=== PATIENT | male | born 1970 | race Caucasian/White ===

== ENCOUNTER 2018-04-02 10:12 | Emergency (ER) | payer OTHER, SELFPAY ==
[2018-04-02 10:17] VITALS: BP 161/96; PULSE 76; RESP 18; TEMP 36.3; O2SAT 97
[2018-04-02 11:42] VITALS: BP 149/96; PULSE 64; RESP 17; O2SAT 96
--- NOTE | 2018-04-02 12:23 | PC.NURSE ---
C/O left kidney pain starting yesterday, Calf pain since Friday, and headaches and fatigue for 3 weeks. HX of diabetes and HTN. Denies urinary symptoms. States calf pain affects his walking at times but thinks it is nerve pain.
[2018-04-02 12:24] LABS: Add Manual Diff / Slide Review NO; Basophils Percent Auto 0.4 % (0-2); Eosinophils Percent Auto 1.5 % (2-4); Hematocrit 45.2 % (41-53); Hemoglobin 15.7 g/dL (13.5-17.5); Lymphocytes Percent Auto 25.3 % (25-40); Mean Corpuscular HGB Conc 34.7 % (30-36); Mean Corpuscular Hemoglobin 30.4 PG (26-34); Mean Corpuscular Volume 87.8 fL (80-100); Monocytes Percent Auto 9.1 % (3-14); Neutrophils Absolute Auto 3900 /uL (3000-5900); Neutrophils Percent Auto 63.7 % (50-75); Platelet Count 186 X10^3/uL (150-400); Red Blood Cell Count 5.15 X10^6/uL (4.5-5.9); Red Cell Distribution Width 13.3 % (11.6-14.8); White Blood Cell Count 6.1 X10^3/uL (4.5-11.0)
[2018-04-02 12:38] LABS: Alanine Aminotransferase 48 IU/L (21-72); Albumin 4.5 g/dL (3.5-5.0); Albumin Globulin Ratio 1.6 (1.0-2.8); Alkaline Phosphatase 39 U/L (38-126); Aspartate Aminotransferase 38 IU/L (17-59); BUN Creatinine Ratio 21.4 (6-22); Bilirubin Total 0.5 mg/dL (0.2-1.3); Blood Urea Nitrogen 15 mg/dL (9-20); Calcium 9.5 mg/dL (8.4-10.2); Carbon Dioxide 23 mmol/L (22-32); Chloride 104 mmol/L (98-107); Estimated Glomerular Filt Rate > 60.0 mL/min (>60); Globulin 2.8 g/dL (1.7-4.1); Glucose 121 mg/dL (70-100); HEMOLYSIS 35 (0-50); Magnesium 2.1 mg/dL (1.6-2.3); Potassium 4.4 mmol/L (3.4-5.1); Sodium 141 mmol/L (137-145); Total Protein 7.3 g/dL (6.3-8.2)
--- NOTE | 2018-04-02 12:41 | ED.MALEGU ---
HPI - Male Genitourinary <AISSATOU Devi - Last Filed: 04/02/18 21:37> General Chief complaint: Back Pain/Injury Stated complaint: ACUTE KIDNEY PAIN, CALF PAIN, DIABETIC Time Seen by Provider: 04/02/18 11:51 Source: patient Mode of arrival: ambulatory Limitations: no limitations History of Present Illness HPI Narrative: 47-year-old male with history of type 2 diabetes is a nonsmoker here for complaint of having pain into his left flank area that started yesterday. He reports he woke up today with pain that was worse and sharp in nature he states. He denies any hematuria. Denies any crease urinary frequency or dysuria. No fever no chills. He denies any abdominal pain. Last bowel movement was earlier today and was unremarkable. No nausea or vomiting. Positive p.o. intake. He also states that he has had pain into his left calf area over the past couple of weeks. He denies any trauma to the calf area. He denies any swelling. Or erythema. He denies any stressors or relievers of his pain. Related Data Home Medications Medication Instructions Recorded Confirmed [Marijuana] #0 03/20/17 02/09/18 coenzyme Q10 [Co Q-10] 100 mg PO HS #0 06/03/17 02/09/18 lansoprazole 15 mg capsule,delayed 15 mg PO DAILY PRN 11/21/17 02/09/18 release Previous Rx's Medication Instructions Recorded simvastatin 20 mg PO HS #90 tab 06/13/17 lisinopril 20 mg tablet 20 mg PO BID #180 tab 10/24/17 metformin 1,000 mg tablet 1,000 mg PO BIDCC #180 tab 12/09/17 Allergies Allergy/AdvReac Type Severity Reaction Status Date / Time Penicillins [PENICILLINS] Allergy Intermediate CHILDHOOD Unverified 02/09/18 08:55 Review of Systems <AISSATOU Devi - Last Filed: 04/02/18 21:37> Constitutional Denies chills, Denies fever(s), Denies lethargy and Denies weakness Eyes Denies change in vision, Denies eye discharge, Denies irritation and Denies loss of vision ENT Ears, Nose, Mouth, and Throat: Denies change in voice, Denies neck pain and Denies sore throat Cardiovascular Denies chest pain, Denies irregular heart rhythm, Denies lightheadedness, Denies palpitations, Denies dyspnea, Denies dyspnea on exertion and Denies orthopnea Respiratory Denies cough, Denies dyspnea, Denies dyspnea on exertion and Denies wheezing Gastrointestinal Gastrointestinal: Denies abdominal pain, Denies change in bowel habits, Denies diarrhea, Denies nausea and Denies vomiting Genitourinary Comments: Left flank pain Musculoskeletal Denies neck pain Comments: Right calf pain Integumentary/Breasts Denies pruritus, Denies erythema, Denies rash and Denies wounds Neurologic Denies confusion, Denies loss of vision and Denies weakness Psychiatric Denies anxiety, Denies confusion, Denies depression, Denies homicidal ideation and Denies suicidal ideation Endocrine Denies palpitations Hematologic/Lymphatic Denies easy bruising Allergic/Immunologic Denies wheezing Exam <AISSATOU Devi - Last Filed: 04/02/18 21:37> Initial Vital Signs Initial Vital Signs: Vital Signs Temperature 97.4 F L 04/02/18 10:17 Pulse Rate 76 04/02/18 10:17 Respiratory Rate 18 04/02/18 10:17 Blood Pressure 161/96 H 04/02/18 10:17 Pulse Oximetry 97 04/02/18 10:17 Const General: cooperative and well developed Nutritional Appearance: well nourished Orientation: alert, awake, oriented x3 and not confused HENMT Mouth: oral mucosae normal and moist mucous membranes Eyes Conjunctivae: conjunctivae normal Sclera: sclerae normal Pupils: PERRL EOM: EOM intact bilaterally Resp Effort & Inspection: normal respiratory effort, able to speak in complete sentences, no respiratory distress and no use of accessory muscles Auscultation: clear to auscultation bilaterally, no rales, no rhonchi and no wheezes Cardio Rate: regular rate Rhythm: regular rhythm Heart Sounds: no click, no gallops, no murmurs and no rubs Pulses: normal peripheral pulses GI Inspection: non-distended Palpation: soft, no hepatosplenomegaly, No guarding, No pulsatile mass and No tender Auscultation: normal bowel sounds General: No CVA tenderness Skin General: no rashes or lesions noted, No jaundice and No petechiae Neuro General: alert, oriented x3, gait normal and no focal motor deficits Speech: speech normal <Esperanza Houser DO - Last Filed: 04/03/18 09:06> Initial Vital Signs Initial Vital Signs: Vital Signs Temperature 97.4 F L 04/02/18 10:17 Pulse Rate 76 04/02/18 10:17 Respiratory Rate 18 04/02/18 10:17 Blood Pressure 161/96 H 04/02/18 10:17 Pulse Oximetry 97 04/02/18 10:17 Course <AISSATOU Devi - Last Filed: 04/02/18 21:37> Orders Ordered: Discontinued Medications Sodium Chloride (Normal Saline 0.9%) 1,000 mls @ 1,000 mls/hr IV BOLUS ONE Stop: 04/02/18 14:00 Last Infusion: 04/02/18 14:44 Dose: 0 mls/hr Admin: 04/02/18 13:07 Dose: 1,000 mls/hr Ketorolac Tromethamine (Toradol) 30 mg IV NOW ONE Stop: 04/02/18 13:02 Last Admin: 04/02/18 13:07 Dose: 30 mg Vital Signs - 8 hr 04/02/18 17:01 Pulse Rate 63 Respiratory Rate 20 Blood Pressure 144/100 H Pulse Oximetry 96 <Esperanza Houser DO - Last Filed: 04/03/18 09:06> Orders Ordered: Discontinued Medications Sodium Chloride (Normal Saline 0.9%) 1,000 mls @ 1,000 mls/hr IV BOLUS ONE Stop: 04/02/18 14:00 Last Infusion: 04/02/18 14:44 Dose: 0 mls/hr Admin: 04/02/18 13:07 Dose: 1,000 mls/hr Ketorolac Tromethamine (Toradol) 30 mg IV NOW ONE Stop: 04/02/18 13:02 Last Admin: 04/02/18 13:07 Dose: 30 mg Vital Signs - 8 hr 04/02/18 17:01 Pulse Rate 63 Respiratory Rate 20 Blood Pressure 144/100 H Pulse Oximetry 96 MDM - Male Genitourinary <AISSATOU Devi - Last Filed: 04/02/18 21:37> Lab Data Result diagrams: 04/02/18 12:16 04/02/18 12:16 Lab Results 04/02/18 04/02/18 Range/Units 12:16 12:16 WBC 6.1 (4.5-11.0) X10^3/uL RBC 5.15 (4.5-5.9) X10^6/uL Hgb 15.7 (13.5-17.5) g/dL Hct 45.2 (41-53) % MCV 87.8 (80-100) fL MCH 30.4 (26-34) PG MCHC 34.7 (30-36) % RDW 13.3 (11.6-14.8) % Plt Count 186 (150-400) X10^3/uL Neut % (Auto) 63.7 (50-75) % Lymph % (Auto) 25.3 (25-40) % [place] % (Auto) 9.1 (3-14) % Eos % (Auto) 1.5 L (2-4) % Baso % (Auto) 0.4 (0-2) % Neut # (Auto) 3900 (7100-7532) /uL Sodium 141 (137-145) mmol/L Potassium 4.4 (3.4-5.1) mmol/L Chloride 104 (98-107) mmol/L Carbon Dioxide 23 (22-32) mmol/L BUN 15 (9-20) mg/dL Creatinine 0.70 (0.66-1.25) mg/dL Estimated GFR > 60.0 (>60) mL/min BUN/Creatinine Ratio 21.4 (6-22) Glucose 121 H (70-100) mg/dL Calcium 9.5 (8.4-10.2) mg/dL Magnesium 2.1 (1.6-2.3) mg/dL Total Bilirubin 0.5 (0.2-1.3) mg/dL AST 38 (17-59) IU/L ALT 48 (21-72) IU/L Alkaline Phosphatase 39 (38-126) U/L Total Protein 7.3 (6.3-8.2) g/dL Albumin 4.5 (3.5-5.0) g/dL Globulin 2.8 (1.7-4.1) g/dL Albumin/Globulin Ratio 1.6 (1.0-2.8) Urine Dip Bedside Urine Glucose Negative Bedside Urine Bilirubin - Negative Bedside Urine Ketone - Negative Urine Specific Acra 1.030 Bedside Urine Occult Blood - Negative Bedside Urine pH 6.0 Bedside Urine Protein - Negative Bedside Urine Urobilinogen - Negative Bedside Urine Nitrite - Negative Bedside Urine Leukocytes - Negative Esterase Imaging Data CT scan - abdomen: Radiologist's impression: [address] [place] [id number] Scan Report Signed Patient: Sav Rush LMR#: [id number] : 1970Acct:[id number] Age/Sex: 47 / MDate of Service: 04/02/18 Loc: ED Accession Number: [id number] Procedure: CT kidney ureter bladder (KUB) Ordering Provider: Nestor Hartman PROCEDURE: CT KIDNEY URETER BLADDER (KUB) INDICATIONS: Left flank pain TECHNIQUE: Noncontrast 5 mm thick sections acquired from the diaphragms to the symphysis. 5 mm thick coronal and sagittal reformats were then performed. For radiation dose reduction, the following was used: automated exposure control, adjustment of mA and/or kV according to patient size. COMPARISON: None. FINDINGS: Image quality: Excellent. Lung bases: Lung bases are clear. Heart size is normal. Urinary system: Both kidneys are normal in size. No kidney stones on the left but there is a 1-2 mm superior nonobstructive right renal collecting system calculus. No hydronephrosis or perinephric fat stranding. Both ureters appear non-dilated throughout their expected courses. Bladder wall thickness is normal; no calcified bladder stones. Other solid organs: Liver is normal in size. Gallbladder appears previously resected. Pancreas is normal in contours. Spleen is normal in size. No adrenal nodules. Peritoneum and bowel: Unenhanced bowel loops demonstrate normal wall thickness and caliber. No free fluid or air. Nodes and vessels: No retroperitoneal or mesenteric adenopathy by size criteria. Aorta and inferior vena cava are normal in caliber. Abdominal wall: No ventral hernias. Pelvis: No free pelvic fluid. No inguinal hernias or adenopathy. Bones: No suspicious bony lesions. No vertebral body compression fractures. IMPRESSION: Nonobstructive 1-2 mm calculus at the superior third collecting system of the right kidney. Prior cholecystectomy. No source of reported left-sided flank pain is found. Dictated by: Luciano Arriola M.D. on 04/02/2018 at 14:12 Approved by: Luciano Arriola M.D. on 04/02/2018 at 14:14 Venous US: Radiologist's impression: [address] [id number] Ultrasound Report Signed Patient: Sav Rush LMR#: [id number] : 1970Acct:[id number] Age/Sex: 47 / MDate of Service: 04/02/18 Loc: ED Accession Number: [id number] Procedure: US periph venous low extrem rt Ordering Provider: Nestor Hartman PROCEDURE: US PERIPH VENOUS LOW EXTREM RT INDICATIONS: Pain to right calf TECHNIQUE: Real-time imaging, as well as color and pulse Doppler interrogation, were performed of the lower extremity deep veins from the inguinal ligament to the popliteal fossa. COMPARISON: None. FINDINGS: The deep veins are normally compressible, and free of intraluminal thrombus. Color and pulse Doppler demonstrate normal phasic intraluminal flow. There is normal augmentation response to distal compression maneuver. IMPRESSION: No DVT found. Dictated by: Luciano rAriola M.D. on 04/02/2018 at 16:32 Approved by: Luciano Arriola M.D. on 04/02/2018 at 16:33 [facility] Narrative Medical decision making narrative: CT of the abdomen was obtained was negative for any acute findings. Ultrasound of the right lower extremity was obtained was negative for any blood clots. Laboratory results were unremarkable. Signs and symptoms presents as a muscle pain into the right lower extremity and also to the lumbar spine. [id number] Tylenol as needed for any discomfort. Patient accidentally had ultrasound gel get to his right eye on exam did not see any redness or complications to the right eye. Right eye was irrigated with normal saline. Gentle [id number] stretching painful areas. Follow up with primary care provider next week. For any worsening symptoms return emergency room. <Esperanza Houser, - Last Filed: 04/03/18 09:06> Lab Data Lab Results 04/02/18 04/02/18 Range/Units 12:16 12:16 WBC 6.1 (4.5-11.0) X10^3/uL RBC 5.15 (4.5-5.9) X10^6/uL Hgb 15.7 (13.5-17.5) g/dL Hct 45.2 (41-53) % MCV 87.8 (80-100) fL MCH 30.4 (26-34) PG MCHC 34.7 (30-36) % RDW 13.3 (11.6-14.8) % Plt Count 186 (150-400) X10^3/uL Neut % (Auto) 63.7 (50-75) % Lymph % (Auto) 25.3 (25-40) % [place] % (Auto) 9.1 (3-14) % Eos % (Auto) 1.5 L (2-4) % Baso % (Auto) 0.4 (0-2) % Neut # (Auto) 3900 (1688-9161) /uL Sodium 141 (137-145) mmol/L Potassium 4.4 (3.4-5.1) mmol/L Chloride 104 (98-107) mmol/L Carbon Dioxide 23 (22-32) mmol/L BUN 15 (9-20) mg/dL Creatinine 0.70 (0.66-1.25) mg/dL Estimated GFR > 60.0 (>60) mL/min BUN/Creatinine Ratio 21.4 (6-22) Glucose 121 H (70-100) mg/dL Calcium 9.5 (8.4-10.2) mg/dL Magnesium 2.1 (1.6-2.3) mg/dL Total Bilirubin 0.5 (0.2-1.3) mg/dL AST 38 (17-59) IU/L ALT 48 (21-72) IU/L Alkaline Phosphatase 39 (38-126) U/L Total Protein 7.3 (6.3-8.2) g/dL Albumin 4.5 (3.5-5.0) g/dL Globulin 2.8 (1.7-4.1) g/dL Albumin/Globulin Ratio 1.6 (1.0-2.8) Urine Dip Bedside Urine Glucose Negative Bedside Urine Bilirubin - Negative Bedside Urine Ketone - Negative Urine Specific Acra 1.030 Bedside Urine Occult Blood - Negative Bedside Urine pH 6.0 Bedside Urine Protein - Negative Bedside Urine Urobilinogen - Negative Bedside Urine Nitrite - Negative Bedside Urine Leukocytes - Negative Esterase Discharge Plan Departure Patient Disposition: Home Clinical Impression: Back pain Discharge Date/Time: 04/02/18 17:04 Interventions: ED Discharge Assessment Last Done: 04/02/18 17:01 Instructions: DI for Low Back Pain Activity Restrictions/Additional Instructions: CT of the abdomen was obtained was negative for any acute findings. Ultrasound of the right lower extremity was negative for any blood clots. Laboratory results today were unremarkable. Signs and symptoms presents as muscle skeletal pain to both the lower extremity and also her lower back. Use [id number] Tylenol as needed for any discomfort. Gentle range of motion and stretching into the right lower extremity and the lower back. Follow up with her primary care provider next week for re-evaluation. For any worsening symptoms return to the emergency room. Prescriptions: No Action lansoprazole [Prevacid] 15 mg capsule,delayed release(DR/EC) 15 mg PO DAILY PRNRF: 0 [Marijuana] Qty: 0 RF: 0 coenzyme Q10 [Co Q-10] 100 MG capsule 100 mg PO HS Qty: 0 RF: 0 simvastatin 20 MG tablet 20 mg PO HS Qty: 90 RF: 3 lisinopril [Prinivil] 20 mg tablet 20 mg PO BID Qty: 180 RF: 1 metformin 1,000 mg tablet 1,000 mg PO BIDCC Qty: 180 RF: 1 Referrals: [facility] [Provider Group] <Esperanza Houser DO - Last Filed: 04/03/18 09:06> Cosign ED Attending Cosangelikaature Attestation: I was immediately available in the department for consultation. Documentation has been reviewed. I agree with assessment and plan.
--- NOTE | 2018-04-02 13:01 | DI.CT.S_ITS ---
PROCEDURE: CT KIDNEY URETER BLADDER (KUB) INDICATIONS: Left flank pain TECHNIQUE: Noncontrast 5 mm thick sections acquired from the diaphragms to the symphysis. 5 mm thick coronal and sagittal reformats were then performed. For radiation dose reduction, the following was used: automated exposure control, adjustment of mA and/or kV according to patient size. COMPARISON: None. FINDINGS: Image quality: Excellent. Lung bases: Lung bases are clear. Heart size is normal. Urinary system: Both kidneys are normal in size. No kidney stones on the left but there is a 1-2 mm superior nonobstructive right renal collecting system calculus. No hydronephrosis or perinephric fat stranding. Both ureters appear non-dilated throughout their expected courses. Bladder wall thickness is normal; no calcified bladder stones. Other solid organs: Liver is normal in size. Gallbladder appears previously resected. Pancreas is normal in contours. Spleen is normal in size. No adrenal nodules. Peritoneum and bowel: Unenhanced bowel loops demonstrate normal wall thickness and caliber. No free fluid or air. Nodes and vessels: No retroperitoneal or mesenteric adenopathy by size criteria. Aorta and inferior vena cava are normal in caliber. Abdominal wall: No ventral hernias. Pelvis: No free pelvic fluid. No inguinal hernias or adenopathy. Bones: No suspicious bony lesions. No vertebral body compression fractures. IMPRESSION: Nonobstructive 1-2 mm calculus at the superior third collecting system of the right kidney. Prior cholecystectomy. No source of reported left-sided flank pain is found. Dictated by: Luciano Arriola M.D. on 04/02/2018 at 14:12 Approved by: Luciano Arriola M.D. on 04/02/2018 at 14:14
[2018-04-02] MEDS: KETOROLAC 60 MG/2 ML VIAL 30 MG IV (13:07)
[2018-04-02] MEDS: SODIUM CHLORIDE 0.9% 1,000 ML 1000 ML IV (13:07)
--- NOTE | 2018-04-02 15:23 | DI.US.S_ITS ---
PROCEDURE: US PERIPH VENOUS LOW EXTREM RT INDICATIONS: Pain to right calf TECHNIQUE: Real-time imaging, as well as color and pulse Doppler interrogation, were performed of the lower extremity deep veins from the inguinal ligament to the popliteal fossa. COMPARISON: None. FINDINGS: The deep veins are normally compressible, and free of intraluminal thrombus. Color and pulse Doppler demonstrate normal phasic intraluminal flow. There is normal augmentation response to distal compression maneuver. IMPRESSION: No DVT found. Dictated by: Luciano Arriola M.D. on 04/02/2018 at 16:32 Approved by: Luciano Arriola M.D. on 04/02/2018 at 16:33
[2018-04-02 17:01] VITALS: BP 144/100; PULSE 63; RESP 20; O2SAT 96
--- NOTE | 2018-04-04 15:31 | PC.NURSE ---
pt stated he is feeling better and the visit was fine.
== END 2018-04-02 17:04 | disposition home or self-care (01) ==
PROVIDERS: Emergency Medicine; Emergency Provider Nurse Practitioner Family
DX: M54.9 Dorsalgia, unspecified (principal)
CPT/HCPCS: 36591; 74176; 80053; 81003; 83735; 85025; 93971; 96361; 96374; 99283; 99285; J1885

== ENCOUNTER 2018-04-13 07:41 | Emergency (ER) | payer OTHER, SELFPAY ==
[2018-04-13 07:56] VITALS: BP 165/100; PULSE 72; RESP 16; TEMP 36.4; O2SAT 95; BMI 32.5
--- NOTE | 2018-04-13 08:05 | DI.RAD.S_ITS ---
PROCEDURE: XR KUB INDICATIONS: pain, history of stones. TECHNIQUE: One view of the abdomen acquired. COMPARISON: None. FINDINGS: Surgical changes and devices: None. Bowel: Bowel gas pattern is normal except for moderate colonic obstipation. Soft tissues: No suspicious abdominal calcifications. Visualized solid organ contours appear normal in size. Bones: No suspicious bony lesions. IMPRESSION: Moderate colonic obstipation, no acute disease. Dictated by: Luciano Arriola M.D. on 04/13/2018 at 8:31 Approved by: Luciano Arriola M.D. on 04/13/2018 at 8:33
[2018-04-13 08:21] LABS: Add Manual Diff / Slide Review NO; Basophils Percent Auto 0.4 % (0-2); Eosinophils Percent Auto 2.5 % (2-4); Hematocrit 44.9 % (41-53); Hemoglobin 15.7 g/dL (13.5-17.5); Lymphocytes Percent Auto 31.8 % (25-40); Mean Corpuscular HGB Conc 34.9 % (30-36); Mean Corpuscular Hemoglobin 30.7 PG (26-34); Mean Corpuscular Volume 87.9 fL (80-100); Monocytes Percent Auto 8.5 % (3-14); Neutrophils Absolute Auto 3000 /uL (3000-5900); Neutrophils Percent Auto 56.8 % (50-75); Platelet Count 177 X10^3/uL (150-400); Red Blood Cell Count 5.11 X10^6/uL (4.5-5.9); Red Cell Distribution Width 13.3 % (11.6-14.8); White Blood Cell Count 5.3 X10^3/uL (4.5-11.0)
[2018-04-13 08:27] LABS: BUN Creatinine Ratio 16.3 (6-22); Blood Urea Nitrogen 13 mg/dL (9-20); Calcium 9.6 mg/dL (8.4-10.2); Carbon Dioxide 26 mmol/L (22-32); Chloride 103 mmol/L (98-107); Estimated Glomerular Filt Rate > 60.0 mL/min (>60); Glucose 133 mg/dL (70-100); HEMOLYSIS < 15 (0-50); Potassium 4.4 mmol/L (3.4-5.1); Sodium 141 mmol/L (137-145)
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
[2018-04-13] MEDS: HYDROMORPHONE 2 MG INJ 1 MG IV (08:50)
--- NOTE | 2018-04-13 09:09 | DI.CT.S_ITS ---
PROCEDURE: CT LUMBAR SPINE WO CON INDICATIONS: left sided pain and radiculopathy TECHNIQUE: Noncontrast 3 mm thick sections acquired from the T12 level to the sacrum. Sagittal and coronal reformats were constructed. For radiation dose reduction, the following was used: automated exposure control. COMPARISON: [facility], CT, CT KIDNEY URETER BLADDER (KUB), 04/02/2018, 13:35. [facility], CR, XR KUB, 04/13/2018, 8:16. FINDINGS: Image quality: Excellent. Bones: There is normal bony alignment. No acute vertebral body compression fractures. No suspicious lytic or blastic bony lesions. Central spinal caliber is of normal overall caliber. No pars defects. T12-L1: Normal. L1-L2: Normal. L2-L3: Normal. L3-L4: The disc height is well-preserved. Mild generalized disc bulge is seen. No significant neural foraminal or central canal narrowing can be seen. L4-L5: The disc height is well-preserved. Moderate disc bulge is seen. Mild bilateral neural foraminal narrowing is seen. Minimal central canal narrowing is seen. L5-S1: The disc height is well-preserved. Mild generalized disc bulge is seen. Mild to moderate facet hypertrophy is seen. No significant neural foraminal or central canal narrowing can be seen. Soft tissues: No retroperitoneal masses or hematomas. Within the superior right kidney, there is a nonobstructing 1-2 mm stone seen. No left-sided stones are seen. No hydronephrosis. Visualized aorta is normal in caliber. Cholecystectomy clips are seen on the forest nursery supervisor image. IMPRESSION: Mild lower lumbar spine degenerative changes are seen, without an acute abnormality seen. Incidental note is made of: 1-2 mm nonobstructing right-sided kidney stone Cholecystectomy Dictated by: Humberto Umaña M.D. on 04/13/2018 at 8:25 Approved by: Humberto Umaña M.D. on 04/13/2018 at 8:29
[2018-04-13 09:42] VITALS: BP 147/98; PULSE 62; RESP 14; O2SAT 96
== END 2018-04-13 10:21 | disposition home or self-care (01) ==
PROVIDERS: Emergency Provider Emergency Medicine; PCP Student in an Organized Health Care Education/Training Program
DX: M54.10 Radiculopathy, site unspecified (principal)
CPT/HCPCS: 36591; 72131; 74018; 80048; 81003; 85025; 96374; 99283; 99284; J1170

== ENCOUNTER 2018-04-20 12:13 | Emergency (ER) | payer OTHER, SELFPAY ==
[2018-04-20 12:25] VITALS: BP 164/119; PULSE 92; RESP 20; TEMP 36.6; O2SAT 97; BMI 38.7
--- NOTE | 2018-04-20 12:42 | ED.MALEGU ---
HPI - Male Genitourinary <AISSATOU Devi - Last Filed: 04/20/18 22:10> General Chief complaint: Urogenital-Male Stated complaint: sent by doctor for testicular Torsion Time Seen by Provider: 04/20/18 12:44 Source: patient Mode of arrival: ambulatory Limitations: no limitations History of Present Illness HPI Narrative: 47-year-old male with history of hypertension as a nonsmoker here for complaint of having pain into his left flank area and also into his left testicle for the last 2 weeks. He was sent here by his primary care provider who saw him today to rule out torsion to his left testicle. He had a CT of his lower back completed last week that does show some degenerative changes however no other findings were seen. He is currently treated for his pain with gabapentin and [place]. He denies any trauma to the area. He denies any urine changes. He does state he has a history of kidney stones. He denies any fevers or chills. Related Data Home Medications Medication Instructions Recorded Confirmed coenzyme Q10 [Co Q-10] 100 mg PO BEDTIME #0 06/03/17 04/20/18 hydrocodone-acetaminophen 1 tab PO Q6H PRN 04/20/18 04/20/18 simvastatin 20 mg PO BEDTIME 04/20/18 04/20/18 Previous Rx's Medication Instructions Recorded lisinopril 20 mg tablet 20 mg PO BID #180 tab 10/24/17 metformin 1,000 mg tablet 1,000 mg PO BIDCC #180 tab 12/09/17 meloxicam [Mobic] 7.5 mg PO DAILY PRN #20 tab 04/13/18 gabapentin 300 mg capsule 300 mg PO TID #30 cap 04/17/18 diazepam 5 mg tablet 5 mg PO BID #45 tab 04/20/18 levofloxacin [Levaquin] 500 mg PO DAILY 10 Days #10 tab 04/20/18 Allergies Allergy/AdvReac Type Severity Reaction Status Date / Time Penicillins [PENICILLINS] Allergy Intermediate CHILDHOOD Verified 04/20/18 11:27 gabapentin AdvReac Intermediate diplopia Verified 04/20/18 11:27 Review of Systems <AISSATOU Devi - Last Filed: 04/20/18 22:10> Constitutional Denies chills, Denies fever(s), Denies lethargy and Denies weakness Eyes Denies change in vision, Denies eye discharge, Denies irritation and Denies loss of vision Cardiovascular Denies chest pain, Denies irregular heart rhythm, Denies lightheadedness, Denies palpitations, Denies dyspnea, Denies dyspnea on exertion and Denies orthopnea Respiratory Denies cough, Denies dyspnea, Denies dyspnea on exertion and Denies wheezing Gastrointestinal Gastrointestinal: Denies abdominal pain, Denies change in bowel habits, Denies diarrhea, Denies nausea and Denies vomiting Genitourinary Comments: Left flank pain and left testicular pain Musculoskeletal Denies back pain, Denies muscle weakness, Denies numbness and Denies tingling Integumentary/Breasts Denies pruritus, Denies erythema, Denies rash and Denies wounds Neurologic Denies confusion, Denies loss of vision, Denies numbness, Denies tingling and Denies weakness Psychiatric Denies anxiety, Denies confusion, Denies depression, Denies homicidal ideation and Denies suicidal ideation Endocrine Denies palpitations Hematologic/Lymphatic Denies easy bruising Allergic/Immunologic Denies wheezing Exam <AISSATOU Devi - Last Filed: 04/20/18 22:10> Initial Vital Signs Initial Vital Signs: Vital Signs Temperature 98 F 04/20/18 12:25 Pulse Rate 92 H 04/20/18 12:25 Respiratory Rate 20 04/20/18 12:25 Blood Pressure 164/119 H 04/20/18 12:25 Pulse Oximetry 97 04/20/18 12:25 Const General: cooperative and well developed Nutritional Appearance: well nourished Orientation: alert, awake, oriented x3 and not confused [facility] Mouth: oral mucosae normal and moist mucous membranes Eyes General: appearance normal, both eyes and all related structures Eyelids: eyelids normal Conjunctivae: conjunctivae normal Sclera: sclerae normal Pupils: PERRL EOM: EOM intact bilaterally Resp Effort & Inspection: normal respiratory effort, able to speak in complete sentences, no respiratory distress and no use of accessory muscles Auscultation: clear to auscultation bilaterally, no rales, no rhonchi and no wheezes Cardio Rate: regular rate Rhythm: regular rhythm Heart Sounds: no click, no gallops, no murmurs and no rubs Pulses: normal peripheral pulses GI Inspection: non-distended Palpation: soft, no hepatosplenomegaly, No guarding, No pulsatile mass and No tender Auscultation: normal bowel sounds General: No CVA tenderness Back/Spine/Pelvis Other: Tenderness to the paraspinals of the lumbar spine. Skin General: no rashes or lesions noted, No jaundice and No petechiae Neuro General: alert, oriented x3, gait normal and no focal motor deficits Speech: speech normal <Rosaura Victor DO - Last Filed: 04/21/18 08:11> Initial Vital Signs Initial Vital Signs: Vital Signs Temperature 98 F 04/20/18 12:25 Pulse Rate 92 H 04/20/18 12:25 Respiratory Rate 20 04/20/18 12:25 Blood Pressure 164/119 H 04/20/18 12:25 Pulse Oximetry 97 04/20/18 12:25 Course <AISSATOU Devi - Last Filed: 04/20/18 22:10> Orders Ordered: Discontinued Medications Hydrocodone Bitart/Acetaminophen ([place] 5/325) 1 tab PO NOW ONE Stop: 04/20/18 17:00 Last Admin: 04/20/18 17:05 Dose: 1 tab Hydromorphone HCl (Dilaudid) 0.5 mg IV NOW ONE Stop: 04/20/18 13:16 Last Admin: 04/20/18 13:31 Dose: 0.5 mg Hydromorphone HCl (Dilaudid) 0.5 mg IV NOW ONE Stop: 04/20/18 14:12 Last Admin: 04/20/18 14:20 Dose: 0.5 mg Sodium Chloride (Normal Saline 0.9%) 1,000 mls @ 1,000 mls/hr IV BOLUS ONE Stop: 04/20/18 14:14 Last Infusion: 04/20/18 14:26 Dose: 0 mls/hr Admin: 04/20/18 13:32 Dose: 1,000 mls/hr Ketorolac Tromethamine (Toradol) 30 mg IV NOW ONE Stop: 04/20/18 13:16 Last Admin: 04/20/18 13:32 Dose: 30 mg Vital Signs - 8 hr 04/20/18 16:15 04/20/18 18:12 Pulse Rate 66 65 Respiratory Rate 19 18 Blood Pressure [Right Arm] 154/111 H 142/94 H Pulse Oximetry 95 96 <Rosaura Victor DO - Last Filed: 04/21/18 08:11> Orders Ordered: Discontinued Medications Hydrocodone Bitart/Acetaminophen ([place] 5/325) 1 tab PO NOW ONE Stop: 04/20/18 17:00 Last Admin: 04/20/18 17:05 Dose: 1 tab Hydromorphone HCl (Dilaudid) 0.5 mg IV NOW ONE Stop: 04/20/18 13:16 Last Admin: 04/20/18 13:31 Dose: 0.5 mg Hydromorphone HCl (Dilaudid) 0.5 mg IV NOW ONE Stop: 04/20/18 14:12 Last Admin: 04/20/18 14:20 Dose: 0.5 mg Sodium Chloride (Normal Saline 0.9%) 1,000 mls @ 1,000 mls/hr IV BOLUS ONE Stop: 04/20/18 14:14 Last Infusion: 04/20/18 14:26 Dose: 0 mls/hr Admin: 04/20/18 13:32 Dose: 1,000 mls/hr Ketorolac Tromethamine (Toradol) 30 mg IV NOW ONE Stop: 04/20/18 13:16 Last Admin: 04/20/18 13:32 Dose: 30 mg Vital Signs - 8 hr 04/20/18 16:15 04/20/18 18:12 Pulse Rate 66 65 Respiratory Rate 19 18 Blood Pressure [Right Arm] 154/111 H 142/94 H Pulse Oximetry 95 96 MDM - Male Genitourinary <AISSATOU Devi - Last Filed: 04/20/18 22:10> Lab Data Result diagrams: 04/20/18 13:35 04/20/18 13:35 Lab Results 04/20/18 04/20/18 04/20/18 Range/Units 13:35 13:35 14:17 WBC 6.1 (4.5-11.0) X10^3/uL RBC 5.15 (4.5-5.9) X10^6/uL Hgb 15.8 (13.5-17.5) g/dL Hct 45.2 (41-53) % MCV 87.9 (80-100) fL MCH 30.8 (26-34) PG MCHC 35.0 (30-36) % RDW 13.1 (11.6-14.8) % Plt Count 213 (150-400) X10^3/uL Neut % (Auto) 68.9 (50-75) % Lymph % (Auto) 21.2 L (25-40) % [place] % (Auto) 7.6 (3-14) % Eos % (Auto) 1.9 L (2-4) % Baso % (Auto) 0.4 (0-2) % Neut # (Auto) 4200 (8900-5760) /uL Sodium 141 (137-145) mmol/L Potassium 4.7 (3.4-5.1) mmol/L Chloride 104 (98-107) mmol/L Carbon Dioxide 23 (22-32) mmol/L BUN 19 (9-20) mg/dL Creatinine 0.70 (0.66-1.25) mg/dL Estimated GFR > 60.0 (>60) mL/min BUN/Creatinine Ratio 27.1 H (6-22) Glucose 120 H (70-100) mg/dL Calcium 9.6 (8.4-10.2) mg/dL Total Bilirubin 0.4 (0.2-1.3) mg/dL AST 40 (17-59) IU/L ALT 40 (21-72) IU/L Alkaline Phosphatase 46 (38-126) U/L Total Protein 7.5 (6.3-8.2) g/dL Albumin 4.5 (3.5-5.0) g/dL Globulin 3.0 (1.7-4.1) g/dL Albumin/Globulin Ratio 1.5 (1.0-2.8) Ur Chlamydia DNA (PCR) Not detected N gonorrhoeae DNA (PCR) Not detected Urine Dip Bedside Urine Glucose Negative Bedside Urine Bilirubin - Negative Bedside Urine Ketone - Negative Urine Specific [place] 1.030 Bedside Urine Occult Blood - Negative Bedside Urine pH 6.0 Bedside Urine Protein - Negative Bedside Urine Urobilinogen - Negative Bedside Urine Nitrite - Negative Bedside Urine Leukocytes - Negative Esterase Imaging Data Scrotal ultrasound : Radiologist's impression: [address] [address] Ultrasound Report Signed Patient: Sav Rush LMR#: [id number] : 1970Acct:[id number] Age/Sex: 47 / MDate of Service: 04/20/18 Loc: ED Accession Number: [id number] Procedure: US scrotum Ordering Provider: Nestor Hartman PROCEDURE: US SCROTUM INDICATIONS: Pain to the left testicle area TECHNIQUE: Real-time scanning was performed of the scrotum and testicles, with image documentation. Color and pulse Doppler interrogation was performed of both testicles. COMPARISON: None. FINDINGS: Right: Testicle is normal in size at 5.1 x 2.9 x 3.3 cm, and homogenous in echotexture. Epididymis is normal in overall size and morphology. No hydrocele or varicoceles. Overlying scrotal skin is normal in thickness. Left: Testicle is normal in size at 4.0 x 2.6 x 3.6 cm, and homogeneous in echotexture. Epididymis is normal in overall size and morphology. No hydrocele or varicoceles. Overlying scrotal skin is normal in thickness. Doppler: Color and pulse Doppler demonstrate normal and symmetric arterial flow in both testicles. IMPRESSION: 1. No acute abnormality. Intermittent torsion cannot be excluded. Dictated by: Eva Carr M.D. on 04/20/2018 at 14:28 Approved by: Eva Carr M.D. on 04/20/2018 at 15:06 Renal ultrasound : Radiologist's impression: Ultrasound Report Signed Patient: Sav Rush LMR#: [id number] : 1970Acct:[id number] Age/Sex: 47 / MDate of Service: 04/20/18 Loc: ED Accession Number: [id number] Procedure: US renal complete Ordering Provider: Nestor Hartman PROCEDURE: US RENAL COMPLETE INDICATIONS: Pain to the left flank area and left testicular area history TECHNIQUE: Real-time scanning was performed of the kidneys and bladder, with image documentation. COMPARISON: [facility], CT, CT KIDNEY URETER BLADDER (KUB), 04/02/2018, 13:35. [facility], CT, CT LUMBAR SPINE WO CON, 04/13/2018, 8:48. FINDINGS: Kidneys: Kidneys are normal in size. Right kidney measures 12.9 cm long; left kidney measures 13.0 cm long. Right renal cortical thickness is 2.2 cm; left renal cortical thickness is 1.9 cm. Renal cortical echotexture is normal. No hydronephrosis. Within the right kidney, there are 8 and 4 mm foci of increased echogenicity within the lower pole. A 5 mm focus is noted in the upper pole. 5 mm focus is noted in the lower pole of the left kidney. Right upper pole calcification was present on 04/02/18. No suspicious solid mass lesions. Bladder: Pre-void bladder volume is zero mL. Miscellaneous: No free pelvic fluid. IMPRESSION: 1. Nonobstructing sub-centimeter bilateral renal calculi. Dictated by: Eva Carr M.D. on 04/20/2018 at 15:06 Approved by: Eva Carr M.D. on 04/20/2018 at 15:08 MDM Narrative Medical decision making narrative: CBC and Chem panel were obtained were unremarkable. Urinalysis was negative. Ultrasound of the renal area and also the scrotal area was negative for any acute findings. Will have patient continue taking currently prescribed pain management regimen as directed. GC chlamydia was obtained was negative. Will empirically treat for epididymitis with Levaquin. Discussed case with Dr. Marquez will follow up with patient later this week with consideration for MRI for further workup for his back pain. For any worsening symptoms return to the emergency room. <Rosaura Victor, DO - Last Filed: 04/21/18 08:11> Lab Data Lab Results 04/20/18 04/20/18 04/20/18 Range/Units 13:35 13:35 14:17 WBC 6.1 (4.5-11.0) X10^3/uL RBC 5.15 (4.5-5.9) X10^6/uL Hgb 15.8 (13.5-17.5) g/dL Hct 45.2 (41-53) % MCV 87.9 (80-100) fL MCH 30.8 (26-34) PG MCHC 35.0 (30-36) % RDW 13.1 (11.6-14.8) % Plt Count 213 (150-400) X10^3/uL Neut % (Auto) 68.9 (50-75) % Lymph % (Auto) 21.2 L (25-40) % [place] % (Auto) 7.6 (3-14) % Eos % (Auto) 1.9 L (2-4) % Baso % (Auto) 0.4 (0-2) % Neut # (Auto) 4200 (7785-7294) /uL Sodium 141 (137-145) mmol/L Potassium 4.7 (3.4-5.1) mmol/L Chloride 104 (98-107) mmol/L Carbon Dioxide 23 (22-32) mmol/L BUN 19 (9-20) mg/dL Creatinine 0.70 (0.66-1.25) mg/dL Estimated GFR > 60.0 (>60) mL/min BUN/Creatinine Ratio 27.1 H (6-22) Glucose 120 H (70-100) mg/dL Calcium 9.6 (8.4-10.2) mg/dL Total Bilirubin 0.4 (0.2-1.3) mg/dL AST 40 (17-59) IU/L ALT 40 (21-72) IU/L Alkaline Phosphatase 46 (38-126) U/L Total Protein 7.5 (6.3-8.2) g/dL Albumin 4.5 (3.5-5.0) g/dL Globulin 3.0 (1.7-4.1) g/dL Albumin/Globulin Ratio 1.5 (1.0-2.8) Ur Chlamydia DNA (PCR) Not detected N gonorrhoeae DNA (PCR) Not detected Urine Dip Bedside Urine Glucose Negative Bedside Urine Bilirubin - Negative Bedside Urine Ketone - Negative Urine Specific [place] 1.030 Bedside Urine Occult Blood - Negative Bedside Urine pH 6.0 Bedside Urine Protein - Negative Bedside Urine Urobilinogen - Negative Bedside Urine Nitrite - Negative Bedside Urine Leukocytes - Negative Esterase Discharge Plan Departure Patient Disposition: Home Clinical Impression: Low back pain Discharge Date/Time: 04/20/18 18:21 Interventions: ED Discharge Assessment Last Done: 04/20/18 18:20 Instructions: DI for Low Back Pain Activity Restrictions/Additional Instructions: Ultrasound of the renal area shows some stones in the kidneys that are not actually passing however no other acute findings. Ultrasound of the scrotal area was negative for any acute findings. Laboratory results today were unremarkable. Will empirically treat for epididymitis and infection of the epididymis with an antibiotic use as directed. Use currently prescribed pain management regimen as directed by your primary care provider. Follow up with her primary care provider in the next few days for re-evaluation. For any worsening symptoms return to the emergency room. Prescriptions: New levofloxacin [Levaquin] 500 mg tablet 500 mg PO DAILY 10 Days Qty: 10 RF: 0 No Action coenzyme Q10 [Co Q-10] 100 MG capsule 100 mg PO BEDTIME Qty: 0 RF: 0 lisinopril [Prinivil] 20 mg tablet 20 mg PO BID Qty: 180 RF: 1 metformin 1,000 mg tablet 1,000 mg PO BIDCC Qty: 180 RF: 1 gabapentin 300 mg capsule 300 mg PO TID Qty: 30 RF: 2 diazepam 5 mg tablet 5 mg PO BID Qty: 45 RF: 0 hydrocodone-acetaminophen 7.5-325 mg Tablet 1 tab PO Q6H PRN (Reason: pain) RF: 0 simvastatin 20 MG tablet 20 mg PO BEDTIME RF: 0 meloxicam [Mobic] 7.5 mg tablet 7.5 mg PO DAILY PRN (Reason: pain) Qty: 20 RF: 0 Referrals: Ramy Marquez MD [Primary Care Provider] - <Rosaura Victor DO - Last Filed: 04/21/18 08:11> Cosign ED Attending Cosignature Attestation: I was immediately available in the department for consultation, case was discussed. This documentation has been reviewed and I agree with assessment and plan. Supervised by Rosaura Victor DO
--- NOTE | 2018-04-20 13:15 | DI.US.S_ITS ---
PROCEDURE: US RENAL COMPLETE INDICATIONS: Pain to the left flank area and left testicular area history TECHNIQUE: Real-time scanning was performed of the kidneys and bladder, with image documentation. COMPARISON: [facility], CT, CT KIDNEY URETER BLADDER (KUB), 04/02/2018, 13:35. [facility], CT, CT LUMBAR SPINE WO CON, 04/13/2018, 8:48. FINDINGS: Kidneys: Kidneys are normal in size. Right kidney measures 12.9 cm long; left kidney measures 13.0 cm long. Right renal cortical thickness is 2.2 cm; left renal cortical thickness is 1.9 cm. Renal cortical echotexture is normal. No hydronephrosis. Within the right kidney, there are 8 and 4 mm foci of increased echogenicity within the lower pole. A 5 mm focus is noted in the upper pole. 5 mm focus is noted in the lower pole of the left kidney. Right upper pole calcification was present on 04/02/18. No suspicious solid mass lesions. Bladder: Pre-void bladder volume is zero mL. Miscellaneous: No free pelvic fluid. IMPRESSION: 1. Nonobstructing sub-centimeter bilateral renal calculi. Dictated by: Eva Carr M.D. on 04/20/2018 at 15:06 Approved by: Eva Carr M.D. on 04/20/2018 at 15:08
[2018-04-20] MEDS: HYDROMORPHONE 1 MG INJ 0.5 MG IV ×2 (13:31→14:20)
[2018-04-20] MEDS: SODIUM CHLORIDE 0.9% 1,000 ML 1000 ML IV (13:32)
[2018-04-20] MEDS: KETOROLAC 60 MG/2 ML VIAL 30 MG IV (13:32)
[2018-04-20 13:43] LABS: Add Manual Diff / Slide Review NO; Basophils Percent Auto 0.4 % (0-2); Eosinophils Percent Auto 1.9 % (2-4); Hematocrit 45.2 % (41-53); Hemoglobin 15.8 g/dL (13.5-17.5); Lymphocytes Percent Auto 21.2 % (25-40); Mean Corpuscular Hemoglobin 30.8 PG (26-34); Mean Corpuscular Volume 87.9 fL (80-100); Monocytes Percent Auto 7.6 % (3-14); Neutrophils Absolute Auto 4200 /uL (3000-5900); Neutrophils Percent Auto 68.9 % (50-75); Platelet Count 213 X10^3/uL (150-400); Red Blood Cell Count 5.15 X10^6/uL (4.5-5.9); Red Cell Distribution Width 13.1 % (11.6-14.8); White Blood Cell Count 6.1 X10^3/uL (4.5-11.0)
[2018-04-20 14:00] LABS: Alanine Aminotransferase 40 IU/L (21-72); Albumin 4.5 g/dL (3.5-5.0); Albumin Globulin Ratio 1.5 (1.0-2.8); Alkaline Phosphatase 46 U/L (38-126); Aspartate Aminotransferase 40 IU/L (17-59); BUN Creatinine Ratio 27.1 (6-22); Bilirubin Total 0.4 mg/dL (0.2-1.3); Blood Urea Nitrogen 19 mg/dL (9-20); Calcium 9.6 mg/dL (8.4-10.2); Carbon Dioxide 23 mmol/L (22-32); Chloride 104 mmol/L (98-107); Estimated Glomerular Filt Rate > 60.0 mL/min (>60); Glucose 120 mg/dL (70-100); HEMOLYSIS 23 (0-50); Potassium 4.7 mmol/L (3.4-5.1); Sodium 141 mmol/L (137-145); Total Protein 7.5 g/dL (6.3-8.2)
[2018-04-20 16:15] VITALS: BP 154/111; PULSE 66; RESP 19; O2SAT 95
[2018-04-20] MEDS: HYDROCODONE/ACET 5/325 TABLET 1 TAB PO (17:05)
--- NOTE | 2018-04-20 17:19 | ED_ITS ---
HPI - Male Genitourinary <AISSATOU Devi - Last Filed: 04/20/18 22:10> General Chief complaint: Urogenital-Male Stated complaint: sent by doctor for testicular Torsion Time Seen by Provider: 04/20/18 12:44 Source: patient Mode of arrival: ambulatory Limitations: no limitations History of Present Illness HPI Narrative: 47-year-old male with history of hypertension as a nonsmoker here for complaint of having pain into his left flank area and also into his left testicle for the last 2 weeks. He was sent here by his primary care provider who saw him today to rule out torsion to his left testicle. He had a CT of his lower back completed last week that does show some degenerative changes however no other findings were seen. He is currently treated for his pain with gabapentin and [place]. He denies any trauma to the area. He denies any urine changes. He does state he has a history of kidney stones. He denies any fevers or chills. Related Data Home Medications Medication Instructions Recorded Confirmed coenzyme Q10 [Co Q-10] 100 mg PO BEDTIME #0 06/03/17 04/20/18 hydrocodone-acetaminophen 1 tab PO Q6H PRN 04/20/18 04/20/18 simvastatin 20 mg PO BEDTIME 04/20/18 04/20/18 Previous Rx's Medication Instructions Recorded lisinopril 20 mg tablet 20 mg PO BID #180 tab 10/24/17 metformin 1,000 mg tablet 1,000 mg PO BIDCC #180 tab 12/09/17 meloxicam [Mobic] 7.5 mg PO DAILY PRN #20 tab 04/13/18 gabapentin 300 mg capsule 300 mg PO TID #30 cap 04/17/18 diazepam 5 mg tablet 5 mg PO BID #45 tab 04/20/18 levofloxacin [Levaquin] 500 mg PO DAILY 10 Days #10 tab 04/20/18 Allergies Allergy/AdvReac Type Severity Reaction Status Date / Time Penicillins [PENICILLINS] Allergy Intermediate CHILDHOOD Verified 04/20/18 11:27 gabapentin AdvReac Intermediate diplopia Verified 04/20/18 11:27 Review of Systems <AISSATOU Devi - Last Filed: 04/20/18 22:10> Constitutional Denies chills, Denies fever(s), Denies lethargy and Denies weakness Eyes Denies change in vision, Denies eye discharge, Denies irritation and Denies loss of vision Cardiovascular Denies chest pain, Denies irregular heart rhythm, Denies lightheadedness, Denies palpitations, Denies dyspnea, Denies dyspnea on exertion and Denies orthopnea Respiratory Denies cough, Denies dyspnea, Denies dyspnea on exertion and Denies wheezing Gastrointestinal Gastrointestinal: Denies abdominal pain, Denies change in bowel habits, Denies diarrhea, Denies nausea and Denies vomiting Genitourinary Comments: Left flank pain and left testicular pain Musculoskeletal Denies back pain, Denies muscle weakness, Denies numbness and Denies tingling Integumentary/Breasts Denies pruritus, Denies erythema, Denies rash and Denies wounds Neurologic Denies confusion, Denies loss of vision, Denies numbness, Denies tingling and Denies weakness Psychiatric Denies anxiety, Denies confusion, Denies depression, Denies homicidal ideation and Denies suicidal ideation Endocrine Denies palpitations Hematologic/Lymphatic Denies easy bruising Allergic/Immunologic Denies wheezing Exam <AISSATOU Devi - Last Filed: 04/20/18 22:10> Initial Vital Signs Initial Vital Signs: Vital Signs Temperature 98 F 04/20/18 12:25 Pulse Rate 92 H 04/20/18 12:25 Respiratory Rate 20 04/20/18 12:25 Blood Pressure 164/119 H 04/20/18 12:25 Pulse Oximetry 97 04/20/18 12:25 Const General: cooperative and well developed Nutritional Appearance: well nourished Orientation: alert, awake, oriented x3 and not confused [facility] Mouth: oral mucosae normal and moist mucous membranes Eyes General: appearance normal, both eyes and all related structures Eyelids: eyelids normal Conjunctivae: conjunctivae normal Sclera: sclerae normal Pupils: PERRL EOM: EOM intact bilaterally Resp Effort & Inspection: normal respiratory effort, able to speak in complete sentences, no respiratory distress and no use of accessory muscles Auscultation: clear to auscultation bilaterally, no rales, no rhonchi and no wheezes Cardio Rate: regular rate Rhythm: regular rhythm Heart Sounds: no click, no gallops, no murmurs and no rubs Pulses: normal peripheral pulses GI Inspection: non-distended Palpation: soft, no hepatosplenomegaly, No guarding, No pulsatile mass and No tender Auscultation: normal bowel sounds General: No CVA tenderness Back/Spine/Pelvis Other: Tenderness to the paraspinals of the lumbar spine. Skin General: no rashes or lesions noted, No jaundice and No petechiae Neuro General: alert, oriented x3, gait normal and no focal motor deficits Speech: speech normal <Rosaura Victor DO - Last Filed: 04/21/18 08:11> Initial Vital Signs Initial Vital Signs: Vital Signs Temperature 98 F 04/20/18 12:25 Pulse Rate 92 H 04/20/18 12:25 Respiratory Rate 20 04/20/18 12:25 Blood Pressure 164/119 H 04/20/18 12:25 Pulse Oximetry 97 04/20/18 12:25 Course <AISSATOU Devi - Last Filed: 04/20/18 22:10> Orders Ordered: Discontinued Medications Hydrocodone Bitart/Acetaminophen ([place] 5/325) 1 tab PO NOW ONE Stop: 04/20/18 17:00 Last Admin: 04/20/18 17:05 Dose: 1 tab Hydromorphone HCl (Dilaudid) 0.5 mg IV NOW ONE Stop: 04/20/18 13:16 Last Admin: 04/20/18 13:31 Dose: 0.5 mg Hydromorphone HCl (Dilaudid) 0.5 mg IV NOW ONE Stop: 04/20/18 14:12 Last Admin: 04/20/18 14:20 Dose: 0.5 mg Sodium Chloride (Normal Saline 0.9%) 1,000 mls @ 1,000 mls/hr IV BOLUS ONE Stop: 04/20/18 14:14 Last Infusion: 04/20/18 14:26 Dose: 0 mls/hr Admin: 04/20/18 13:32 Dose: 1,000 mls/hr Ketorolac Tromethamine (Toradol) 30 mg IV NOW ONE Stop: 04/20/18 13:16 Last Admin: 04/20/18 13:32 Dose: 30 mg Vital Signs - 8 hr 04/20/18 16:15 04/20/18 18:12 Pulse Rate 66 65 Respiratory Rate 19 18 Blood Pressure [Right Arm] 154/111 H 142/94 H Pulse Oximetry 95 96 <Rosaura Victor DO - Last Filed: 04/21/18 08:11> Orders Ordered: Discontinued Medications Hydrocodone Bitart/Acetaminophen ([place] 5/325) 1 tab PO NOW ONE Stop: 04/20/18 17:00 Last Admin: 04/20/18 17:05 Dose: 1 tab Hydromorphone HCl (Dilaudid) 0.5 mg IV NOW ONE Stop: 04/20/18 13:16 Last Admin: 04/20/18 13:31 Dose: 0.5 mg Hydromorphone HCl (Dilaudid) 0.5 mg IV NOW ONE Stop: 04/20/18 14:12 Last Admin: 04/20/18 14:20 Dose: 0.5 mg Sodium Chloride (Normal Saline 0.9%) 1,000 mls @ 1,000 mls/hr IV BOLUS ONE Stop: 04/20/18 14:14 Last Infusion: 04/20/18 14:26 Dose: 0 mls/hr Admin: 04/20/18 13:32 Dose: 1,000 mls/hr Ketorolac Tromethamine (Toradol) 30 mg IV NOW ONE Stop: 04/20/18 13:16 Last Admin: 04/20/18 13:32 Dose: 30 mg Vital Signs - 8 hr 04/20/18 16:15 04/20/18 18:12 Pulse Rate 66 65 Respiratory Rate 19 18 Blood Pressure [Right Arm] 154/111 H 142/94 H Pulse Oximetry 95 96 MDM - Male Genitourinary <AISSATOU Devi - Last Filed: 04/20/18 22:10> Lab Data Result diagrams: 04/20/18 13:35 04/20/18 13:35 Lab Results 04/20/18 04/20/18 04/20/18 Range/Units 13:35 13:35 14:17 WBC 6.1 (4.5-11.0) X10^3/uL RBC 5.15 (4.5-5.9) X10^6/uL Hgb 15.8 (13.5-17.5) g/dL Hct 45.2 (41-53) % MCV 87.9 (80-100) fL MCH 30.8 (26-34) PG MCHC 35.0 (30-36) % RDW 13.1 (11.6-14.8) % Plt Count 213 (150-400) X10^3/uL Neut % (Auto) 68.9 (50-75) % Lymph % (Auto) 21.2 L (25-40) % Howard % (Auto) 7.6 (3-14) % Eos % (Auto) 1.9 L (2-4) % Baso % (Auto) 0.4 (0-2) % Neut # (Auto) 4200 (4203-1301) /uL Sodium 141 (137-145) mmol/L Potassium 4.7 (3.4-5.1) mmol/L Chloride 104 (98-107) mmol/L Carbon Dioxide 23 (22-32) mmol/L BUN 19 (9-20) mg/dL Creatinine 0.70 (0.66-1.25) mg/dL Estimated GFR > 60.0 (>60) mL/min BUN/Creatinine Ratio 27.1 H (6-22) Glucose 120 H (70-100) mg/dL Calcium 9.6 (8.4-10.2) mg/dL Total Bilirubin 0.4 (0.2-1.3) mg/dL AST 40 (17-59) IU/L ALT 40 (21-72) IU/L Alkaline Phosphatase 46 (38-126) U/L Total Protein 7.5 (6.3-8.2) g/dL Albumin 4.5 (3.5-5.0) g/dL Globulin 3.0 (1.7-4.1) g/dL Albumin/Globulin Ratio 1.5 (1.0-2.8) Ur Chlamydia DNA (PCR) Not detected N gonorrhoeae DNA (PCR) Not detected Urine Dip Bedside Urine Glucose Negative Bedside Urine Bilirubin - Negative Bedside Urine Ketone - Negative Urine Specific [place] 1.030 Bedside Urine Occult Blood - Negative Bedside Urine pH 6.0 Bedside Urine Protein - Negative Bedside Urine Urobilinogen - Negative Bedside Urine Nitrite - Negative Bedside Urine Leukocytes - Negative Esterase Imaging Data Scrotal ultrasound : Radiologist's impression: [address] [address] Ultrasound Report Signed Patient: Sav Rush LMR#: [id number] : 1970Acct:[id number] Age/Sex: 47 / MDate of Service: 04/20/18 Loc: ED Accession Number: [id number] Procedure: US scrotum Ordering Provider: Nestor Hartman PROCEDURE: US SCROTUM INDICATIONS: Pain to the left testicle area TECHNIQUE: Real-time scanning was performed of the scrotum and testicles, with image documentation. Color and pulse Doppler interrogation was performed of both testicles. COMPARISON: None. FINDINGS: Right: Testicle is normal in size at 5.1 x 2.9 x 3.3 cm, and homogenous in echotexture. Epididymis is normal in overall size and morphology. No hydrocele or varicoceles. Overlying scrotal skin is normal in thickness. Left: Testicle is normal in size at 4.0 x 2.6 x 3.6 cm, and homogeneous in echotexture. Epididymis is normal in overall size and morphology. No hydrocele or varicoceles. Overlying scrotal skin is normal in thickness. Doppler: Color and pulse Doppler demonstrate normal and symmetric arterial flow in both testicles. IMPRESSION: 1. No acute abnormality. Intermittent torsion cannot be excluded. Dictated by: Eva Carr M.D. on 04/20/2018 at 14:28 Approved by: Eva Carr M.D. on 04/20/2018 at 15:06 Renal ultrasound : Radiologist's impression: Ultrasound Report Signed Patient: Sav Rush LMR#: [id number] : 1970Acct:[id number] Age/Sex: 47 / MDate of Service: 04/20/18 Loc: ED Accession Number: [id number] Procedure: US renal complete Ordering Provider: Nestor Hartman PROCEDURE: US RENAL COMPLETE INDICATIONS: Pain to the left flank area and left testicular area history TECHNIQUE: Real-time scanning was performed of the kidneys and bladder, with image documentation. COMPARISON: [facility], CT, CT KIDNEY URETER BLADDER (KUB), 04/02/2018, 13 :35. [facility], CT, CT LUMBAR SPINE WO CON, 04/13/2018, 8:48. FINDINGS: Kidneys: Kidneys are normal in size. Right kidney measures 12.9 cm long; left kidney measures 13.0 cm long. Right renal cortical thickness is 2.2 cm; left renal cortical thickness is 1.9 cm. Renal cortical echotexture is normal. No hydronephrosis. Within the right kidney, there are 8 and 4 mm foci of increased echogenicity within the lower pole. A 5 mm focus is noted in the upper pole. 5 mm focus is noted in the lower pole of the left kidney. Right upper pole calcification was present on 04/02/18. No suspicious solid mass lesions. Bladder: Pre-void bladder volume is zero mL. Miscellaneous: No free pelvic fluid. IMPRESSION: 1. Nonobstructing sub-centimeter bilateral renal calculi. Dictated by: Eva Carr M.D. on 04/20/2018 at 15:06 Approved by: Eva Carr M.D. on 04/20/2018 at 15:08 MDM Narrative Medical decision making narrative: CBC and Chem panel were obtained were unremarkable. Urinalysis was negative. Ultrasound of the renal area and also the scrotal area was negative for any acute findings. Will have patient continue taking currently prescribed pain management regimen as directed. GC chlamydia was obtained was negative. Will empirically treat for epididymitis with Levaquin. Discussed case with Dr. Marquez will follow up with patient later this week with consideration for MRI for further workup for his back pain. For any worsening symptoms return to the emergency room. <Rosaura Victor, DO - Last Filed: 04/21/18 08:11> Lab Data Lab Results 04/20/18 04/20/18 04/20/18 Range/Units 13:35 13:35 14:17 WBC 6.1 (4.5-11.0) X10^3/uL RBC 5.15 (4.5-5.9) X10^6/uL Hgb 15.8 (13.5-17.5) g/dL Hct 45.2 (41-53) % MCV 87.9 (80-100) fL MCH 30.8 (26-34) PG MCHC 35.0 (30-36) % RDW 13.1 (11.6-14.8) % Plt Count 213 (150-400) X10^3/uL Neut % (Auto) 68.9 (50-75) % Lymph % (Auto) 21.2 L (25-40) % Howard % (Auto) 7.6 (3-14) % Eos % (Auto) 1.9 L (2-4) % Baso % (Auto) 0.4 (0-2) % Neut # (Auto) 4200 (1505-0463) /uL Sodium 141 (137-145) mmol/L Potassium 4.7 (3.4-5.1) mmol/L Chloride 104 (98-107) mmol/L Carbon Dioxide 23 (22-32) mmol/L BUN 19 (9-20) mg/dL Creatinine 0.70 (0.66-1.25) mg/dL Estimated GFR > 60.0 (>60) mL/min BUN/Creatinine Ratio 27.1 H (6-22) Glucose 120 H (70-100) mg/dL Calcium 9.6 (8.4-10.2) mg/dL Total Bilirubin 0.4 (0.2-1.3) mg/dL AST 40 (17-59) IU/L ALT 40 (21-72) IU/L Alkaline Phosphatase 46 (38-126) U/L Total Protein 7.5 (6.3-8.2) g/dL Albumin 4.5 (3.5-5.0) g/dL Globulin 3.0 (1.7-4.1) g/dL Albumin/Globulin Ratio 1.5 (1.0-2.8) Ur Chlamydia DNA (PCR) Not detected N gonorrhoeae DNA (PCR) Not detected Urine Dip Bedside Urine Glucose Negative Bedside Urine Bilirubin - Negative Bedside Urine Ketone - Negative Urine Specific [place] 1.030 Bedside Urine Occult Blood - Negative Bedside Urine pH 6.0 Bedside Urine Protein - Negative Bedside Urine Urobilinogen - Negative Bedside Urine Nitrite - Negative Bedside Urine Leukocytes - Negative Esterase Discharge Plan Departure Patient Disposition: Home Clinical Impression: Low back pain Discharge Date/Time: 04/20/18 18:21 Interventions: ED Discharge Assessment Last Done: 04/20/18 18:20 Instructions: DI for Low Back Pain Activity Restrictions/Additional Instructions: Ultrasound of the renal area shows some stones in the kidneys that are not actually passing however no other acute findings. Ultrasound of the scrotal area was negative for any acute findings. Laboratory results today were unremarkable. Will empirically treat for epididymitis and infection of the epididymis with an antibiotic use as directed. Use currently prescribed pain management regimen as directed by your primary care provider. Follow up with her primary care provider in the next few days for re-evaluation. For any worsening symptoms return to the emergency room. Prescriptions: New levofloxacin [Levaquin] 500 mg tablet 500 mg PO DAILY 10 Days Qty: 10 RF: 0 No Action coenzyme Q10 [Co Q-10] 100 MG capsule 100 mg PO BEDTIME Qty: 0 RF: 0 lisinopril [Prinivil] 20 mg tablet 20 mg PO BID Qty: 180 RF: 1 metformin 1,000 mg tablet 1,000 mg PO BIDCC Qty: 180 RF: 1 gabapentin 300 mg capsule 300 mg PO TID Qty: 30 RF: 2 diazepam 5 mg tablet 5 mg PO BID Qty: 45 RF: 0 hydrocodone-acetaminophen 7.5-325 mg Tablet 1 tab PO Q6H PRN (Reason: pain) RF: 0 simvastatin 20 MG tablet 20 mg PO BEDTIME RF: 0 meloxicam [Mobic] 7.5 mg tablet 7.5 mg PO DAILY PRN (Reason: pain) Qty: 20 RF: 0 Referrals: Ramy Marquez MD [Primary Care Provider] - <Rosaura Victor DO - Last Filed: 04/21/18 08:11> Cosign ED Attending Cosignature Attestation: I was immediately available in the department for consultation, case was discussed. This documentation has been reviewed and I agree with assessment and plan. Supervised by Rosaura Victor DO
[2018-04-20 17:33] LABS: Urine N gonorrhoeae NOT DETECTED
[2018-04-20 17:54] LABS: Urine Chlamydia NOT DETECTED
[2018-04-20 18:12] VITALS: BP 142/94; PULSE 65; RESP 18; O2SAT 96
== END 2018-04-20 18:21 | disposition home or self-care (01) ==
PROVIDERS: Emergency Provider Nurse Practitioner Family; PCP Student in an Organized Health Care Education/Training Program
DX: M54.5 Low back pain (principal)
CPT/HCPCS: 36591; 76770; 76870; 80053; 81003; 85025; 87491; 87591; 96361; 96374; 96375; 96376; 99283; 99284; J1170; J1885

== ENCOUNTER → 2018-04-23 16:46 | Outpatient (CLI) | payer OTHER, SELFPAY ==
[2018-04-23 17:35] LABS: Add Manual Diff / Slide Review NO; Basophils Percent Auto 0.5 % (0-2); Eosinophils Percent Auto 1.8 % (2-4); Hematocrit 51.1 % (41-53); Hemoglobin 17.4 g/dL (13.5-17.5); Lymphocytes Percent Auto 29.8 % (25-40); Mean Corpuscular HGB Conc 34.1 % (30-36); Mean Corpuscular Hemoglobin 30.1 PG (26-34); Mean Corpuscular Volume 88.3 fL (80-100); Monocytes Percent Auto 9.1 % (3-14); Neutrophils Absolute Auto 4400 /uL (3000-5900); Neutrophils Percent Auto 58.8 % (50-75); Platelet Count 283 X10^3/uL (150-400); Red Blood Cell Count 5.79 X10^6/uL (4.5-5.9); Red Cell Distribution Width 13.2 % (11.6-14.8); White Blood Cell Count 7.5 X10^3/uL (4.5-11.0)
[2018-04-23 17:43] LABS: Hemoglobin A1C% w Est Avg Glu 6.5 % (4.0-6.0)
[2018-04-23 17:51] LABS: Cholesterol 196 mg/dL (140-199); HDL Cholesterol 45 mg/dL (40-60); Triglycerides 497 mg/dL (35-150)
[2018-04-23 18:09] LABS: Vitamin D 25 Hydroxy (D3) 22.8 ng/mL (30.0-100.0)
== END ==
PROVIDERS: PCP Student in an Organized Health Care Education/Training Program; Visit Provider Student in an Organized Health Care Education/Training Program
DX: E11.9 Type 2 diabetes mellitus without complications (principal); E78.00 Pure hypercholesterolemia, unspecified; N45.1 Epididymitis; E55.9 Vitamin D deficiency, unspecified
CPT/HCPCS: 36415; 80061; 82306; 83036; 85025

== ENCOUNTER → 2018-04-28 17:00 | Outpatient (CLI) | payer OTHER, SELFPAY ==
--- NOTE | 2018-04-28 17:06 | DI.MRI.S_ITS ---
PROCEDURE: MR LUMBAR SPINE WO CON INDICATIONS: Low back pain TECHNIQUE: Noncontrast sagittal T1 spin echo and T2 fast echo, sagittal STIR, axial T1 and T2 fast spin echo through the lumbar spine. In cases with scoliosis, additional coronal T2 fast spin echo may be performed. COMPARISON: None. FINDINGS: Image quality: Excellent. Alignment and Curvature: There is normal bony alignment. Bone Marrow: Marrow is of normal overall signal. No acute vertebral body compression fractures. Spinal Cord: Conus medullaris terminates at the T12 level. Visualized cord demonstrates normal signal and size. Paraspinous Soft Tissues: No paravertebral masses. L1-L2: Normal appearance. L2-L3: Left paracentral disc bulge is seen, no significant canal stenosis or neuroforamina narrowing. L3-L4: Normal appearance. L4-L5: There is broad-based disc bulge and bilateral facet arthrosis with mild central canal stenosis and mild to moderate bilateral neuroforamina narrowing. Bulging disc is seen contacting exiting left L4 nerve root. L5-S1: There is mild diffuse disc bulge and bilateral facet arthrosis with no significant canal stenosis or neuroforamina narrowing. IMPRESSION: 1. Broad-based disc bulge and bilateral facet arthrosis at L4-5 level causing mild central canal stenosis and mild to moderate bilateral neuroforamina narrowing with bulging disc contacting the exiting left L4 nerve root at this level. 2. Left paracentral disc bulge at L2-3 level and milder diffuse disc bulge and bilateral facet arthrosis at L5-S1 level with no significant canal stenosis or neuroforamina narrowing. Dictated by: Manny Gaspar M.D. on 04/29/2018 at 10:41 Approved by: Manny Gaspar M.D. on 04/29/2018 at 11:14
== END ==
PROVIDERS: PCP Student in an Organized Health Care Education/Training Program; Visit Provider Student in an Organized Health Care Education/Training Program
DX: M51.26 Other intervertebral disc displacement, lumbar region (principal); M51.27 Other intervertebral disc displacement, lumbosacral region; M47.816 Spondylosis without myelopathy or radiculopathy, lumbar region; M47.817 Spondylosis without myelopathy or radiculopathy, lumbosacral region; M48.061 Spinal stenosis, lumbar region without neurogenic claudication
CPT/HCPCS: 72148

== ENCOUNTER → 2018-05-16 12:47 | Outpatient (CLI) | payer OTHER, SELFPAY ==
[2018-05-16 13:03] LABS: Bacteria Urine None Seen; RBC Urine None Seen (0-5/HPF)
[2018-05-16 13:24] LABS: Appearance Urine UA CLEAR; Bilirubin Urine UA NEGATIVE (NEGATIVE); Color Urine UA YELLOW; Glucose Urine UA NEGATIVE (Negative); Ketones Urine UA TRACE (NEGATIVE); Leukocyte Esterase Urine UA NEGATIVE (NEGATIVE); Nitrite Urine UA NEGATIVE (Negative); Occult Blood Urine UA NEGATIVE (Negative); Protein Urine UA NEGATIVE (Negative); Specific Gravity Urine UA >=1.030 (1.000-1.035); Urobilinogen Urine UA 0.2 E.U./dL (0.2)
[2018-05-16 13:37] LABS: Hematocrit 44.8 % (41-53); Hemoglobin 15.5 g/dL (13.5-17.5); Mean Corpuscular HGB Conc 34.6 % (30-36); Mean Corpuscular Hemoglobin 30.3 PG (26-34); Mean Corpuscular Volume 87.6 fL (80-100); Platelet Count 162 X10^3/uL (150-400); Red Blood Cell Count 5.12 X10^6/uL (4.5-5.9); Red Cell Distribution Width 13.3 % (11.6-14.8); White Blood Cell Count 4.9 X10^3/uL (4.5-11.0)
[2018-05-16 13:47] LABS: BUN Creatinine Ratio 17.5 (6-22); Blood Urea Nitrogen 14 mg/dL (9-20); Calcium 9.6 mg/dL (8.4-10.2); Carbon Dioxide 24 mmol/L (22-32); Chloride 106 mmol/L (98-107); Estimated Glomerular Filt Rate > 60.0 mL/min (>60); Glucose 129 mg/dL (70-100); HEMOLYSIS < 15 (0-50); Mucus Urine 2+ (Negative); Potassium 4.4 mmol/L (3.4-5.1); Sodium 141 mmol/L (137-145); WBC Urine 5-10/HPF (0-5/HPF)
== END ==
PROVIDERS: PCP Student in an Organized Health Care Education/Training Program; Visit Provider Orthopaedic Surgery Orthopaedic Surgery of the Spine
DX: N39.0 Urinary tract infection, site not specified (principal); Z01.818 Encounter for other preprocedural examination
CPT/HCPCS: 36415; 80048; 81001; 85027; 87086

== ENCOUNTER → 2018-05-21 11:02 | Outpatient (CLI) | payer OTHER, SELFPAY ==
--- NOTE | 2018-05-21 11:06 | DI.RAD.S_ITS ---
PROCEDURE: XR CHEST 2V INDICATIONS: Sternal bone pain TECHNIQUE: 2 views of the chest were acquired. COMPARISON: [facility], , CHEST 2 VIEW, 07/26/2010, 19:00. FINDINGS: Surgical changes and devices: None. Lungs and pleura: No pleural effusions or pneumothorax. . Low lung volumes. No acute consolidation. Scattered subsegmental atelectasis and/or scarring Mediastinum: Mediastinal contours are normal. Heart size is normal. Bones and chest wall: No suspicious bony abnormalities. Soft tissues appear unremarkable. IMPRESSION: No acute consolidation. Scattered subsegmental atelectasis and/or scarring Dictated by: Raúl Santos M.D. on 05/21/2018 at 15:06 Approved by: Raúl Santos M.D. on 05/21/2018 at 15:08
== END ==
PROVIDERS: PCP Student in an Organized Health Care Education/Training Program; Visit Provider Student in an Organized Health Care Education/Training Program
DX: R07.89 Other chest pain (principal)
CPT/HCPCS: 71046

== ENCOUNTER 2018-05-25 06:14 | Inpatient (IN) | payer OTHER, SELFPAY ==
[2018-05-22 09:58] VITALS: BMI 28.5
[2018-05-25] VITALS (22 sets, daily range): BP systolic 99–150; BP diastolic 57–91; PULSE 68–90; RESP 12–28; TEMP 36.2–37.3; O2SAT 88–95; BMI 28.5
--- NOTE | 2018-05-25 | DI.RAD.S_ITS ---
PROCEDURE: XR LUMBAR SPINE 2-3V INDICATIONS: L2-3 TLIF TECHNIQUE: 2 intraoperative fluoroscopic views of the lumbar spine were acquired. COMPARISON: None. FINDINGS: Intraoperative fluoroscopic images of lumbar spine shows transpedicular fusion of 2 lumbar spine vertebral bodies with intervertebral spacer placement. Exact level cannot be definitively determined based on the images given. IMPRESSION: Pleural guidance was provided intraoperatively for fusion of 2 lumbar spine vertebral bodies. Dictated by: Manny Gaspar M.D. on 05/25/2018 at 11:38 Approved by: Manny Gaspar M.D. on 05/25/2018 at 11:45
[2018-05-25] MEDS: LACTATED RINGERS 1,000 ML 42 ML IV ×2 (07:10→09:54)
[2018-05-25] MEDS: CLINDAMYCIN 900 MG/50 ML PIGGYBACK 50 MG IV ×3 (08:06→23:41)
[2018-05-25] MEDS: fentaNYL 100 MCG/2 ML INJ 50 MCG IV (08:06)
--- NOTE | 2018-05-25 08:42 | SUR.OPER ---
Prone on spine table, head in foam head support, padded chest and pelvic supports, gel pad at knees, lower legs supported by pillows; nipples, genitalia and toes free of pressure, arms secured on foam padded arm boards at <90 degrees abduction. Tape over blanket at thigh secured to table.
[2018-05-25] MEDS: BUPIVACAINE 0.25% W/ EPI VIAL 30 ML INJ (08:49)
[2018-05-25] MEDS: BUPIVACAINE LIPOSOME 266 MG/20 ML VIAL INJ (08:51)
--- NOTE | 2018-05-25 10:39 | PM.PREOP ---
Pre-operative Note Interval Note History & Physical reviewed/Exam performed by Physician: Yes Changes to H&P: No
--- NOTE | 2018-05-25 10:41 | P.OP_ITS ---
Operative Date/Time/Diagnoses Date of procedure: 05/25/18 Time of procedure: 08:12 Pre-op diagnosis: 1. L2-3 far lateral disc herniation 2. Lumbar spinal stenosis Post-op diagnosis: same Procedure & Clinicians Procedure: 1. L2-3 Postero-lateral and posterior interbody fusion 2. L2-3 interbody cage placement. 3. L2-3 decompressive laminectomy with bilateral facetecomies 4. L2-3 Posterior non-segmental instrumentation 5. [place] of bone marrow from iliac crest 6. Utilization of microsurgical technique and operating microscope Same procedure as scheduled: Yes Indications: Patient has been having chronic back pain and worsening lumbar radiculopathy. Patient failed multiple conservative management with worsening pain weakness and numbness in her lower extremity. Patient has been having difficulty performing activity of daily living. After discussing risks benefits of treatment options, patient elected proceed with surgery. Surgeon: Abiola Patel Ordained Minister: Germaine Almeida Click Yes if Unassisted: No Anesthesia Type: General Operative Notes Closure Type: primary Specimen(s): none sent Implants & Drains: Globus revolve screws, Rise cage Estimated Blood Loss (mL): 50 Blood products transfused: none Procedure in detail: Patient was seen in the preoperative area. Risks and benefits of the surgery was discussed with the patient. Informed consent was obtained from the patient and placed in the chart. Surgical site was marked. Patient was taken to the operative room. General anesthesia was administered. Prophylactic antibiotic was given to the patient less than 30 min before the incision was made. Patient was placed into a prone position on the [place] table. Patient's back was then prepped and draped in the sterile fashion. Time- out was performed at this time. Using AP and lateral C-arm imaging the interval between L2-3 was identified and marked on patient's back. A 2 inch incision 2 in from midline was made on the left side first. The fascia was incised in line with skin incision. Globus MARS retractors was placed inside the incision and docked onto the L2 lamina. Using microsurgical technique and operating microscope, a L2 laminectomy and L2- 3 facetectomy was performed using a Kerrison rongeur. The disc space at L2-3 was identified. And a total diskectomy was performed at L2-3 level. There was a large piece of extruded disc in the L2-3 neural foramen on the left side, which was entirely removed during the process of diskectomy. The endplates were decorticated using a rasp and shaver. The total diskectomy and decortication was performed at L2-3 level in order to to accomplish a L2-3 fusion. The local bone from the laminectomy and facetectomy was saved for local bone grafting. After the total diskectomy and decortication was completed , Globus viacell bone graft material was combined with local bone that was harvested earlier. At this time, a separate skin is incision was made over the iliac crest. A Jamshidi needle was inserted into the iliac crest through a separate skin incision. 5 cc of bone marrow aspiration was obtained through the separate skin incision using a Jamshidi needle from the iliac crest. The bone marrow aspiration was combined with local bone and the via cell bone grafting material. The bone grafting material was placed into the L4-5 interbody space along with a expandable cage. The cage was expanded to its maximum height using the torque limiting screwdriver. At this time a mirror image incision was made on the right side. The fascia was incised in line with the skin incision. Globus MARS retractor was inserted and docked onto the L2-3 posterolateral gutter. Using the power drill, posterior- lateral decortication was performed at L2-3 level until bleeding cortical bone was identified. The remaining bone grafting material was placed into the L2-3 posterior lateral gutter he order to accomplish posterolateral fusion at the L2- 3 level. Using the double C-arm technique, pedicle screws were placed into the L2-3 pedicles bilaterally. This was done by placing the Jamshidi needle into the pedicles, then placing the guidewires over the Jamshidi needle, and finally placing the cannulated screws over the guidewires bilaterally. After the pedicle screws were placed, 2 titanium rods was locked into the heads of the pedicle screws using locking caps and torque limiting screwdriver. After all the hardware was placed, and confirmed with AP and lateral C-arm imaging, the wound was then irrigated with sterile normal saline and packed with Ray-Cindy gauze for 3 min to accomplish hemostasis. After the gauze was removed the deep fascia was closed with #1 Vicryl suture. The subcutaneous layer was closed with 2-0 Vicryl. The skin was closed with skin joel. Patient tolerated the procedure well. There were no complications. Complications: none Condition: stable Disposition: PACU Plan for aftercare: Admit to inpatient hospital
--- NOTE | 2018-05-25 11:02 | SUR.PHASEI ---
Dilaudud 0.5mg IVP given by DR. Pam fontana.
[2018-05-25] MEDS: HYDROMORPHONE 2 MG INJ 0.5 MG IV ×2 (11:06→11:12)
[2018-05-25] MEDS: LORazepam 2 MG/ML SYRINGE 1 MG IV (11:16)
--- NOTE | 2018-05-25 11:20 | SUR.PHASEI ---
Becoming more somnolent now after three doses of Dilaudid and one of Lorazepam. Despite somnolent state with slurred speech, pain is still 10/10. FLacc scale as this is written is zero. Have weaned O2 to nasal cannula with adequate sats.
--- NOTE | 2018-05-25 11:47 | SUR.PHASEI ---
Due to concerns of sufficient oxygenation, especially in the light of analgesics rec'd in PACU, length of stay in PACU a bit longer despite stable VS. Has been calmer since reci'ng meds after initially being more restless verbally and physically.
[2018-05-25] MEDS: SODIUM CHLORIDE 0.9% 1,000 ML 100 ML IV ×2 (12:32→23:40)
[2018-05-25] MEDS: HYDROMORPHONE 1 MG INJ 0.5 MG IV (12:39)
[2018-05-25] MEDS: hydrOXYzine pamoate 25 MG CAPSULE PO (14:42)
[2018-05-25] MEDS: GABAPENTIN 600 MG TABLET PO ×2 (14:42→20:58)
[2018-05-25] MEDS: HYDROMORPHONE 0.5 MG INJ IV (14:48)
--- NOTE | 2018-05-25 16:14 | PC.NURSE ---
day shift summary : patient was received from PACU to 220. VSS, on oxygen upon arrival but weaned to room air with spo2 93-95%. Dressing to back CDI. Patient reports pain to back with spasms with only minor relief after pain medication (see MAR). Patient was attempting to urinate with urinal multiple times, then complained of increased discomfort to kidneys and bladder with strong urge to pee but unable to. Bladder scan showed greater than 600. Order obtained from Dr. Patel for straight cath x 1, with 1400 cc clear yellow urine drained. Patient reports feeling much better after that. Patient back in bed with call light within reach, evening shift to assume care and continue with plan of care.
[2018-05-25] MEDS: OXYCODONE IR 5 MG TABLET 10 MG PO ×3 (16:16→22:12)
[2018-05-25] MEDS: METFORMIN HCL 500 MG TABLET 1000 MG PO (17:54)
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
[2018-05-25] MEDS: SENNOSIDES 8.6 MG TABLET 17.2 MG PO (20:57)
[2018-05-25] MEDS: SIMVASTATIN 40 MG TABLET PO (20:58)
[2018-05-25] MEDS: LISINOPRIL 20 MG TABLET PO (20:58)
[2018-05-25] MEDS: DOCUSATE 100 MG CAPSULE PO (20:58)
[2018-05-25] MEDS: diazePAM 5 MG TABLET PO (20:59)
[2018-05-26] VITALS (7 sets, daily range): BP systolic 124–139; BP diastolic 68–88; PULSE 62–100; RESP 15–18; TEMP 36.5–36.8; O2SAT 93–96
--- NOTE | 2018-05-26 01:32 | PC.NURSE ---
Screwmaker Automatic Note: 0010: Awakened gently by touching feet and calling his name. Pt oriented X3. Vital signs stable. IV in place in rt forearm with NS infusing at 100cc/hr. Pt log-rolling well. Dressing to lower back is cdi.
[2018-05-26] MEDS: OXYCODONE IR 5 MG TABLET 10 MG PO (01:47)
[2018-05-26] MEDS: HYDROMORPHONE 0.5 MG INJ IV ×2 (04:53→11:25)
[2018-05-26 05:56] LABS: Hematocrit 40.4 % (41-53); Hemoglobin 13.8 g/dL (13.5-17.5)
--- NOTE | 2018-05-26 07:48 | PM.PNPO.1 ---
Subjective Date Patient Seen: 05/26/18 Time Patient Seen: 07:30 Interval history: Patient is seen bedside status post L2-[address] Patel postop day 1. Patient is doing well, he did have to be straight cathed overnight however appears to be urinating now. His pain is elevated and he is complaining of intractable hiccups. He is able to roll with assistance. Has not been up with physical therapy yet. Exam Vital Signs (past 8 hours): - 05/26/18 02:15 05/26/18 05:19 Temperature 98.2 F 98.0 F Pulse Rate 91 H 78 Respiratory Rate 15 16 Blood Pressure 125/77 131/80 Pulse Oximetry 95 96 Oxygen Delivery Method Nasal Cannula Oxygen Flow Rate 2 Narrative Exam Narrative: Well-developed well-nourished no acute distress. Alert and oriented x3. Lumbar spine dressing is clean dry and intact no focal deficits noted bilateral lower extremities. Calves are soft and compressible. Objective Labs Result Diagrams: 05/26/18 05:33 Labs: Laboratory Results - last 24 hr 05/26/18 05:33 Hgb 13.8 Hct 40.4 L Assessment & Plan Post-op Postoperative Procedures Operation Date: 05/25/18 07:45 Actual Procedures Side Surgeon p L2-3 TLIF Abiola Patel MD 1. Patient is postop day 1. Status post above procedure. Up with PT, increase oxycodone. Add Haldol as needed for hiccups. Probable discharge home tomorrow. Quality VTE Deep Vein Thrombosis/Pulmonary Embolism Present on Admission: No
[2018-05-26] MEDS: METFORMIN HCL 500 MG TABLET 1000 MG PO ×2 (08:40→17:03)
[2018-05-26] MEDS: OXYCODONE IR 5 MG TABLET 15 MG PO (08:40)
[2018-05-26] MEDS: GABAPENTIN 600 MG TABLET PO ×3 (08:40→21:41)
[2018-05-26] MEDS: diazePAM 5 MG TABLET PO ×2 (08:40→21:40)
[2018-05-26] MEDS: DOCUSATE 100 MG CAPSULE PO ×2 (08:41→21:41)
[2018-05-26] MEDS: LISINOPRIL 20 MG TABLET PO ×2 (08:41→21:41)
[2018-05-26] MEDS: HALOPERIDOL 1 MG TABLET 0.5 MG PO (08:41)
[2018-05-26] MEDS: hydrOXYzine pamoate 25 MG CAPSULE PO ×3 (09:44→23:54)
--- NOTE | 2018-05-26 11:30 | PT.IPTN ---
Current Diagnoses Spinal stenosis, lumbar region without neurogenic claudication (05/25/18) Intervertebral disc disorders with radiculopathy, lumbar region (05/25/18) Surgery Performed Operation Date: 05/25/18 07:45 Actual Procedures p L2-3 TLIF - Abiola Patel MD Physical Therapy Treatment Note M2 PT-IP Current Condition Start: 05/25/18 18:14 Freq: NEEDED Status: Active Protocol: Document 05/25/18 16:20 (Rec: 05/25/18 19:02 [email or web address]) Physical Therapy Current Condition Current Condition Evaluation Date 05/25/18 Treatment Diagnosis L2/L2 TLIF, difficulty in walking Onset Date 05/25/18 Precautions Lumbar Precautions Log Roll No Twisting Limit Bending Lifting Restriction of 10 lbs Gait Belt above Incisional Area Weight Bearing Status Weight Bearing Status Weight Bear as Tolerated M3 PT-IP Subjective Start: 05/25/18 18:14 Freq: NEEDED Status: Active Protocol: Document 05/26/18 11:30 AB (Rec: 05/26/18 12:42 AB [id number]) Subjective Physical Therapy Visit Type Type Treatment Note Visit Start Time 11:30 Visit Stop Time 12:14 Total Visit Minutes 44 Number of MARKETING CONTENT SPECIALIST Visits 0 Physical Therapy Visit Comments Patient Comments initially refusing due to pain but requested to use the toilet Therapy Pain Assessment Pain When Pain Assessed At Rest Pain Present Pain Present Pain Reported Location Lower Back Intensity 8 Scale Used Numeric (1 - 10) Description Tightness Pain Management Techniques Re-positioning Timing of Activity with Medications M4 PT-IP Mobility and Gait Start: 05/25/18 18:14 Freq: NEEDED Status: Active Protocol: Document 05/26/18 11:30 AB (Rec: 05/26/18 12:42 AB [id number]) PT-Bed Mobility Assessment Rolling Type of Rolling Log Rolling Level of Assist Minimal Assistance Supine to Sit Supine to Sit Maximum Assistance 1 Person Assistance Scooting Scooting to Edge of Bed Standby Assistance PT-Transfer Assessment Sit to and From Stand Sit to and from Stand Moderate Assistance Maximum Assistance 1 Person Assistance Use of Upper Extremities Equipment Transfer Assistive Device Gait Belt Front Wheeled Walker Orthotic/Prosthetic Devices or Brace: No Transfers Transfer Destination Toilet Transfer Technique pt ambulated to the toilet using FWW Transfer Ability Level of Assist Minimal Assistance 1 Person Assistance Use of Upper Extremities Comments Mobility Comments Pt completed sit to stand from EOB mod to max A and max cues and was able to ambulated to the toilet using FWW min A. presents with slow melissa and increase UE support on FWW for standing. Pt was able to maintain standing using FWW for support SBA while completing toileting. Gait Assessment Gait Gait Assistance Required: Minimum Assistance Distance (Feet) 100 Able to Maintain Weight Bearing Status Yes During Gait Assistive Devices Assistive Device Gait Belt Front Wheeled Walker Orthotic/Prosthetic Devices or Brace: No Gait Deviations General Gait Pattern Decreased Stride Length Decreased Feet Clearance Narrow Based Gait Factors Limiting Gait Function Factors Limiting Gait Function Decreased Activity Tolerance Decreased Strength Limited Range of Motion Pain Poor Balance Poor Safety Awareness Comments Gait Comments pt ambulated in hallway using FWW ~ 100 ft min A and cues. presents with slow melissa and increase use of UE on FWW for support. M5 PT-IP Objective Assessments Start: 05/25/18 18:14 Freq: NEEDED Status: Active Protocol: Document 05/25/18 16:20 (Rec: 05/25/18 19:02 [email or web address]) Orientation Orientation/Cognition Level of Alertness Alert Orientation Name Age Birthday Month Date Year Day of Week Place Situation Language Function Ability No Deficits Noted Safety Awareness Understands Safety Issues Memory Description No Deficits Noted Gross Range of Motion Upper Extremity ROM Assessment Within Functional Limits Lower Extremity ROM Assessment Within Functional Limits Strength Upper Extremity Strength Assessment Within Functional Limits Lower Extremity Strength Assessment Within Functional Limits Coordination Assessment Gross Coordination Gross Coordination WNL Sensation Assessment Sensation Gross Sensation WNL M6 PT-IP Treatment Start: 05/25/18 18:14 Freq: NEEDED Status: Active Protocol: Document 05/26/18 11:30 AB (Rec: 05/26/18 12:42 AB [id number]) Physical Therapy Treatment Education Education Provided Precautions Safety M7 PT-IP Assessment and Plan Start: 05/25/18 18:14 Freq: NEEDED Status: Active Protocol: Document 05/26/18 11:30 AB (Rec: 05/26/18 12:42 AB [id number]) PT Summary Assessment and Plan Potential Rehabilitation Potential Fair Summary Impairments Pain ROM Strength Balance Coordination Sensation Tone Cognition Bed Mobility Transfers Gait Activity Tolerance Progress Towards Goals Slow Progress due to Pain Slow Progress due to Activity Tolerance Assessment Summary pt requiring one person assist with mobility and plans to go home with family to assist him. d/c plan depending on progress and level of assistance upon d/c. caregiver training will be conducted when appropriate. will also need to complete stair climbing. pt has 2 steps to enter without rails but will stay on main level of the house. stated that family has placed a bed on main level of the house with bathroom and kitchen closeby. Goals Bed Mobility Goal Independent Transfer Goal Independent Gait Goal Independent Gait Distance 100 Other Goals 2 steps without rail CGA Days to Meet Goals 5 Frequency of Treatment Frequency Of Treatment Twice a Day Treatment Plan Other Recommendations and Next Treatment bed mobility, ambulation, Focus caregiver training Recommendations To Nursing Amount of Assist Needed 1 Person Assist Discharge Recommendations PT Discharge Recommendations Home with 24/7 Assist SNF Rehab Other Discharge Recommendations SNF vs home with 24/7 assist and possibly homehealth services Equipment Needed for Home Before FWW Discharge
--- NOTE | 2018-05-26 13:05 | PT.IPTN ---
Current Diagnoses Spinal stenosis, lumbar region without neurogenic claudication (05/25/18) Intervertebral disc disorders with radiculopathy, lumbar region (05/25/18) Surgery Performed Operation Date: 05/25/18 07:45 Actual Procedures p L2-3 TLIF - Abiola Patel MD Physical Therapy Treatment Note M2 PT-IP Current Condition Start: 05/25/18 18:14 Freq: NEEDED Status: Active Protocol: Document 05/25/18 16:20 (Rec: 05/25/18 19:02 [email or web address]) Physical Therapy Current Condition Current Condition Evaluation Date 05/25/18 Treatment Diagnosis L2/L2 TLIF, difficulty in walking Onset Date 05/25/18 Precautions Lumbar Precautions Log Roll No Twisting Limit Bending Lifting Restriction of 10 lbs Gait Belt above Incisional Area Weight Bearing Status Weight Bearing Status Weight Bear as Tolerated M3 PT-IP Subjective Start: 05/25/18 18:14 Freq: NEEDED Status: Active Protocol: Document 05/26/18 13:05 AB (Rec: 05/26/18 16:09 AB [id number]) Subjective Physical Therapy Visit Type Type Treatment Note Visit Start Time 13:05 Visit Stop Time 13:47 Total Visit Minutes 42 Number of BRUSH FABRICATION SUPERVISOR Visits 0 Physical Therapy Visit Comments Patient Comments pt agreeable to do PT Therapy Pain Assessment Pain When Pain Assessed At Rest Pain Present Pain Present Pain Reported Location Lower Back Intensity 7 Scale Used Numeric (1 - 10) Pain Behaviors Guarding Pain Management Techniques Re-positioning Timing of Activity with Medications M4 PT-IP Mobility and Gait Start: 05/25/18 18:14 Freq: NEEDED Status: Active Protocol: Document 05/26/18 13:05 AB (Rec: 05/26/18 16:09 AB [id number]) PT-Bed Mobility Assessment Rolling Type of Rolling Log Rolling Level of Assist Moderate Assistance 1 Person Assistance Sit to Supine Sit to Supine Moderate Assistance 1 Person Assistance PT-Transfer Assessment Sit to and From Stand Sit to and from Stand Moderate Assistance 1 Person Assistance Use of Upper Extremities Equipment Transfer Assistive Device Gait Belt Front Wheeled Walker Transfers Transfer Destination Toilet Transfer Technique pt ambulated to the toilet using FWW Transfer Ability Level of Assist Contact Guard Assistance Comments Mobility Comments pt requested to use the toilet after ambulation in hallway. pt ambulated to the toilet using FWW CGA. pt was able to maintain standing balance/rashad using FWW for support SBA while completing toileting. Gait Assessment Gait Gait Assistance Required: Contact Guard Assist Distance (Feet) 60 Able to Maintain Weight Bearing Status Yes During Gait Assistive Devices Assistive Device Gait Belt Front Wheeled Walker Orthotic/Prosthetic Devices or Brace: No Gait Deviations General Gait Pattern Decreased Stride Length Decreased Feet Clearance Factors Limiting Gait Function Factors Limiting Gait Function Decreased Activity Tolerance Decreased Strength Limited Range of Motion Pain Poor Balance Comments Gait Comments c/o nausea during standing but stated that it decreased during ambulation. M5 PT-IP Objective Assessments Start: 05/25/18 18:14 Freq: NEEDED Status: Active Protocol: Document 05/25/18 16:20 HH (Rec: 05/25/18 19:02 HH [email or web address]) Orientation Orientation/Cognition Level of Alertness Alert Orientation Name Age Birthday Month Date Year Day of Week Place Situation Language Function Ability No Deficits Noted Safety Awareness Understands Safety Issues Memory Description No Deficits Noted Gross Range of Motion Upper Extremity ROM Assessment Within Functional Limits Lower Extremity ROM Assessment Within Functional Limits Strength Upper Extremity Strength Assessment Within Functional Limits Lower Extremity Strength Assessment Within Functional Limits Coordination Assessment Gross Coordination Gross Coordination WNL Sensation Assessment Sensation Gross Sensation WNL M6 PT-IP Treatment Start: 05/25/18 18:14 Freq: NEEDED Status: Active Protocol: Document 05/26/18 13:05 AB (Rec: 05/26/18 16:09 AB [id number]) Physical Therapy Treatment Education Education Provided Precautions Safety M7 PT-IP Assessment and Plan Start: 05/25/18 18:14 Freq: NEEDED Status: Active Protocol: Document 05/26/18 13:05 AB (Rec: 05/26/18 16:09 AB [id number]) PT Summary Assessment and Plan Potential Rehabilitation Potential Fair Summary Impairments Pain ROM Strength Balance Coordination Sensation Bed Mobility Transfers Gait Activity Tolerance Progress Towards Goals Slow Progress due to Pain Slow Progress due to Activity Tolerance Assessment Summary pt requires one person assist with mobility. caregiver training set up for tomorrow ~ 10 am with pt's girlfriend. d/c plan depending on pt's progress and if family will be able to provide necessary assistance to pt. will continue to assess. Goals Bed Mobility Goal Independent Transfer Goal Independent Gait Goal Independent Front Wheel Walker Gait Distance 100 Other Goals 2 steps without rail CGA Days to Meet Goals 5 Frequency of Treatment Frequency Of Treatment Twice a Day Treatment Plan Physical Therapy Treatment Plan Bed Mobility Training Transfer Training Gait Training Therapeutic Exercise Balance Retraining Post Op Education Discharge Planning Neuromuscular Re-ed Other Recommendations and Next Treatment bed mobility, ambulation, Focus caregiver training Recommendations To Nursing Amount of Assist Needed 1 Person Assist Discharge Recommendations PT Discharge Recommendations Home with 24/7 Assist SNF Rehab Other Discharge Recommendations SNF vs home with 24/7 assist and possibly homehealth services Equipment Needed for Home Before FWW Discharge
[2018-05-26] MEDS: HYDROMORPHONE 2 MG TABLET 4 MG PO ×4 (13:17→23:54)
[2018-05-26] MEDS: ONDANSETRON 4 MG/2 ML INJ IV (13:19)
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
--- NOTE | 2018-05-26 17:18 | PC.NURSE ---
Addendum entered by Ashley Grove R.N. 05/26/18 23:21: Pt reports dizziness with transfer to bathroom; patient notes severe pain and possibly holding breath due to pain; aide assisted patient back to bed; vss; patient repositioned in bed with call light in reach Original Note: Pt reports severe, acute pain to back, c/m/s to blles positive, PO 4 mg dilaudid moderates pain; pt capable of log roll; drsg to back c/d/i; pt demonstrated IS with 3000 mL output, ls clear, O2 RA=99%; pt reports difficulty initiating urine due to positioning, voided 250 mL by 1700; call light within reach, bed in lowest position, and pt's significant other in room
[2018-05-26] MEDS: SIMVASTATIN 40 MG TABLET PO (21:41)
[2018-05-26] MEDS: SENNOSIDES 8.6 MG TABLET 17.2 MG PO (23:54)
[2018-05-27 00:49] VITALS: BP 141/96; PULSE 90; RESP 17; TEMP 37.1; O2SAT 94
[2018-05-27 04:05] VITALS: BP 138/89; PULSE 93; RESP 16; TEMP 37.2; O2SAT 92
[2018-05-27] MEDS: HALOPERIDOL 1 MG TABLET 0.5 MG PO (04:28)
[2018-05-27] MEDS: HYDROMORPHONE 2 MG TABLET 4 MG PO ×4 (04:29→21:21)
[2018-05-27 07:30] VITALS: BP 143/93; PULSE 89; RESP 22; TEMP 37; O2SAT 93
[2018-05-27] MEDS: GABAPENTIN 600 MG TABLET PO ×3 (08:29→20:17)
[2018-05-27] MEDS: LISINOPRIL 20 MG TABLET PO ×2 (08:29→20:17)
[2018-05-27] MEDS: METFORMIN HCL 500 MG TABLET 1000 MG PO ×2 (08:30→16:26)
[2018-05-27] MEDS: DOCUSATE 100 MG CAPSULE PO ×2 (08:31→20:17)
[2018-05-27] MEDS: diazePAM 5 MG TABLET PO ×2 (08:31→21:21)
--- NOTE | 2018-05-27 08:43 | P.PN_ITS ---
Subjective Date Patient Seen: 05/27/18 Time Patient Seen: 08:38 Interval history: POD #2 s/p L2-[address] Patel. He has had difficulty urinating following surgery with 2 straight catheterizations since surgery. He has no history of BPH or urinary issues. His pain has been significant in his back. He is slow to mobilize with PT. Exam Vital Signs (past 8 hours): - 05/27/18 00:49 05/27/18 04:05 Temperature 98.8 F 99.0 F Pulse Rate 90 93 H Respiratory Rate 17 16 Blood Pressure 141/96 H 138/89 Pulse Oximetry 94 92 Oxygen Delivery Method Room Air Oxygen Flow Rate 2 Narrative Exam Narrative: Patient lying in bed in nAD. He is alert and oriented X3. Calves are soft, compressible, and nontender bilaterally. He is able to actively dorsiflex and plantarflex. Objective Labs Result Diagrams: 05/26/18 05:33 Assessment & Plan Post-op (1) S/P lumbar fusion: Current Visit: Yes Status: Acute (2) Acute urinary retention: Current Visit: Yes Status: Acute Postoperative Procedures Operation Date: 05/25/18 07:45 Actual Procedures Side Surgeon p L2-3 TLIF Abiola Patel MD Patient will continue to mobilize with PT. No excessive bending, lifting, or twisting. Will start patient on flomax for urinary retention. If patient has another episode or retention he should have a willis placed for 24 hours. He was started on a 24 hour steroid burst with 10mg decadron now, and 4 mg every 6 hours. Patient will DC once pain is adequately controlled, urinating on his own , and mobilizing safely. Likely to DC in next 1-2 days. Quality VTE Deep Vein Thrombosis/Pulmonary Embolism Present on Admission: No
[2018-05-27] MEDS: DEXAMETHASONE 4 MG TABLET 10 MG PO (09:34)
[2018-05-27] MEDS: TAMSULOSIN 0.4 MG CAPSULE PO (09:34)
--- NOTE | 2018-05-27 11:28 | OT.IP.TRT ---
Current Diagnoses Spinal stenosis, lumbar region without neurogenic claudication (05/25/18) Intervertebral disc disorders with radiculopathy, lumbar region (05/25/18) Other retention of urine (05/25/18) Arthrodesis status (05/25/18) Surgery Performed Operation Date: 05/25/18 07:45 Actual Procedures p L2-3 TLIF - Abiola Patel MD Occupational Therapy Treatment Note M2 OT-IP Current Condition Start: 05/26/18 15:46 Freq: Status: Active Protocol: Document 05/26/18 15:48 PJM (Rec: 05/26/18 16:04 PJM [id number]) Occupational Therapy Current Condition Current Condition Evaluation Date 05/26/18 Treatment Diagnosis decreased self care, functional mobility due to L2- 3 TLIF Diagnosis Onset Date 05/26/18 Post Operative Precautions Lumbar Precautions Log Roll No Twisting Limit Bending Lifting Restriction of 10 lbs Gait Belt above Incisional Area M3 OT- IP Subjective and Pain Start: 05/26/18 15:46 Freq: Status: Active Protocol: Document 05/27/18 11:28 PJM (Rec: 05/27/18 15:57 PJM [id number]) OT- Subjective Occupational Therapy Visit Type Type Treatment Note Visit Start Time 11:05 Visit Stop Time 11:28 Total Visit Minutes 23 Notes Pt's S.O. Crystal here for education this session. Note pt had to have catheter replaced due to urinary retention this AM. Occupational Therapy Visit Comments Patient Comments I just need to sleep. Patient/Caregiver Goals to go home OT Pain Assessment Pain When Pain Assessed After Treatment Pain Present Pain Present Pain Reported Location Lower Back Intensity 5 Scale Used Numeric (1 - 10) Description Aching Acute M4 OT- IP ADL's Start: 05/26/18 15:46 Freq: Status: Active Protocol: Document 05/27/18 11:28 PJM (Rec: 05/27/18 15:57 PJM [id number]) OT ADL-Dressing Comments OT Dressing Comments Provided education to pt's S.O. re: use of bone drier, sock aid and long shoe horn for lower body dressing within lumbar spine precautions. She has used these tools herself so is familiar with them. She states she is unable to squat down to assist pt with lower body dressing, so educated her to assist pt with socks and shoes while he is in bed if needed. OT ADL-Toileting Comments OT Toileting Comments Provided S.O. with education re: toilet paper aids and resources. She states she can also assist pt PRN if needed. She has borrowed a BSC for pt. OT ADL-Bathing Comments OT Bathing Comments Provided education to pt's S.O. re: lumbar spine precautions during showering. Per S.O., pt does not have grab bar in shower as he previously stated. She plans to use bedside commode as shower seat. Long bath sponge provided. M6 OT- IP Functional Cognition Start: 05/26/18 15:46 Freq: Status: Active Protocol: Document 05/27/18 11:28 PJM (Rec: 05/27/18 15:57 [facility] [id number]) Cognitive Factors Limiting Selfcare Function Cognitive Ability Level of Alertness Drowsy Cognitive Comments Cognitive Assessment Comments Pt has received multiple pain and anti anxiety meds this AM and is very drowsy this session. M9 OT- IP Assessment and Plan Start: 05/26/18 15:46 Freq: Status: Active Protocol: Document 05/27/18 11:28 PJM (Rec: 05/27/18 15:57 [facility] [id number]) OT Summary Assessment and Plan Potential Rehabilitation Potential Good Summary Progress Towards Goals Slow Progress due to Medical Issues Slow Progress due to Activity Tolerance Assessment Summary Pt appears somewhat over sedated this session and too drowsy to participate much; however, was able to provide family training to pt's S.O. re: adapted ADLS within lumbar spine precautions and equipt options. Plan shower and dressing practice tomorrow if pt's medical status permits. Goals Days to Meet Goals 2 Frequency of Treatment Frequency Of Treatment Once a Day Treatment Plan OT Treatment Plan ADL Training Functional Mobility Patient/Family Education Discharge Planning Discharge Recommendations OT Discharge Recommendations Home with Assistance
--- NOTE | 2018-05-27 11:32 | PT.IPTN ---
Current Diagnoses Spinal stenosis, lumbar region without neurogenic claudication (05/25/18) Intervertebral disc disorders with radiculopathy, lumbar region (05/25/18) Other retention of urine (05/25/18) Arthrodesis status (05/25/18) Surgery Performed Operation Date: 05/25/18 07:45 Actual Procedures p L2-3 TLIF - Abiola Patel MD Physical Therapy Treatment Note M2 PT-IP Current Condition Start: 05/25/18 18:14 Freq: NEEDED Status: Active Protocol: Document 05/25/18 16:20 (Rec: 05/25/18 19:02 [id number]) Physical Therapy Current Condition Current Condition Evaluation Date 05/25/18 Treatment Diagnosis L2/L2 TLIF, difficulty in walking Onset Date 05/25/18 Precautions Lumbar Precautions Log Roll No Twisting Limit Bending Lifting Restriction of 10 lbs Gait Belt above Incisional Area Weight Bearing Status Weight Bearing Status Weight Bear as Tolerated M3 PT-IP Subjective Start: 05/25/18 18:14 Freq: NEEDED Status: Active Protocol: Document 05/27/18 11:13 SA (Rec: 05/27/18 11:32 SA [email or web address]) Subjective Physical Therapy Visit Type Type Treatment Note Visit Start Time 10:30 Visit Stop Time 11:02 Total Visit Minutes 32 Number of COPRA SAMPLER Visits 1 Physical Therapy Visit Comments Patient Comments Pt in bed, just had Lance placed and agreeable to PT. Girlfriend Crystal present for caregiver training. Therapy Pain Assessment Pain When Pain Assessed At Rest Pain Present Pain Present Pain Reported Location Lower Back Intensity 7 Scale Used Numeric (1 - 10) Pain Behaviors Guarding Pain Management Techniques Re-positioning Timing of Activity with Medications M4 PT-IP Mobility and Gait Start: 05/25/18 18:14 Freq: NEEDED Status: Active Protocol: Document 05/27/18 11:13 SA (Rec: 05/27/18 11:32 SA [email or web address]) PT-Bed Mobility Assessment Rolling Type of Rolling Log Rolling Roll to Left Level of Assist Moderate Assistance 1 Person Assistance Supine to Sit Supine to Sit Moderate Assistance 1 Person Assistance Scooting Scooting to Edge of Bed Minimal Assistance PT-Transfer Assessment Sit to and From Stand Sit to and from Stand Moderate Assistance 1 Person Assistance Use of Upper Extremities Equipment Transfer Assistive Device Gait Belt Front Wheeled Walker Transfers Transfer Destination Chair Transfer Technique Stand Step Pivot Transfer Ability Level of Assist Contact Guard Assistance Minimal Assistance Use of Upper Extremities Comments Mobility Comments Pt feeling very foggy and unsteady this AM, feels nervous about transfer but does well with clear instruction and explaining of steps. Marni able to help manage/stabalize FWW and receptive to caregiver transfer training. Marni has calming effect on patient as he is anxious with mobility and fearful of falling. Review /practice of log roll technique with patient and caregier. Gait Assessment Comments Gait Comments Unable this AM, plan to attempt this afternoon. M5 PT-IP Objective Assessments Start: 05/25/18 18:14 Freq: NEEDED Status: Active Protocol: Document 05/25/18 16:20 HH (Rec: 05/25/18 19:02 HH [id number]) Orientation Orientation/Cognition Level of Alertness Alert Orientation Name Age Birthday Month Date Year Day of Week Place Situation Language Function Ability No Deficits Noted Safety Awareness Understands Safety Issues Memory Description No Deficits Noted Gross Range of Motion Upper Extremity ROM Assessment Within Functional Limits Lower Extremity ROM Assessment Within Functional Limits Strength Upper Extremity Strength Assessment Within Functional Limits Lower Extremity Strength Assessment Within Functional Limits Coordination Assessment Gross Coordination Gross Coordination WNL Sensation Assessment Sensation Gross Sensation WNL M6 PT-IP Treatment Start: 05/25/18 18:14 Freq: NEEDED Status: Active Protocol: Document 05/27/18 11:13 SA (Rec: 05/27/18 11:32 SA [email or web address]) Physical Therapy Treatment Exercises Exercises Ankle Pumps Gluteal Sets Quad Sets Education Education Provided Precautions Safety M7 PT-IP Assessment and Plan Start: 05/25/18 18:14 Freq: NEEDED Status: Active Protocol: Document 05/27/18 11:13 SA (Rec: 05/27/18 11:32 SA [id number]) PT Summary Assessment and Plan Potential Rehabilitation Potential Fair Summary Progress Towards Goals Slow Progress due to Pain Slow Progress due to Activity Tolerance Assessment Summary Pt tends to focus on safety, pain and fear of falling. Needs reassurance and mobility steps explained clearly. Min A with transfers and Mod A with bed mobility with continued education/review of spinal precautions. Frequency of Treatment Frequency Of Treatment Twice a Day Treatment Plan Physical Therapy Treatment Plan Bed Mobility Training Transfer Training Gait Training Therapeutic Exercise Balance Retraining Post Op Education Discharge Planning Neuromuscular Re-ed Recommendations To Nursing Amount of Assist Needed 1 Person Assist Discharge Recommendations PT Discharge Recommendations Home with / Assist SNF Rehab Other Discharge Recommendations Continue to assess level of care Crystal can provide as she has medical issues as well and is unable to lift. Pt may need SNF prior to d/c home, pending progress here. Equipment Needed for Home Before Acquired FWW Discharge
[2018-05-27] MEDS: DEXAMETHASONE 4 MG TABLET PO ×2 (14:48→18:01)
[2018-05-27] MEDS: HYDROMORPHONE 2 MG TABLET PO (14:48)
--- NOTE | 2018-05-27 14:52 | PC.NURSE ---
1030 Placed an indwelling willis cath as Pt continues to have urinary retention, 800 ml out, Pt rashad well. 1300 Pt up to BRP x 1, passed gas. PO pain meds given with good relief. Needs mod assist of 1 to be up .
--- NOTE | 2018-05-27 15:03 | PT.IPTN ---
Current Diagnoses Spinal stenosis, lumbar region without neurogenic claudication (05/25/18) Intervertebral disc disorders with radiculopathy, lumbar region (05/25/18) Other retention of urine (05/25/18) Arthrodesis status (05/25/18) Surgery Performed Operation Date: 05/25/18 07:45 Actual Procedures p L2-3 TLIF - Abiola Patel MD Physical Therapy Treatment Note M2 PT-IP Current Condition Start: 05/25/18 18:14 Freq: NEEDED Status: Active Protocol: Document 05/25/18 16:20 HH (Rec: 05/25/18 19:02 [email or web address]) Physical Therapy Current Condition Current Condition Evaluation Date 05/25/18 Treatment Diagnosis L2/L2 TLIF, difficulty in walking Onset Date 05/25/18 Precautions Lumbar Precautions Log Roll No Twisting Limit Bending Lifting Restriction of 10 lbs Gait Belt above Incisional Area Weight Bearing Status Weight Bearing Status Weight Bear as Tolerated M3 PT-IP Subjective Start: 05/25/18 18:14 Freq: NEEDED Status: Active Protocol: Document 05/27/18 15:01 SA (Rec: 05/27/18 15:03 SA [email or web address]) Subjective Physical Therapy Visit Type Type Patient Refusal Notes Pt very tired this afternoon. Declines PT, stating he had a very busy morning dealing with catheter and was up in chair for a few hours and now is just too fatigued to do anything. M4 PT-IP Mobility and Gait Start: 05/25/18 18:14 Freq: NEEDED Status: Active Protocol: Document 05/27/18 11:13 SA (Rec: 05/27/18 11:32 SA [email or web address]) PT-Bed Mobility Assessment Rolling Type of Rolling Log Rolling Roll to Left Level of Assist Moderate Assistance 1 Person Assistance Supine to Sit Supine to Sit Moderate Assistance 1 Person Assistance Scooting Scooting to Edge of Bed Minimal Assistance PT-Transfer Assessment Sit to and From Stand Sit to and from Stand Moderate Assistance 1 Person Assistance Use of Upper Extremities Equipment Transfer Assistive Device Gait Belt Front Wheeled Walker Transfers Transfer Destination Chair Transfer Technique Stand Step Pivot Transfer Ability Level of Assist Contact Guard Assistance Minimal Assistance Use of Upper Extremities Comments Mobility Comments Pt feeling very foggy and unsteady this AM, feels nervous about transfer but does well with clear instruction and explaining of steps. Crystal able to help manage/stabalize FWW and receptive to caregiver transfer training. Marni has calming effect on patient as he is anxious with mobility and fearful of falling. Review /practice of log roll technique with patient and caregier. Gait Assessment Comments Gait Comments Unable this AM, plan to attempt this afternoon. M5 PT-IP Objective Assessments Start: 05/25/18 18:14 Freq: NEEDED Status: Active Protocol: Document 05/25/18 16:20 (Rec: 05/25/18 19:02 [email or web address]) Orientation Orientation/Cognition Level of Alertness Alert Orientation Name Age Birthday Month Date Year Day of Week Place Situation Language Function Ability No Deficits Noted Safety Awareness Understands Safety Issues Memory Description No Deficits Noted Gross Range of Motion Upper Extremity ROM Assessment Within Functional Limits Lower Extremity ROM Assessment Within Functional Limits Strength Upper Extremity Strength Assessment Within Functional Limits Lower Extremity Strength Assessment Within Functional Limits Coordination Assessment Gross Coordination Gross Coordination WNL Sensation Assessment Sensation Gross Sensation WNL M6 PT-IP Treatment Start: 05/25/18 18:14 Freq: NEEDED Status: Active Protocol: Document 05/27/18 11:13 SA (Rec: 05/27/18 11:32 SA [email or web address]) Physical Therapy Treatment Exercises Exercises Ankle Pumps Gluteal Sets Quad Sets Education Education Provided Precautions Safety M7 PT-IP Assessment and Plan Start: 05/25/18 18:14 Freq: NEEDED Status: Active Protocol: Document 05/27/18 11:13 SA (Rec: 05/27/18 11:32 SA [email or web address]) PT Summary Assessment and Plan Potential Rehabilitation Potential Fair Summary Progress Towards Goals Slow Progress due to Pain Slow Progress due to Activity Tolerance Assessment Summary Pt tends to focus on safety, pain and fear of falling. Needs reassurance and mobility steps explained clearly. Min A with transfers and Mod A with bed mobility with continued education/review of spinal precautions. Frequency of Treatment Frequency Of Treatment Twice a Day Treatment Plan Physical Therapy Treatment Plan Bed Mobility Training Transfer Training Gait Training Therapeutic Exercise Balance Retraining Post Op Education Discharge Planning Neuromuscular Re-ed Recommendations To Nursing Amount of Assist Needed 1 Person Assist Discharge Recommendations PT Discharge Recommendations Home with 24/7 Assist SNF Rehab Other Discharge Recommendations Continue to assess level of care Marni can provide as she has medical issues as well and is unable to lift. Pt may need SNF prior to d/c home, pending progress here. Equipment Needed for Home Before Aquired FWW Discharge
[2018-05-27 15:38] VITALS: BP 134/86; PULSE 77; RESP 18; TEMP 36.4; O2SAT 92
--- NOTE | 2018-05-27 18:52 | PC.NURSE ---
Elvia shift note: Patient awake, calm, and pleasant. Up out of bed and ambulated in hallway with FWW, steady gait noted. 1PA. No dizziness. Dressing changed to mid lower back, CDI. [place] barrier. Calls appropriately for staff assistance
[2018-05-27] MEDS: SENNOSIDES 8.6 MG TABLET 17.2 MG PO (20:17)
[2018-05-27] MEDS: SIMVASTATIN 40 MG TABLET PO (20:18)
[2018-05-27 20:40] VITALS: BP 143/88; PULSE 86; RESP 18; TEMP 36.3; O2SAT 97
[2018-05-27] MEDS: ACETAMINOPHEN 325 MG TABLET 650 MG PO (21:21)
[2018-05-28] MEDS: DEXAMETHASONE 4 MG TABLET PO ×2 (00:26→06:50)
[2018-05-28] MEDS: HYDROMORPHONE 2 MG TABLET PO ×3 (00:26→09:53)
[2018-05-28 00:35] VITALS: BP 125/79; PULSE 66; RESP 18; TEMP 36.2; O2SAT 95
--- NOTE | 2018-05-28 03:04 | PC.NURSE ---
County Manager Note: 0030: Awakened for medication. Pt having pain, medicated with Dilaudid 2mg po. Lance catheter patent, urine is clear kristin. IV in place in rt forearm. Dressing to back is cdi. Pt denies numbness or tingling to lower extremities. Visitor at bedside.
[2018-05-28] MEDS: HYDROMORPHONE 2 MG TABLET 4 MG PO (03:47)
[2018-05-28 04:01] VITALS: BP 145/85; PULSE 62; RESP 18; TEMP 36.3; O2SAT 93
[2018-05-28] MEDS: ACETAMINOPHEN 325 MG TABLET 650 MG PO ×2 (04:15→09:53)
[2018-05-28] MEDS: TAMSULOSIN 0.4 MG CAPSULE PO (07:42)
[2018-05-28] MEDS: METFORMIN HCL 500 MG TABLET 1000 MG PO (07:42)
[2018-05-28] MEDS: DOCUSATE 100 MG CAPSULE PO (07:42)
[2018-05-28] MEDS: LISINOPRIL 20 MG TABLET PO (07:42)
[2018-05-28] MEDS: GABAPENTIN 600 MG TABLET PO (07:42)
[2018-05-28] MEDS: hydrOXYzine pamoate 25 MG CAPSULE PO (07:46)
--- NOTE | 2018-05-28 07:49 | PM.DS.1 ---
History of Present Illness Date Patient Seen: 05/28/18 Chief complaint: [id number] L2-3 TLIF Narrative: Patient seen bedside status post L2-[address] Patel. Patient is postop day 3. He is doing well, he had continued urinary retention yesterday and had a willis placed. He was also placed on Flomax. His pain has improved with the steroid burst from yesterday. He would like to go home if he can urinate. Discharge Providers Date of admission: 05/25/18 06:14 Primary care physician: Ramy Marquez MD Consults: 05/25/18 12:07 Consult to Occupational Therapy Evaluate & Treat Comment: Physician Instructions: Evaluate and treat Consult to Physical Therapy Evaluate & Treat Comment: Physician Instructions: Evaluate and Treat Discharge provider: Kadi Clement PA-C Discharge Date: 05/28/18 Summary Discharge Diagnosis: 1. L2-3 far lateral disc herniation 2. Lumbar spinal stenosis 3. Urinary retention [id number] Hospital Course: Patient was admitted to the hospital status post L2-[address] Patel on 05/25/2018. Patient tolerated the procedure well with no major complications. Patient was transitioned to the acute care floor where he experienced urinary retention. He received a Willis catheter on the . He was given Flomax to assist his urination. Catheter was removed on 05/28/2018 and he was able to urinate. He was stable and ready for discharge on 05/28/2018. Status at Discharge Cognitive/behavioral status at discharge: Alert and oriented x3 Functional status at discharge: uses cane/walker Overall status at discharge: patient is progressing back to baseline Time Spent with Patient Less than 30 minutes Exam Vital Signs (past 8 hours): - 05/28/18 00:35 05/28/18 04:01 Temperature 97.2 F L 97.4 F L Pulse Rate 66 62 Respiratory Rate 18 18 Blood Pressure 125/79 145/85 H Pulse Oximetry 95 93 Oxygen Delivery Method Room Air Oxygen Flow Rate 0 Narrative Exam Narrative: Well-developed well-nourished no acute distress. Patient is oriented x3. Dressing is clean dry and intact and lumbar spine. Calves are soft and compressible with full range of motion bilateral lower extremities. No focal deficits noted. Objective Labs Result Diagrams: 05/26/18 05:33 Discharge Plan Discharge Plan Patient Disposition: Home Discharge comment: d/c once urinary retention clears Discharge Med Rec/Prescriptions Prescriptions: New acetaminophen 325 mg Tablet 650 mg PO Q6HR PRN (Reason: Pain, Mild (1-3)) Qty: 0 RF: 0 hydromorphone 2 mg Tablet 2 mg PO Q4H PRN (Reason: pain) Qty: 40 RF: 0 docusate sodium 100 mg Capsule 100 mg PO BID Qty: 0 RF: 0 tamsulosin [Flomax] 0.4 mg Capsule 0.4 mg PO DAILY 20 Days Qty: 20 RF: 0 hydroxyzine pamoate 25 mg Capsule 25 mg PO Q4HR PRN (Reason: Nausea And Vomiting) Qty: 40 RF: 0 Continue coenzyme Q10 [Co Q-10] 100 MG capsule 100 mg PO BEDTIME Qty: 0 RF: 0 metformin 1,000 mg tablet 1,000 mg PO BIDCC Qty: 180 RF: 1 simvastatin 40 mg tablet 40 mg PO BEDTIME Qty: 30 RF: 5 lisinopril [Prinivil] 20 mg tablet 20 mg PO BID Qty: 180 RF: 1 diazepam 5 mg tablet 5 mg PO BID Qty: 60 RF: 1 gabapentin 300 mg capsule 600 mg PO TID Qty: 180 RF: 2 trazodone 100 mg Tablet 100 mg PO BEDTIME PRN (Reason: Sleep) RF: 0 Discontinued meloxicam [Mobic] 7.5 mg tablet 7.5 mg PO DAILY PRN (Reason: pain) Qty: 30 RF: 2 hydrocodone-acetaminophen 7.5-325 mg Tablet 10 - 325 mg PO Q6H PRN (Reason: pain) RF: 0 Follow up/Referrals: Ramy Marquez MD [Primary Care Provider] - (follow up with your food service ambassador ) Abiola Patel MD [Physician] - (Follow up with office in 2 weeks at previously scheduled post-op appointment) Provider Discharge Instructions Diet: Diet as Tolerated Activity: Weightbearing as tolerated, no lifting greater than 5 lbs, no bending/twisting Cold/Heat Therapy: Apply ice 20 minutes at a time to surgical site at least hourly as needed for pain while wake Skin/Wound/Dressing Care Report to your healthcare provider any signs of infection, such as:: chills, fever, night sweats, increased pain, unusual drainage and unusual redness Dressing: Keep dressing clean, dry, and intact. May shower with it in place but no soaking Visit Report/Discharge Packet Instructions: DI for Constipation, DI for Urinary Retention in Men, DI for Transforaminal Lumbar Interbody Fusion Visit Report Forms: Stroke Signs & Symptoms Discharge Data Primary Care Provider: Ramy Marquez Attending Provider: Abiola Patel Admit Date/Time: 05/25/18 06:14 Quality VTE Deep Vein Thrombosis/Pulmonary Embolism Present on Admission: No
[2018-05-28 07:55] VITALS: BP 134/96; PULSE 67; RESP 18; TEMP 36.3; O2SAT 94
--- NOTE | 2018-05-28 09:30 | PT.IPTN ---
Current Diagnoses Spinal stenosis, lumbar region without neurogenic claudication (05/25/18) Intervertebral disc disorders with radiculopathy, lumbar region (05/25/18) Other retention of urine (05/25/18) Arthrodesis status (05/25/18) Surgery Performed Operation Date: 05/25/18 07:45 Actual Procedures p L2-3 TLIF - Abiola Patel MD Physical Therapy Treatment Note M2 PT-IP Current Condition Start: 05/25/18 18:14 Freq: NEEDED Status: Active Protocol: Document 05/25/18 16:20 HH (Rec: 05/25/18 19:02 [email or web address]) Physical Therapy Current Condition Current Condition Evaluation Date 05/25/18 Treatment Diagnosis L2/L2 TLIF, difficulty in walking Onset Date 05/25/18 Precautions Lumbar Precautions Log Roll No Twisting Limit Bending Lifting Restriction of 10 lbs Gait Belt above Incisional Area Weight Bearing Status Weight Bearing Status Weight Bear as Tolerated M3 PT-IP Subjective Start: 05/25/18 18:14 Freq: NEEDED Status: Active Protocol: Document 05/28/18 09:30 GGD (Rec: 05/28/18 12:10 GGD [id number]) Subjective Physical Therapy Visit Type Type Treatment Note Visit Start Time 09:00 Visit Stop Time 09:30 Total Visit Minutes 30 Number of BUS CLEANER Visits 2 Physical Therapy Visit Comments Patient Comments Pt states he is feeling better . Therapy Pain Assessment Pain When Pain Assessed At Rest Pain Present Pain Present Pain Reported M4 PT-IP Mobility and Gait Start: 05/25/18 18:14 Freq: NEEDED Status: Active Protocol: Document 05/28/18 09:30 GGD (Rec: 05/28/18 12:10 GGD [id number]) PT-Bed Mobility Assessment Rolling Type of Rolling Log Rolling Roll to Left Level of Assist Contact Guard Assistance 1 Person Assistance Supine to Sit Supine to Sit Contact Guard Assistance 1 Person Assistance Bedrails Scooting Scooting to Edge of Bed Standby Assistance PT-Transfer Assessment Sit to and From Stand Sit to and from Stand Contact Guard Assistance 1 Person Assistance Use of Upper Extremities Equipment Transfer Assistive Device Gait Belt Front Wheeled Walker Transfers Transfer Destination Toilet Transfer Ability Level of Assist Contact Guard Assistance 1 Person Assistance Use of Upper Extremities Gait Assessment Gait Gait Assistance Required: Contact Guard Assist Distance (Feet) 170 Able to Maintain Weight Bearing Status Yes During Gait Assistive Devices Assistive Device Gait Belt Front Wheeled Walker Orthotic/Prosthetic Devices or Brace: No Gait Deviations General Gait Pattern Decreased Stride Length Decreased Feet Clearance Factors Limiting Gait Function Factors Limiting Gait Function Decreased Activity Tolerance Decreased Strength Limited Range of Motion Pain Poor Balance M5 PT-IP Objective Assessments Start: 05/25/18 18:14 Freq: NEEDED Status: Active Protocol: Document 05/25/18 16:20 HH (Rec: 05/25/18 19:02 [email or web address]) Orientation Orientation/Cognition Level of Alertness Alert Orientation Name Age Birthday Month Date Year Day of Week Place Situation Language Function Ability No Deficits Noted Safety Awareness Understands Safety Issues Memory Description No Deficits Noted Gross Range of Motion Upper Extremity ROM Assessment Within Functional Limits Lower Extremity ROM Assessment Within Functional Limits Strength Upper Extremity Strength Assessment Within Functional Limits Lower Extremity Strength Assessment Within Functional Limits Coordination Assessment Gross Coordination Gross Coordination WNL Sensation Assessment Sensation Gross Sensation WNL M6 PT-IP Treatment Start: 05/25/18 18:14 Freq: NEEDED Status: Active Protocol: Document 05/28/18 09:30 GGD (Rec: 05/28/18 12:10 GGD [id number]) Physical Therapy Treatment Education Education Provided Precautions Safety M7 PT-IP Assessment and Plan Start: 05/25/18 18:14 Freq: NEEDED Status: Active Protocol: Document 05/28/18 09:30 GGD (Rec: 05/28/18 12:10 GGD [id number]) PT Summary Assessment and Plan Summary Assessment Summary Pt improving with mobility. He need mod cues with all activity. He was able to progress gait distance, but had a slow gait pace. Frequency of Treatment Frequency Of Treatment Twice a Day Treatment Plan Other Recommendations and Next Treatment stair training without rails. Focus Recommendations To Nursing Amount of Assist Needed 1 Person Assist Discharge Recommendations PT Discharge Recommendations Home with 09/12 Assist
--- NOTE | 2018-05-28 10:54 | OT.IP.TRT ---
Current Diagnoses Spinal stenosis, lumbar region without neurogenic claudication (05/25/18) Intervertebral disc disorders with radiculopathy, lumbar region (05/25/18) Other retention of urine (05/25/18) Arthrodesis status (05/25/18) Surgery Performed Operation Date: 05/25/18 07:45 Actual Procedures p L2-3 TLIF - Abiola Patel MD Occupational Therapy Treatment Note M2 OT-IP Current Condition Start: 05/26/18 15:46 Freq: Status: Active Protocol: Document 05/26/18 15:48 PJM (Rec: 05/26/18 16:04 PJM [id number]) Occupational Therapy Current Condition Current Condition Evaluation Date 05/26/18 Treatment Diagnosis decreased self care, functional mobility due to L2- 3 TLIF Diagnosis Onset Date 05/26/18 Post Operative Precautions Lumbar Precautions Log Roll No Twisting Limit Bending Lifting Restriction of 10 lbs Gait Belt above Incisional Area M3 OT- IP Subjective and Pain Start: 05/26/18 15:46 Freq: Status: Active Protocol: Document 05/28/18 10:54 PJM (Rec: 05/28/18 14:07 PJM [id number]) OT- Subjective Occupational Therapy Visit Type Type Treatment Note Visit Start Time 09:45 Visit Stop Time 10:54 Total Visit Minutes 69 Notes Pt's S.O. here for education this session. Occupational Therapy Visit Comments Patient Comments I feel much better today. I think I can go home this afternoon. Patient/Caregiver Goals to have less pain, be more active again OT Pain Assessment Pain When Pain Assessed After Treatment Pain Present Pain Present Pain Reported Location Lower Back Intensity 5 Scale Used Numeric (1 - 10) Description Aching Acute Management Techniques Distraction Re-positioning Timing of Activity with Medications M4 OT- IP ADL's Start: 05/26/18 15:46 Freq: Status: Active Protocol: Document 05/28/18 10:54 PJM (Rec: 05/28/18 14:07 PJM [email or web address]) OT ADL-Grooming General Evaluation Grooming Ability Standby Assistance Comments OT Grooming Comments provided education re: body mechanics when standing at sink OT ADL-Oral Care Comments Oral Care Comments provided education re: body mechanics when standing at sink OT ADL-Dressing General Eval Upper Body Dressing Ability Independent Lower Body Dressing Ability Standby Assistance Minimal Assistance Areas Needing Assistance Underpants/Brief Pants/Shorts Socks Shoes Assistive Devices Dressing Assistive Devices Long Handled Shoe Horn Machine I Cutter Sock Aid Comments OT Dressing Comments Pt educated re: use of adaptive equipment and body mechanics during lower body dressing. Pt SBA to don pants and socks with maintenance mechanic telephone and sock aid, pt needed min assist to don slippers due to style. Provided education re: shoe/ slipper styles that allow pt more independence. Pt can borrow all necesary adaptive equipt from S.O. at home. OT ADL-Toileting General Evaluation Toileting Ability Independent Areas Needing Assistance Perform Perineal Hygiene Comments OT Toileting Comments Provided education re: body mechanics; pt need for declines toilet paper aid OT ADL-Bathing Bathing Type Bathing Type Shower General Evaluation Bathing Ability Minimal Assistance Areas Needing Assistance Wash/Dry Upper Body Devices Bathing Equipment Long Handled Sponge or [place] Shower Chair with Arms Grab Bars Comments OT Bathing Comments Provided education re: body mechanics during showering. Provided long bath sponge. Provided education re: use of maintenance mechanic telephone and towel to dry lower legs and feet. Pt's S.O. can assist pt appropriately. M6 OT- IP Functional Cognition Start: 05/26/18 15:46 Freq: Status: Active Protocol: Document 05/28/18 10:54 PJM (Rec: 05/28/18 14:07 [facility] [email or web address]) Cognitive Factors Limiting Selfcare Function Cognitive Ability Level of Alertness Alert Patient Orientation Name Age Birthday Month Date Year Day of Week Place Situation Attention Span Ability Capable of Focused Attention Capable of Sustained Attention Ability to Follow Commands Able to Follow One Step Commands Able to Follow Multi-Step Commands Memory Description No Deficits Noted Safety Awareness No Deficits Noted Problem Solving Ability No deficits Noted Cognitive Comments Cognitive Assessment Comments Pt much more alert today on less pain and anxiety medication. He still has anxiety overlay, but much improved today. Pt verbalizes and demo's 3/3 lumbar spine precautions. M7 OT- IP Mobility and Balance Start: 05/26/18 15:46 Freq: Status: Active Protocol: Document 05/28/18 10:54 PJM (Rec: 05/28/18 14:07 [facility] [email or web address]) OT- Bed Mobility Assessment Rolling Type of Rolling Roll to Right Level of Assistance Independent 1 Person Assistance Supine to Sit Supine to Sit Assist Standby Assistance 1 Person Assistance Sit to Supine Sit to Supine Assist Standby Assistance Scooting Scooting to Edge of Bed Independent OT-Transfer Assessment Sit to and From Stand Sit to and from Stand Contact Guard Assistance 1 Person Assistance Use of Upper Extremities Transfers Transfer Ability Standby Assistance Contact Guard Assistance 1 Person Assistance Technique Transfer Destination Bed Car Chair Shower Stall Toilet Transfer Technique Stand Step Pivot Devices Transfer Assistive Devices Gait Belt Front Wheeled Walker Comments Mobility Comments S.O. has obtained bedside commode for use over toilet and pt using that here also. Pt needs CGA for shower stall transfer. S.O. has suction grab bar for home use. Provided education re: car transfers and pt/S.O. verbalize understanding. OT- Gait Assessment Gait Gait Assistance Required: Standby Assistance Distance (Feet) 20 Assistive Devices Assistive Device Gait Belt Front Wheeled Walker OT- Balance Assessment Sitting Balance and Reactions Static Sitting Balance Ability Good Dynamic Sitting Balance Ability Good Standing Balance and Reactions Static Standing Balance Ability Good Dynamic Standing Balance Ability Fair Comments Other Balance Tests/Deviations/Treatment Pt using grab bar for : stability in standing during shower. M M9 OT- IP Assessment and Plan Start: 05/26/18 15:46 Freq: Status: Active Protocol: Document 05/28/18 10:54 PJM (Rec: 05/28/18 14:07 KEVIN [email or web address]) OT Summary Assessment and Plan Potential Rehabilitation Potential Good Summary Progress Towards Goals Safe For Discharge Goals Met Assessment Summary Pt much more alert and with much improved pain control, activity tolerance and independence in functional mobility and basic self care skills today as described above. All OT goals achieved for this admission. S.O. observing entire session today and can assist pt appropriately at home. Pt safe to d/c home with family assist when medically stable and clears P.T. no further acute care OT services needed. Note S.O. requesting home health P.T. services. Notified P.T. and RN. Frequency of Treatment Frequency Of Treatment Discharge Discharge Recommendations OT Discharge Recommendations Home with 09/12 Assist
[2018-05-28] MEDS: diazePAM 5 MG TABLET PO (11:00)
[2018-05-28 11:50] VITALS: BP 147/100; PULSE 91; RESP 18; TEMP 36.4; O2SAT 95
--- NOTE | 2018-05-28 13:50 | PT.IPTN ---
Current Diagnoses Spinal stenosis, lumbar region without neurogenic claudication (05/25/18) Intervertebral disc disorders with radiculopathy, lumbar region (05/25/18) Other retention of urine (05/25/18) Arthrodesis status (05/25/18) Surgery Performed Operation Date: 05/25/18 07:45 Actual Procedures p L2-3 TLIF - Abiola Patel MD Physical Therapy Treatment Note M2 PT-IP Current Condition Start: 05/25/18 18:14 Freq: NEEDED Status: Discharge Protocol: Document 05/25/18 16:20 HH (Rec: 05/25/18 19:02 [id number]) Physical Therapy Current Condition Current Condition Evaluation Date 05/25/18 Treatment Diagnosis L2/L2 TLIF, difficulty in walking Onset Date 05/25/18 Precautions Lumbar Precautions Log Roll No Twisting Limit Bending Lifting Restriction of 10 lbs Gait Belt above Incisional Area Weight Bearing Status Weight Bearing Status Weight Bear as Tolerated M3 PT-IP Subjective Start: 05/25/18 18:14 Freq: NEEDED Status: Discharge Protocol: Document 05/28/18 13:50 GGD (Rec: 05/28/18 14:47 GGD [id number]) Subjective Physical Therapy Visit Type Type Treatment Note Visit Start Time 13:20 Visit Stop Time 13:50 Total Visit Minutes 30 Number of [employer] Visits 3 Physical Therapy Visit Comments Patient Comments Pt states he is ready for stairs. Therapy Pain Assessment Pain When Pain Assessed At Rest Pain Present Pain Present Pain Reported M4 PT-IP Mobility and Gait Start: 05/25/18 18:14 Freq: NEEDED Status: Discharge Protocol: Document 05/28/18 13:50 GGD (Rec: 05/28/18 14:47 GGD [id number]) PT-Transfer Assessment Sit to and From Stand Sit to and from Stand Contact Guard Assistance 1 Person Assistance Use of Upper Extremities Equipment Transfer Assistive Device Gait Belt Front Wheeled Walker Transfers Transfer Destination Wheelchair Transfer Ability Level of Assist Contact Guard Assistance 1 Person Assistance Use of Upper Extremities Gait Assessment Gait Gait Assistance Required: Standby Assistance Distance (Feet) 350 Able to Maintain Weight Bearing Status Yes During Gait Assistive Devices Assistive Device Gait Belt Front Wheeled Walker Orthotic/Prosthetic Devices or Brace: No Gait Deviations General Gait Pattern Decreased Stride Length Decreased Feet Clearance Factors Limiting Gait Function Factors Limiting Gait Function Decreased Activity Tolerance Decreased Strength Limited Range of Motion Pain Poor Balance Stair Climbing Assessment Evaluation Level of Assist On Stairs Contact Guard Assistance Devices Stair Climbing Assistive Devices None Left Railing Technique/Endurance Stair Climbing Direction Ascend and Descend Stair Climbing Technique Step to Step Number of Steps Climbed 3 Query Text: Stair Climbing Set # Repetitions (reps) 1 Comments Stair Climbing Comments Pt used wall on left and hand hold on right for stair mobility. CGA for hand hold assist. M5 PT-IP Objective Assessments Start: 05/25/18 18:14 Freq: NEEDED Status: Discharge Protocol: Document 05/25/18 16:20 HH (Rec: 05/25/18 19:02 [id number]) Orientation Orientation/Cognition Level of Alertness Alert Orientation Name Age Birthday Month Date Year Day of Week Place Situation Language Function Ability No Deficits Noted Safety Awareness Understands Safety Issues Memory Description No Deficits Noted Gross Range of Motion Upper Extremity ROM Assessment Within Functional Limits Lower Extremity ROM Assessment Within Functional Limits Strength Upper Extremity Strength Assessment Within Functional Limits Lower Extremity Strength Assessment Within Functional Limits Coordination Assessment Gross Coordination Gross Coordination WNL Sensation Assessment Sensation Gross Sensation WNL M6 PT-IP Treatment Start: 05/25/18 18:14 Freq: NEEDED Status: Discharge Protocol: Document 05/28/18 13:50 GGD (Rec: 05/28/18 14:47 GGD [id number]) Physical Therapy Treatment Education Education Provided Precautions Safety M7 PT-IP Assessment and Plan Start: 05/25/18 18:14 Freq: NEEDED Status: Discharge Protocol: Document 05/28/18 13:50 GGD (Rec: 05/28/18 14:47 GGD [id number]) PT Summary Assessment and Plan Summary Assessment Summary Pt improved with gait distance and tolerance. He was safe and stable with stair mobility . He safe for home D/C when medically stable. Frequency of Treatment Frequency Of Treatment Twice a Day Treatment Plan Physical Therapy Treatment Plan Bed Mobility Training Transfer Training Gait Training Therapeutic Exercise Balance Retraining Post Op Education Discharge Planning Neuromuscular Re-ed Recommendations To Nursing Amount of Assist Needed 1 Person Assist Discharge Recommendations PT Discharge Recommendations Home with 24/ Assist
--- NOTE | 2018-05-28 14:41 | PC.NURSE ---
Discharge: Pt feels ready for d/c home. Lance out this am and has voided x3 total pvr less than 150mls. Seen by PT and given their final instructions. Is following his lami precautions. Has rx and SO has filled them. Cover site dressing to back replaced, wound w/out drainage. Extra dressing given to SO if needed at home. Po pain meds have been effective. Seen by OT and information completed. Discharge information reviewed. Pt d/c home via auto w/SO.
== END 2018-05-28 14:00 | disposition home or self-care (01) | DRG 455 ==
PROVIDERS: Admitting Provider Orthopaedic Surgery Orthopaedic Surgery of the Spine; PCP Student in an Organized Health Care Education/Training Program; Visit Provider Orthopaedic Surgery Orthopaedic Surgery of the Spine
PROC: 0SG00AJ Fusion of Lumbar Vertebral Joint with Interbody Fusion Device, Posterior Approach, Anterior Column, Open Approach (ICD-10-PCS; principal; 2018-05-25 07:45)
DX: M51.26 Other intervertebral disc displacement, lumbar region (principal); M48.061 Spinal stenosis, lumbar region without neurogenic claudication; M51.16 Intervertebral disc disorders with radiculopathy, lumbar region; G40.909 Epilepsy, unspecified, not intractable, without status epilepticus; I10 Essential (primary) hypertension; E11.9 Type 2 diabetes mellitus without complications; F32.9 Major depressive disorder, single episode, unspecified; Z79.84 Long term (current) use of oral hypoglycemic drugs; R06.6 Hiccough; R33.9 Retention of urine, unspecified
CPT/HCPCS: 36415; 72100; 76000; 82962; 85014; 85018; 97116; 97162; 97165; 97530; 97535; C1776; C9290; J0330; J1100; J1170; J2060; J2250; J2405; J2704; J3010

== ENCOUNTER → 2018-06-03 13:31 | Outpatient (CLI) | payer OTHER, SELFPAY ==
[2018-05-25 12:28] VITALS: BMI 28.5
[2018-06-03 13:37] LABS: RBC Urine None Seen (0-5/HPF)
[2018-06-03 14:31] LABS: Appearance Urine UA SL CLOUDY; Bilirubin Urine UA NEGATIVE (NEGATIVE); Color Urine UA YELLOW; Glucose Urine UA NEGATIVE (Negative); Ketones Urine UA NEGATIVE (NEGATIVE); Leukocyte Esterase Urine UA NEGATIVE (NEGATIVE); Nitrite Urine UA NEGATIVE (Negative); Occult Blood Urine UA NEGATIVE (Negative); Protein Urine UA NEGATIVE (Negative); Specific Gravity Urine UA 1.015 (1.000-1.035); Urobilinogen Urine UA 0.2 E.U./dL (0.2); pH Urine UA 6.5 (4.5-8.0)
[2018-06-03 14:57] LABS: Bacteria Urine Many (>30); Squamous Epithelial Cell Urine 1-5 /HPF; WBC Urine 0-1/HPF (0-5/HPF)
[2018-06-03 14:58] LABS: Culture Indicated Urine Cult Not Indicated
== END ==
PROVIDERS: PCP Student in an Organized Health Care Education/Training Program; Visit Provider Student in an Organized Health Care Education/Training Program
DX: R33.8 Other retention of urine (principal)
CPT/HCPCS: 81001

== ENCOUNTER → 2018-07-02 11:29 | Outpatient (CLI) | payer OTHER, SELFPAY ==
[2018-05-25 12:28] VITALS: BMI 28.5
--- NOTE | 2018-07-02 | DI.RAD.S_ITS ---
PROCEDURE: XR LUMBAR SPINE 2-3V INDICATIONS: LUMBAR DISC HERNIATION,SPINAL STENOSIS OF LUMBAR REGION TECHNIQUE: 2 views of the lumbar spine were acquired. COMPARISON: [facility], CR, XR LUMBAR SPINE 2-3V, 05/25/2018, 8:33. FINDINGS: Bones: No fracture or focal osseous destruction. Posterior spinal instrumentation with paraspinal rods pedicle screws from L2-L3. There is also interbody cage graft. Hardware appears intact. No evidence of loosening or failure. Residual trace retrolisthesis of L2 on L3 as before. Lower lumbar facet arthropathy. Soft tissues: Overlying bowel gas pattern is normal. No suspicious soft tissue calcifications. IMPRESSION: Status post L2-L3 spinal instrumentation as above. Expected postoperative alignment without evidence of hardware loosening or failure. Trace residual retrolisthesis of L2 on L3. Lower lumbar facet arthropathy. Dictated by: Raúl Santos M.D. on 07/02/2018 at 13:07 Approved by: Raúl Santos M.D. on 07/02/2018 at 13:09
== END ==
PROVIDERS: PCP Student in an Organized Health Care Education/Training Program; Visit Provider Orthopaedic Surgery Orthopaedic Surgery of the Spine
DX: M51.16 Intervertebral disc disorders with radiculopathy, lumbar region (principal); M48.061 Spinal stenosis, lumbar region without neurogenic claudication; M47.26 Other spondylosis with radiculopathy, lumbar region; Z98.1 Arthrodesis status
CPT/HCPCS: 72100

== ENCOUNTER → 2018-07-21 07:38 | Outpatient (CLI) | payer OTHER, SELFPAY ==
[2018-05-25 12:28] VITALS: BMI 28.5
--- NOTE | 2018-07-21 07:41 | DI.US.S_ITS ---
PROCEDURE: US SCROTUM INDICATIONS: L Scrotal mass TECHNIQUE: Real-time scanning was performed of the scrotum and testicles, with image documentation. Color and pulse Doppler interrogation was performed of both testicles. COMPARISON: [facility], , US SCROTUM, 04/20/2018, 13:51. FINDINGS: Right: Testicle is normal in size at 4.7 x 3.3 x 2.3 cm, and homogenous in echotexture. Nonspecific heterogeneity involving the tail of the epididymis is noted. The vascularity to the epididymis is within normal limits. No varicoceles. There is a small hydrocele. Nonspecific thickening of the scrotal wall is evident. Left: Testicle is normal in size at 1 x 2.8 x 2.3 cm, and homogeneous in echotexture. Prominent epididymal heterogeneity is identified without increased vascularity evident. Small calcification is identified within this region. Focal enlargement involving the head of the epididymis is identified with the possible 1.5 cm solid lesion versus more prominently heterogeneous epididymal tissue. No varicoceles. There is a small hydrocele. Nonspecific thickening of the scrotal wall is present. Doppler: Color and pulse Doppler demonstrate normal and symmetric arterial flow in both testicles. IMPRESSION: 1. The palpable abnormality of the left scrotum appears to be related to focal enlargement of the left epididymal head. While no discrete mass is evident, there is suggestion of a possible solid abnormality involving the left epididymis. This appearance could potentially be related to previous vasectomy. A six-month followup testicular ultrasound is recommended. 2. No evidence of a testicular mass, testicular torsion, or epididymal orchitis. Dictated by: Ej Mcmahan M.D. on 07/21/2018 at 10:11 Approved by: Ej Mcmahan M.D. on 07/21/2018 at 10:20
== END ==
PROVIDERS: PCP Student in an Organized Health Care Education/Training Program; Visit Provider Student in an Organized Health Care Education/Training Program
DX: N50.9 Disorder of male genital organs, unspecified (principal)
CPT/HCPCS: 76870

== ENCOUNTER → 2018-10-26 09:07 | Outpatient (CLI) | payer OTHER, SELFPAY ==
[2018-05-25 12:28] VITALS: BMI 28.5
[2018-10-26 10:11] LABS: Cholesterol 186 mg/dL (140-199); HDL Cholesterol 40 mg/dL (40-60); LDL Cholesterol Calculated 68 mg/dL (<100); Triglycerides 390 mg/dL (35-150)
[2018-10-26 10:12] LABS: Hemoglobin A1C% w Est Avg Glu 5.7 % (4.0-6.0)
[2018-10-26 10:28] LABS: Vitamin D 25 Hydroxy (D3) 29.2 ng/mL (30.0-100.0)
== END ==
PROVIDERS: PCP Student in an Organized Health Care Education/Training Program; Visit Provider Student in an Organized Health Care Education/Training Program
DX: E55.9 Vitamin D deficiency, unspecified (principal); E78.1 Pure hyperglyceridemia; E11.9 Type 2 diabetes mellitus without complications
CPT/HCPCS: 36415; 80061; 82306; 83036

== ENCOUNTER → 2018-11-10 15:32 | Outpatient (CLI) | payer OTHER, SELFPAY ==
[2018-05-25 12:28] VITALS: BMI 28.5
--- NOTE | 2018-11-10 | DI.MRI.S_ITS ---
PROCEDURE: MR LUMBAR SPINE WO CON INDICATIONS: Intervertebral disc disorders with radiculopathy, TECHNIQUE: Noncontrast sagittal T1 spin echo and T2 fast echo, sagittal STIR, axial T1 and T2 fast spin echo through the lumbar spine. In cases with scoliosis, additional coronal T2 fast spin echo may be performed. COMPARISON: [facility], CR, XR LUMBAR SPINE 2-3V, 07/02/2018, 11:34. FINDINGS: Image quality: Excellent. Alignment and Curvature: There is normal bony alignment. There is normal lumbar spine curvature. Bones: Postsurgical changes compatible with L2-L3 posterior and interbody fusion are stable compared to prior plain film radiograph series. Postsurgical changes compatible with left L2-L3 laminotomy. Mild reactive endplate changes noted adjacent to the L2-L3 disc. No acute vertebral body compression fractures. Spinal Cord: Conus medullaris terminates at the T12 level. Visualized cord demonstrates normal signal and size. Paraspinous Soft Tissues: No paravertebral masses. L1-L2: Normal appearance. L2-L3: Status post fusion and left laminotomy. No central stenosis. No neural foraminal narrowing. No neural impingement. L3-L4: Slight loss of the signal. Minimal, diffuse disc bulge. No central stenosis. No neural foraminal narrowing. No neural impingement. Focal high intensity zone noted in the left foraminal annulus compatible with a fissure. L4-L5: Loss of disc signal. Mild, diffuse disc bulge. No central stenosis. Mild bilateral neural foraminal narrowing. No neural impingement. Focal high intensity zone is noted the left foraminal annulus compatible with a fissure. L5-S1: Loss of disc signal. Mild, diffuse disc bulge. Mild bilateral facet hypertrophy. No central stenosis. Mild left neural foraminal narrowing. No neural impingement. Focal high intensity zones noted in the right and left foraminal annulus compatible with fissures. IMPRESSION: 1. Status post L2-L3 fusion. 2. Mild L3-L4, L4-L5 and L5-S1 degenerative disc disease. 3. Mild L5-S1 facet arthropathy. 4. No central stenosis. 5. Mild bilateral L4-L5 neural foraminal narrowing. Mild left L5-S1 neural foraminal narrowing. 5. No neural impingement. 6. L3-L4, L4-L5 and L5-S1 disc annulus fissures. Dictated by: Adeline Callaway MD, PhD on 11/10/2018 at 19:25 Approved by: Adeline Callaway MD, PhD on 11/10/2018 at 19:31
--- NOTE | 2018-11-10 | DI.MRI.S_ITS ---
PROCEDURE: MR HIP RT WO CON INDICATIONS: Right hip pain TECHNIQUE: Noncontrast coronal T1 spin echo and STIR through the bony pelvis. Coronal and axial T2 fast spin echo with fat saturation, sagittal T1 spin echo, and oblique axial T2 fast spin echo with fat saturation through the hip. COMPARISON: None. FINDINGS: Image quality: Excellent. Bones and joints: Bone marrow of the pelvic ring and proximal femurs show normal signal throughout. No intraosseous lesions or fractures. No avascular necrosis of the femoral heads. The visualized lower lumbar spine appears normally aligned. Tendons and ligaments: The gluteus medius and minimus tendons appear intact, without associated muscle atrophy. There is a mild thickening of the gluteus medius or tendon with increased internal signal compatible with mild tendinosis. The nearby proximal iliotibial band also appears intact. The iliopsoas tendon appears intact, without adjacent bursal fluid collections or evidence for impingement syndrome. The origin of the hamstring tendon is intact at the ischial tuberosity, as well as the associated sacrotuberous ligament. The straight and reflected heads of the rectus femoris muscle origin appear intact, as well as the conjoint tendon. The ligamentum teres appears intact where visualized. Labrum and cartilage: Small tear of the superior and posterior acetabular labrum noted. (Series 6, images 7, 6; series 7, images 16, 19) Cartilage surface of the femoral head appears of normal thickness. The alpha angle of the femur is within normal limits at less than 55 degrees. Soft tissues: Visualized muscles demonstrate normal bulk and internal signal. Quadratus femoris muscle demonstrates no internal edema to suggest ischiofemoral impingement. The proximal sciatic neurovascular bundle appears normal adjacent to the hamstring tendons. No free pelvic fluid. Bladder wall thickness is normal. Genitourinary structures and bowel loops appear normal where visualized. IMPRESSION: 1. Tear of the superior and posterior acetabular labrum. 2. Mild gluteus medius tendinosis. Dictated by: Adeline Callaway MD, PhD on 11/10/2018 at 19:31 Approved by: Adeline Callaway MD, PhD on 11/11/2018 at 10:25
== END ==
PROVIDERS: PCP Student in an Organized Health Care Education/Training Program; Visit Provider Physical Medicine & Rehabilitation
DX: M25.551 Pain in right hip (principal); S73.191A Other sprain of right hip, initial encounter; M51.16 Intervertebral disc disorders with radiculopathy, lumbar region; M51.17 Intervertebral disc disorders with radiculopathy, lumbosacral region; M48.061 Spinal stenosis, lumbar region without neurogenic claudication; M48.07 Spinal stenosis, lumbosacral region; M47.27 Other spondylosis with radiculopathy, lumbosacral region; Z98.1 Arthrodesis status
CPT/HCPCS: 72148; 73721

== ENCOUNTER 2019-02-18 10:39 | Observation (INO) | payer OTHER, SELFPAY ==
[2018-05-25 12:28] VITALS: BMI 28.5
[2019-02-18] VITALS (11 sets, daily range): BP systolic 137–181; BP diastolic 85–121; PULSE 55–87; RESP 16–20; TEMP 36.1–36.9; O2SAT 93–99; BMI 31.8
--- NOTE | 2019-02-18 10:46 | PC.NURSE ---
Addendum entered by Ashly Plata R.N. 02/18/19 10:47: pt action plan includes therapist here and in [place]. Original Note: pt states he often has thoughts of harming self. but pt states he has an action plan for those thoughts, due to his PTSD.
--- NOTE | 2019-02-18 10:48 | DI.RAD.S_ITS ---
PROCEDURE: XR CHEST 1V INDICATIONS: chest pain TECHNIQUE: One view of the chest was acquired. COMPARISON: [facility], CR, XR CHEST 2V, 05/21/2018, 11:24. FINDINGS: Surgical changes and devices: None. Lungs and pleura: There is a granular shaped density identified within the right infrahilar region, which probably is unchanged since the previous exam and likely represents minimal areas of atelectasis. Linear increased attenuation is evident at the left costophrenic angle, also likely unchanged. No large effusion or pneumothorax is evident. Mediastinum: Mediastinal contours appear normal. Heart size is normal. Bones and chest wall: No suspicious bony lesions. Overlying soft tissues appear unremarkable. IMPRESSION: Stable chest. No acute cardiopulmonary process is evident. Dictated by: Ej Mcmahan M.D. on 02/18/2019 at 10:14 Approved by: Ej Mcmahan M.D. on 02/18/2019 at 10:19
[2019-02-18 11:28] LABS: INR 0.9 (0.9-1.3); Prothrombin Time 10.2 SECONDS (10.1-12.7)
[2019-02-18 11:29] LABS: Add Manual Diff / Slide Review NO; Basophils Absolute Auto 0 /uL (0-100); Basophils Percent Auto 0.4 % (0-2); Eosinophils Absolute Auto 100 /uL (0-450); Eosinophils Percent Auto 1.1 % (2-4); Hematocrit 44.5 % (41-53); Hemoglobin 15.3 g/dL (13.5-17.5); Lymphocytes Absolute Auto 1300 /uL (1100-4500); Lymphocytes Percent Auto 25.3 % (25-40); Mean Corpuscular HGB Conc 34.4 % (30-36); Mean Corpuscular Hemoglobin 30.4 PG (26-34); Mean Corpuscular Volume 88.3 fL (80-100); Monocytes Absolute Auto 400 /uL (0-900); Monocytes Percent Auto 7.4 % (3-14); Neutrophils Absolute Auto 3400 /uL (1500-7000); Neutrophils Percent Auto 65.8 % (50-75); Platelet Count 176 X10^3/uL (150-400); Red Blood Cell Count 5.04 X10^6/uL (4.5-5.9); Red Cell Distribution Width 13.5 % (11.6-14.8); White Blood Cell Count 5.1 X10^3/uL (4.5-11.0)
[2019-02-18 11:31] LABS: PTT Partial Thromboplastin Tim 34 SECONDS (26.4-36.2)
[2019-02-18 11:33] LABS: Alanine Aminotransferase 41 IU/L (21-72); Albumin 4.7 g/dL (3.5-5.0); Albumin Globulin Ratio 1.6 (1.0-2.8); Alkaline Phosphatase 50 U/L (38-126); Aspartate Aminotransferase 39 IU/L (17-59); Bilirubin Total 0.7 mg/dL (0.2-1.3); Blood Urea Nitrogen 21 mg/dL (9-20); Calcium 9.5 mg/dL (8.4-10.2); Carbon Dioxide 24 mmol/L (22-32); Chloride 103 mmol/L (98-107); Creatine Kinase 100 U/L (55-170); Estimated Glomerular Filt Rate > 60.0 mL/min (>60); Glucose 129 mg/dL (70-100); HEMOLYSIS < 15 (0-50); Lipase 57 U/L (23-300); Potassium 4.3 mmol/L (3.4-5.1); Sodium 140 mmol/L (137-145); Total Protein 7.7 g/dL (6.3-8.2)
[2019-02-18 11:44] LABS: Troponin I < 0.012 ng/mL (0.01-0.034)
[2019-02-18] MEDS: ASPIRIN 81 MG CHEW TAB 324 MG PO (11:53)
[2019-02-18] MEDS: NITROGLYCERIN 0.4 MG SL TAB SL ×2 (11:55→12:03)
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
[2019-02-18 12:48] LABS: B Type Natriuretic Peptide < 100 (<100)
[2019-02-18] MEDS: ALBUTEROL 2.5 MG/3 ML NEB (ADULT) INH (12:55)
[2019-02-18] MEDS: ACETAMINOPHEN 325 MG TABLET 650 MG PO ×3 (13:46→20:38)
--- NOTE | 2019-02-18 13:46 | PC.NURSE ---
pt reports headache, dr. lucas aware, orders rec'd and noted.
[2019-02-18] MEDS: GABAPENTIN 600 MG TABLET PO ×2 (17:43→20:34)
[2019-02-18] MEDS: IBUPROFEN 600 MG TABLET PO ×2 (17:43→20:38)
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
[2019-02-18] MEDS: SODIUM CHLORIDE 0.45% 1,000 ML 100 ML IV (18:49)
[2019-02-18 19:50] LABS: Hemoglobin A1C% w Est Avg Glu 5.8 % (4.0-6.0)
[2019-02-18 19:56] LABS: Creatine Kinase 83 U/L (55-170)
[2019-02-18 19:57] LABS: Cholesterol 174 mg/dL (140-199); HDL Cholesterol 36 mg/dL (40-60); LDL Cholesterol Calculated 72 mg/dL (<100); Triglycerides 330 mg/dL (35-150)
[2019-02-18 20:09] LABS: Troponin I < 0.012 ng/mL (0.01-0.034)
[2019-02-18 20:34] LABS: Thyroid Stimulating Hormone 1.02 uIU/mL (0.47-4.68)
[2019-02-18] MEDS: LISINOPRIL 20 MG TABLET PO (20:34)
[2019-02-18] MEDS: ONDANSETRON 4 MG/2 ML INJ IV (20:34)
[2019-02-18] MEDS: SIMVASTATIN 40 MG TABLET PO (20:35)
--- NOTE | 2019-02-19 00:08 | PC.NURSE ---
Addendum entered by Bernarda Barajas R.N. 02/19/19 04:57: Has slept most of shift. Complains of generalized achiness in addition to 5/10 headache; medicated with Tylenol. Denies chest pain. Original Note: Patient is alert and oriented. Breath sounds CTA with RA sat of 96%. HRR and was SR w/1st degree AVB on telemetry. BP elevated at 154/100 which is consistent with previous readings; P[employer]IC PRESS M[employer]DER notified with no order changes at this time. Denies nausea. BT present and is passing flatus. Denies dysuria, frequency or urgency. Able to turn self in bed and is steady on feet. Denies any chest pain. Is schedule to have stress test in a.m. so per PLASTIC PRESS MOLDER will be NPO except for water (may have meds); patient made aware and verbalizes understanding. Fall risk score is moderate; patient verbalizes agreement not to get out of bed without staff SBA.
[2019-02-19] MEDS: SODIUM CHLORIDE 0.45% 1,000 ML 100 ML IV (04:53)
[2019-02-19] MEDS: ACETAMINOPHEN 325 MG TABLET 650 MG PO (04:55)
[2019-02-19 06:00] VITALS: BP 147/107; PULSE 60; RESP 16; TEMP 36.2; O2SAT 97
[2019-02-19 08:05] VITALS: BP 135/83; PULSE 66; RESP 16; TEMP 36.8; O2SAT 96
[2019-02-19 08:13] VITALS: BP 135/83; PULSE 66
[2019-02-19] MEDS: ENOXAPARIN 40 MG/0.4 ML SYRINGE SUBCUT (08:13)
[2019-02-19] MEDS: GABAPENTIN 600 MG TABLET PO (08:13)
[2019-02-19] MEDS: LISINOPRIL 20 MG TABLET PO (08:13)
[2019-02-19] MEDS: ASPIRIN EC 81 MG TABLET PO (08:14)
[2019-02-19 08:38] VITALS: O2SAT 97
[2019-02-19 12:15] VITALS: BP 165/101; PULSE 64; RESP 18; TEMP 36.6; O2SAT 95
--- NOTE | 2019-02-19 13:28 | CM.DPC ---
DCP Cont: Went in to speak to this patient about his BUTT form. He did allow me to explain the form, but then asked what would happen if I were just leave? I informed the patient he should speak to the MD or his RN before doing that. He then asked can't I just have this stress test outpatient, since I'm an observation patient? I again stated that he should speak to his MD tool and die supervisor. I left and informed CATHLEEN Singleton of our conversation. Patient refused to sign the BUTT stating I'm not processing any of this, I just want to leave. I did notate this on the BUTT form. Evelin Ayala, Care Manager Food Safety
--- NOTE | 2019-02-19 14:44 | PM.DS.1 ---
History of Present Illness History of Present Illness Date Patient Seen: 02/18/19 Chief complaint: High Blood pressure,Dizziness, tightness in chest Narrative: Written by Dr. Lyman: The patient is a 48-year-old male with a history of hypertension, type 2 diabetes, hyperlipidemia, PTSD, chronic anxiety, who was in his usual state of health until today when he developed substernal chest pressure. Patient reports that over the past month he has noted increased heart 8 of about 120. He has had some fluttering in his chest. Had intermittent chest pressure which is resolved. Today however he had chest pressure over the left side of his chest that lasted 2 hours. This was rated as 5/10 in intensity. He had some associated nausea with it but no diaphoresis. He had no shortness of breath. The patient was seen in the [facility] behavioral [facility] clinic and found to be hypertensive with a blood pressure of 180 systolic. He was sent to the emergency room for evaluation. In the emergency department the patient had an EKG which showed no ST T wave abnormalities. His initial troponin was negative. The patient was admitted to the hospital for evaluation of chest pain. The patient does not smoke. He drinks intermittent alcohol rarely. He does report having some panic and anxiety but states the palpitations that he has experienced here are different. He did receive sublingual nitro in the emergency room. He has had a significant headache since then. During the exam the patient had an episode of nausea and emesis. Next. If he currently has a headache. But he denies any blurred vision double vision. He has had no fever chills. He has had no swelling in his ankles. He denies any hematemesis melena or bright red blood per rectum. He has had no dysuria hematuria or pyuria patient has had back surgery previous it has occasional back pain Patient is admitted to the hospital for evaluation of chest pain. Discharge Providers Provider Date of admission: 02/18/19 14:31 Discharge Date: 02/19/19 Primary care physician: Ramy Marquez MD Discharge provider: Ashlyn Carrillo DO Summary Hospital Course Discharge Diagnosis: 1. Acute chest pressure, present on admission. Resolved. 2. Hypertension, poorly controlled, chronic, present on admission. Stable. 3. Type diabetes mellitus type II, non-insulin using, present on admission. Stable and almost in remission. 4. Hyperlipidemia, chronic, present on admission. Stable. 5. PTSD, chronic, present on admission. Stable. Hospital Course: Sav Rush 48-year-old male with a history of hypertension, type 2 diabetes, hyperlipidemia, PTSD, chronic anxiety, who was in his usual state of health until today when he developed substernal chest pressure. 1. Acute chest pressure, present on admission. Resolved. -Patient has multiple cardiac risk factors including: Hypertension, hyperlipidemia, diabetes mellitus type II. -EKG demonstrated normal sinus rhythm without any acute ischemic changes such as ST elevation or depression. -Serial troponin x2 are negative. -Received aspirin 325 mg in ED. Continued aspirin 81 mg daily and simvastatin 40 mg daily at bedtime for cardiovascular protection. -Chest x-ray is negative. -Ordered morphine as needed for chest pressure/pain. Nitroglycerin caused significant headache and avoided further use. -Risk stratified with hemoglobin A1c 5.8% and a fasting lipid panel which demonstrated: Total cholesterol 174, triglycerides significantly elevated at 330, LDL 72, and HDL 36. -Ordered exercise stress test which was not obtained due to scheduling conflict. Recommend outpatient exercise stress test. 2. Hypertension, poorly controlled, chronic, present on admission. Stable. -Continued lisinopril 20 mg twice daily. Patient continued to be intermittently hypertensive but likely secondary to significant migraine headache from nitroglycerin administration, as well as, anger as patient was upset that he did not receive his exercise stress test and had been NPO overnight. Ordered labetalol 10 mg IV as needed for SBP > 180 mmHg. Consider adding a beta-lillian outpatient per PCP if continues to be hypertensive 3. Type diabetes mellitus type II, non-insulin using, present on admission. Stable and almost in remission. -Hemoglobin A1c 5.8% indicative that his diabetes is now at a pre-diabetic stage and almost in remission. -Held metformin and restarted at time of discharge. -Continued gabapentin 600 mg 3 times daily. -Continued heart healthy/carbohydrate consistent diet. 4. Hyperlipidemia, chronic, present on admission. Stable. -Continued simvastatin 40 mg daily at bedtime. 5. PTSD, chronic, present on admission. Stable. Exam Vital Signs (past 8 hours): - 02/19/19 08:05 02/19/19 08:13 02/19/19 08:38 Temperature 98.3 F Pulse Rate 66 66 Respiratory Rate 16 Blood Pressure 135/83 135/83 Pulse Oximetry 96 97 02/19/19 12:15 Temperature 97.9 F Pulse Rate 64 Respiratory Rate 18 Blood Pressure 165/101 H Pulse Oximetry 95 Oxygen Delivery Method Room Air Oxygen Flow Rate 0 Narrative Exam Narrative: Patient refused physical examination and physical exam was obtained from observation: General: Middle-aged gentleman lying in bed and in no acute distress, well-developed, well-nourished, agitated/irritated. HEENT: Normocephalic, atraumatic. External ears without defect. Photosensitive. Pupils equal and round. Neck: Supple with full range of motion. No jugular venous distension. Extremities: No clubbing, cyanosis, or edema. Psychiatric: Agitated/irritable mood and flat affect. Appears to be alert and oriented to person, place, and time. Objective Labs Result Diagrams: 02/18/19 11:11 02/18/19 11:11 Labs: Laboratory Results - last 24 hr 02/18/19 02/18/19 02/18/19 19:37 19:37 19:37 Hemoglobin A1c 5.8 Total Creatine Kinase 83 CK-MB (CK-2) TNP CK-MB (CK-2) Rel Index TNP Troponin I < 0.012 Triglycerides 330 H Cholesterol 174 LDL Cholesterol, Calc 72 HDL Cholesterol 36 L TSH 02/18/19 19:37 Hemoglobin A1c Total Creatine Kinase CK-MB (CK-2) CK-MB (CK-2) Rel Index Troponin I Triglycerides Cholesterol LDL Cholesterol, Calc HDL Cholesterol TSH 1.02 Discharge Plan Discharge Plan Patient Disposition: Home Discharge comment: You are being discharged home. Your cardiac enzymes and EKG did not demonstrate any changes consistent with heart attack or impending heart attack. Due to your cardiac risk factors recommend an exercise stress test outpatient which unfortunately due to scheduling conflict was not able to be done while you were in the hospital. Please follow-up with your primary care provider, Dr. Marquez, in the next 1 week regarding your hospitalization. Your triglycerides were elevated and recommend lifestyle modification including diet and exercise. The [place] [employer] recommends 150 minutes of moderate intensity cardiovascular exercise per week. Please start with small obtainable goals and slowly work your way to 150 minutes. You were provided a handout on Mediterranean diet. Your blood pressure was controlled at times and mildly elevated at other times during your hospitalization for which lifestyle modification (i.e. diet and exercise) is again recommended and you were provided a handout on DASH diet. Recommend continued monitoring of your blood pressure outpatient with your PCP and if your blood pressure is consistently elevated you may need to be started on another blood pressure medication. You were prescribed aspirin 81 mg daily to help provide heart protection. The FDA recommends against ibuprofen use as this can increase your risk of heart attack and stroke. Discharge Med Rec/Prescriptions Prescriptions: New aspirin 81 mg Tablet,Delayed Release (Dr/Ec) 81 mg PO DAILY Qty: 30 RF: 0 Continued coenzyme Q10 [Co Q-10] 100 MG capsule 100 mg PO BEDTIME Qty: 0 RF: 0 simvastatin 40 mg tablet 40 mg PO BEDTIME Qty: 30 RF: 11 lisinopril [Prinivil] 20 mg tablet 20 mg PO BID Qty: 180 RF: 1 metformin 1,000 mg tablet 1,000 mg PO BIDCC Qty: 180 RF: 0 gabapentin 600 mg tablet 600 mg PO TID Qty: 270 RF: 1 acetaminophen [Tylenol Extra Strength] 500 mg tablet 500 mg PO Q6H PRN (Reason: Back Pain) RF: 0 ibuprofen 200 mg tablet 400 mg PO Q6H PRN (Reason: Back Pain) RF: 0 Probiotic 1 cap PO QPM RF: 0 Follow up/Referrals: Ramy Marquez MD [Primary Care Provider] - 3-5 Days Provider Discharge Instructions Diet: Carb-consistent/Diabetic, Low-fat, Low-sodium and Low-cholesterol Activity: Activity as tolerated Visit Report/Discharge Packet Instructions: The Mediterranean Diet and Good Health, The DASH Diet Discharge Data Primary Care Provider: Ramy Marquez Attending Provider: Morenita Lyman Admit Date/Time: 02/18/19 14:31
--- NOTE | 2019-02-19 15:04 | PC.NURSE ---
Spole to a very frustrated patient about his being unable to have a stress test - one that he was made an OBS patient versus being D/C from the ED. He is mostly upset about the lack of communication about his plan of care. Dr. Carrillo verbally ordered pain meds, nausea meds and cardiac diet to make him more comfortable, but he refused because he was just too mad and would throw it up. I aplogized and calmed him as best as I was able, but he is frustrated about what he sees as our lack of action. He didn't seem to understand that we were monitoring him on tele and watching him due to his risk factors. He was fixated on the lack of stress test.
--- NOTE | 2019-02-19 15:10 | PC.NURSE ---
Discussed visit with patient, reviewed discharge and follow up care, counseled on s/s of worsening condition.
--- NOTE | 2019-02-19 15:38 | CM.DANOTE ---
Discharge Planning/Care Management DCP: assessment: case was received today and discussed in Team Rounds. Dr. Carrillo stated she was putting in a d/c to home order but would not finalize this until the stress test had been completed. Planned to check in later with pt after the test. Pt is a 48 year old male who admitted yesterday afternoon to care of hospitalist team. PCP: Ramy Marquez Payer: [facility] Admission status: OBS: per UR RN Ganesh. A check in earlier this afternoon revealed that CM Dice Person was in room with pt discussing his distress re the question of when the stress test would be completed. It was then confirmed that the stress test would not take place today Spoke with Rylie who reports pt is going home now and with no need for further check in. She states her note is in RN NOTES (not under CM) as she was only manager stone on the acute care unit today. See her note : 02/19: 1504 Pt going home now. CM Discharge Assessment Start: 02/19/19 15:35 Freq: Status: Active Protocol: Document 02/19/19 15:36 ITV (Rec: 02/19/19 15:38 ITV [id number]) Discharge Planning Assessment Advance Directives? Yes Advance Directives on File No Prior Living Arrangements House Discharge Plan Home Review Status In Process
== END 2019-02-19 15:15 | disposition home or self-care (01) ==
LOC: ED 14:01 → AC 14:31
PROVIDERS: Admitting Provider Internal Medicine; Emergency Provider Emergency Medicine; PCP Student in an Organized Health Care Education/Training Program; Visit Provider Internal Medicine
DX: R07.89 Other chest pain (principal); F43.12 Post-traumatic stress disorder, chronic; E78.5 Hyperlipidemia, unspecified; E11.9 Type 2 diabetes mellitus without complications; Z79.84 Long term (current) use of oral hypoglycemic drugs; I10 Essential (primary) hypertension
CPT/HCPCS: 36415; 71045; 80053; 80061; 82550; 82962; 83036; 83690; 83880; 84443; 84484; 85025; 85610; 85730; 93005; 93016; 93017; 93018; 94640; 96361; 96372; 96374; 99283; 99285; G0378; J1650; J2405; J7050; J7613

== ENCOUNTER → 2019-03-17 10:48 | Outpatient (CLI) | payer OTHER, SELFPAY ==
[2019-02-18 17:23] VITALS: BMI 31.8
--- NOTE | 2019-03-26 08:01 | P.HOLT.S_ITS ---
Force Dispatcher Report Referral & Results Date Patient Seen: 03/17/19 Requesting provider: Ramy Marquez Indication: Palpitations Duration of monitoring (days): 3 Diary information: There were 47 patient triggered events, these were associated with sinus rhythm, PACs, and PVCs Data: Minimum heart rate identified was 51 beats per minute at 08:10 on 03/20/2019 Maximum heart rate was 142 beats per minute at 12:59 on 03/18/2019 Less than 1% of identified beats were supraventricular ectopic in origin Approximately 1.6% of identified beats were ventricular ectopic in origin including including a 7.2nd run of ventricular trigeminy Impression: Patient with both PACs and PVCs but given the frequency of PVCs, symptoms of palpitations more likely related to PVCs rather than PACs, but patient may be experiencing both based on triggered events No other significant dysrhythmias identified Clinical correlation suggested
== END ==
PROVIDERS: PCP Student in an Organized Health Care Education/Training Program; Visit Provider Student in an Organized Health Care Education/Training Program
DX: R00.2 Palpitations (principal)
CPT/HCPCS: 0296T; 0298T

== ENCOUNTER → 2019-04-16 08:01 | Outpatient (CLI) | payer OTHER, SELFPAY ==
[2019-02-18 17:23] VITALS: BMI 31.8
--- NOTE | 2019-04-16 08:03 | DI.ECHO.S_ITS ---
[facility] +---------+ [facility] +---------+ : : [address] [place] : : : : [id number] : : : : Phone: [phone]+ Echocardiogram Report + + :Name: KARLIE ARRIAZA Study Date: 04/16/2019 Height: 72 in : :[facility] Exam Location: [facility] Weight: 235 lb : : Gender: Male BSA: 2.3 m2 : :: 1970 Age: 48 yrs BP: 122/82 mmHg: :Reason For Study: PVC's : : Performed By: Anne-Marie Berg : :Referring: TERI CALLAHAN : + + Interpretation Summary Mild-moderate concentric left ventricular hypertrophy with ejection fraction 60-65%. Normal right ventricle and both atria. No valvular abnormality. The ascending aorta is at the upper limits of normal in size. Procedure: A two-dimensional transthoracic echocardiogram with color flow and Doppler was performed. The study quality was technically adequate. There is no prior echocardiogram noted for this patient. Most of the acoustic windows were suboptimal, but the best imaging was obtained from the parasternal window. The patient was in normal sinus rhythm during the exam. Left Ventricle: The left ventricle is normal in size. There is mild-moderate concentric left ventricular hypertrophy. The ejection fraction is estimated to be 60-65%. There are no focal wall motion abnormalities. Diastolic parameters suggest probable normal left ventricular diastolic function and normal filling pressures. Right Ventricle: The right ventricle is normal in size and function. Atria: Both atria are normal in size. Mitral Valve: The mitral valve is normal in structure and function. There is trace mitral regurgitation. Aortic Valve: The aortic valve is trileaflet. The aortic valve opens well. No aortic regurgitation is present. Tricuspid Valve: The tricuspid valve is normal in structure and function. There is a trace or physiologic amount of tricuspid regurgitation. Right ventricular systolic pressure is estimated to be at least 28 mmHg plus the clinically estimated CVP which cannot be estimated on this exam. Pulmonic Valve: The pulmonic valve is not well seen, but is grossly normal. There is a trace or physiologic amount of pulmonic regurgitation. Great Vessels: The ascending aorta is at the upper limits of normal in size. The inferior vena cava was not well visualized. Pericardium/ Pleura There is no pericardial effusion. There is no pleural effusion. MMode/2D Measurements & Calculations LVIDd: 4.5 cm LVOT diam: 2.4 cm LVIDs: 2.7 cm asc Aorta Diam: 3.8 cm FS: 39.9 % Ao Arch Diam (Prox Trans): 3.0 cm IVSd: 1.5 cm LVPWd: 1.3 cm LV glynn. diameter/BSA (cm/m^2): 2.0 LV sys. diameter/BSA (cm/m^2): 1.2 LA A2 area: 15.0 cm2 RA long axis: 4.0 cm LA A4 area: 22.0 cm2 RA area: 11.5 cm2 LA length (vol): 5.3 cm RA vol: 28.2 ml LA vol: 52.9 ml RA : 12.4 ml/m2 LA vol index: 23.2 ml/m2 TAPSE: 2.2 cm Doppler Measurements & Calculations Ao V2 max: 105.3 cm/sec LVOT Max Faizan: 100.0 cm/sec Ao V2 mean: 80.4 cm/sec LV V1 max P.0 mmHg Ao max P.4 mmHg LV V1 VTI: 21.1 cm Ao mean P.7 mmHg MALU(I,D): 4.4 cm2 Ao V2 VTI: 22.7 cm MALU(V,D): 4.5 cm2 sev ratio: 0.93 MALU indexed to BSA (cm^2/m^2): 1.9 MV E max faizan: 50.8 cm/sec TR max faizan: 264.1 cm/sec MV A max faizan: 52.2 cm/sec TR max P.9 mmHg MV E/A: 0.97 PA V2 max: 57.2 cm/sec Med Peak E' Faizan: 8.1 cm/sec PA V2 mean: 43.4 cm/sec E/E' med: 6.3 PA mean P.81 mmHg Lat Peak E' Faizan: 9.4 cm/sec PA pr(Accel): 29.1 mmHg E/E' lat: 5.4 E/e' average: 5.8 MV dec time: 0.21 sec SV(LVOT): 99.5 ml Electronically signed by: Mary Anne Olivier on Reading Physician:04/16/2019 04:21 PM
== END ==
PROVIDERS: PCP Student in an Organized Health Care Education/Training Program; Visit Provider Student in an Organized Health Care Education/Training Program
DX: I49.3 Ventricular premature depolarization (principal)
CPT/HCPCS: 93306

== ENCOUNTER → 2019-05-06 07:17 | Outpatient (CLI) | payer OTHER, SELFPAY ==
[2019-02-18 17:23] VITALS: BMI 31.8
--- NOTE | 2019-05-06 08:21 | PM.TREADMILL ---
Cardiac Stress Test Report Referral & Results Date Patient Seen: 05/06/19 Time Patient Seen: 08:00 Requesting provider: Ramy Marquez Indication: Palpitations/frequent PVCs Rest ECG: Occasional PVCs Procedure Note: Today following both written and verbal informed consent, the patient was exercised according to a standard Kishan protocol. The patient exercised for a total of 9 minutes achieving a maximum heart rate of 150. Patient's maximum systolic blood pressure was 160. This was an estimated 9 METs. No signs or symptoms of angina. Occasional PVCs seen on resting EKG but none seen on exercise. No other change in rhythm. FADUMO +10% on the active scale. Normal hemodynamic response to exercise. Impression: Low probability for ischemia. No rhythm disorder evident during exercise. Please note: Actual ECG tracings can be found in the PACS system.
== END ==
PROVIDERS: PCP Student in an Organized Health Care Education/Training Program; Visit Provider Student in an Organized Health Care Education/Training Program
DX: I49.3 Ventricular premature depolarization (principal); R00.2 Palpitations
CPT/HCPCS: 93016; 93017; 93018

== ENCOUNTER → 2020-05-05 14:23 | Outpatient (CLI) | payer MEDICARE, SELFPAY ==
[2019-02-18 17:23] VITALS: BMI 31.8
[2020-05-05 14:59] LABS: Alanine Aminotransferase 60 IU/L (<50); Albumin 4.8 g/dL (3.5-5.0); Albumin Globulin Ratio 1.3 (1.0-2.8); Alkaline Phosphatase 55 U/L (38-126); Aspartate Aminotransferase 60 IU/L (17-59); BUN Creatinine Ratio 17.3 (6-22); Bilirubin Total 0.7 mg/dL (0.2-1.3); Blood Urea Nitrogen 13 mg/dL (9-20); Calcium 10.5 mg/dL (8.4-10.2); Carbon Dioxide 26 mmol/L (22-32); Chloride 101 mmol/L (98-107); Estimated Glomerular Filt Rate > 60.0 mL/min (>60); Globulin 3.6 g/dL (1.7-4.1); Glucose 127 mg/dL (70-100); HEMOLYSIS < 15 (0-50); Potassium 4.4 mmol/L (3.4-5.1); Sodium 137 mmol/L (137-145); Total Protein 8.4 g/dL (6.3-8.2)
[2020-05-05 15:36] LABS: TSH w/ Reflex to FT4 1.83 uIU/mL (0.47-4.68)
== END ==
PROVIDERS: PCP Student in an Organized Health Care Education/Training Program; Referring Provider Student in an Organized Health Care Education/Training Program; Visit Provider Student in an Organized Health Care Education/Training Program
DX: E11.9 Type 2 diabetes mellitus without complications (principal); I10 Essential (primary) hypertension; Z79.899 Other long term (current) drug therapy; F41.0 Panic disorder [episodic paroxysmal anxiety]; R63.5 Abnormal weight gain
CPT/HCPCS: 36415; 80053; 83036; 84443

== ENCOUNTER → 2020-06-05 07:54 | Outpatient (CLI) | payer MEDICARE, SELFPAY ==
[2019-02-18 17:23] VITALS: BMI 31.8
--- NOTE | 2020-06-05 | DI.CT.S_ITS ---
PROCEDURE: CT SINUS SCREEN WO CON INDICATIONS: Chronic pansinusitis TECHNIQUE: Noncontrast 3.0 mm axial images acquired from the frontal sinuses to the mid-sella, with coronal and sagittal reformats. For radiation dose reduction, the following was used: automated exposure control, adjustment of mA and/or kV according to patient size. COMPARISON: None. FINDINGS: Image quality: Excellent. Maxillary Sinuses: No bony remodeling or destruction. Sinuses are clear. Ethmoid Air Cells: No bony remodeling or destruction. Sinuses are clear. Sphenoid Sinuses: No bony remodeling or destruction. Sinuses are clear. Frontal Sinuses: No bony remodeling or destruction. Sinuses are clear. Ostiomeatal Complexes: Ostiomeatal complexes are patent. No Margareth cells. Miscellaneous: Visualized intra-orbital contents are normal. There is septal deviation to the left with spurring. 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 IMPRESSION: 1. No significant sinus disease. 2. 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 3. Septal deviation to the left with spurring. Dictated by: Rashid Ferreira M.D. on 06/05/2020 at 9:45 Approved by: Rashid Ferreira M.D. on 06/05/2020 at 9:49
== END ==
PROVIDERS: PCP Student in an Organized Health Care Education/Training Program; Referring Provider Otolaryngology; Visit Provider Otolaryngology
DX: J32.4 Chronic pansinusitis (principal); J31.0 Chronic rhinitis; J34.89 Other specified disorders of nose and nasal sinuses; J34.2 Deviated nasal septum; J34.3 Hypertrophy of nasal turbinates
CPT/HCPCS: 70486

== ENCOUNTER → 2020-06-16 09:46 | Outpatient (CLI) | payer MEDICARE, SELFPAY ==
[2019-02-18 17:23] VITALS: BMI 31.8
[2020-06-16 10:25] LABS: COVID19 -Nasal RAPID Negative (Negative)
== END ==
PROVIDERS: PCP Student in an Organized Health Care Education/Training Program; Visit Provider Surgery
DX: Z01.812 Encounter for preprocedural laboratory examination (principal); Z20.822 Contact with and (suspected) exposure to COVID-19
CPT/HCPCS: 87635; C9803

== ENCOUNTER 2020-06-19 09:00 | Day surgery (SDC) | payer MEDICARE, SELFPAY ==
[2019-02-18 17:23] VITALS: BMI 31.8
[2020-06-19 09:28] VITALS: BP 155/102; PULSE 66; RESP 18; TEMP 36.4; O2SAT 97; BMI 32.3
[2020-06-19] MEDS: LACTATED RINGERS 1,000 ML 200 ML IV ×2 (09:41→09:49)
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
[2020-06-19] MEDS: ONDANSETRON 4 MG/2 ML INJ IV (10:13)
[2020-06-19] MEDS: MIDAZOLAM 5 MG/5 ML VIAL IV (10:23)
[2020-06-19] MEDS: fentaNYL 250 MCG/5 ML INJ IV (10:23)
--- NOTE | 2020-06-19 10:41 | PM.OP.ENDO ---
Operative Date/Time/Diagnoses Date of procedure: 06/19/20 Time of procedure: 10:41 Pre-op diagnosis: Screening colonoscopy Post-op diagnosis: same Procedure & Clinicians Study performed: Colonoscopy Same procedure as scheduled: Yes Indications: 49-year-old male no prior colonoscopy here for routine screening Surgeon: Jagdeep Hein Procedure Notes Procedure in detail: Medications: Conscious sedation using 7mg IV midazolam and 200mcg IV of fentanyl The history and physical was performed/updated and the patient is ASA class is 2. The procedure was discussed in detail with the patient. Potential risks complications including infection, bleeding, missed diagnosis, perforation, need for surgery, and were explained. Their questions were answered and informed consent was obtained. Patient was brought to the procedure room and placed standard monitoring equipment. The patient's vital signs were monitored continuously throughout the entire procedure. Prior to starting time-out was performed. The patient was placed in the left lateral recumbent position. Procedural sedation was administered. Examination began with a thorough inspection of the perianal area there was no evidence of fissures, fistulae, external hemorrhoids or cutaneous malignancy. The colonoscopy scope was then placed into the anal canal and was advanced to the cecum, which was identified by the ileocecal valve, the appendiceal orifice and the confluence of the taenia. The scope was then slowly withdrawn examining colon thoroughly in all directions, irrigating it of any residual stool. No masses or polyps Sigmoid diverticulosis The patient tolerated the procedure well. They will be discharged once criteria are met. The prep was of good/excellent quality. The withdrawl time was 8minutes. The sedation time was 25minutes. Specimen(s): none sent Complications: none Impression: Normal colonoscopy Post-procedure Recommendations: Colonscopy in 10 years Disposition: same day surgery
[2020-06-19 10:44] VITALS: BP 123/89; PULSE 74; RESP 22; TEMP 36.5; O2SAT 94
[2020-06-19 10:49] VITALS: BP 118/82; PULSE 72; RESP 17; O2SAT 93
[2020-06-19 10:54] VITALS: BP 116/81; PULSE 78; RESP 16; O2SAT 94
[2020-06-19 10:59] VITALS: BP 118/88; PULSE 87; RESP 17; O2SAT 93
[2020-06-19 11:01] VITALS: BP 114/86; PULSE 77; RESP 19; TEMP 37.1; O2SAT 95
== END 2020-06-19 11:20 | disposition home or self-care (01) ==
PROVIDERS: PCP Student in an Organized Health Care Education/Training Program; Referring Provider Surgery; Visit Provider Surgery
PROC: 0DJD8ZZ Inspection of Lower Intestinal Tract, Via Natural or Artificial Opening Endoscopic (ICD-10-PCS; CPT 45378; principal; 2020-06-19 10:00)
DX: Z12.11 Encounter for screening for malignant neoplasm of colon (principal); K57.30 Diverticulosis of large intestine without perforation or abscess without bleeding
CPT/HCPCS: G0121; 99152; 99153; J2250; J2405; J3010

== ENCOUNTER → 2020-06-30 08:31 | Outpatient (CLI) | payer MEDICARE, SELFPAY ==
[2020-06-23 15:08] VITALS: BMI 31.8
--- NOTE | 2020-06-30 | DI.MRI.S_ITS ---
PROCEDURE: MR LUMBAR SPINE WO CON INDICATIONS: Intervertebral disc disorders with radiculopathy, TECHNIQUE: Noncontrast sagittal T1 spin echo and T2 fast echo, sagittal STIR, axial T1 and T2 fast spin echo through the lumbar spine. In cases with scoliosis, additional coronal T2 fast spin echo may be performed. COMPARISON: [facility], MR, MR LUMBAR SPINE WO CON, 04/28/2018, 17:10. [facility], CT, CT LUMBAR SPINE WO CON, 04/13/2018, 8:48. [facility], CR, XR LUMBAR SPINE FLEXION EXTENSION, 06/06/2020, 14:45. [facility], MR, MR LUMBAR SPINE WO CON, 11/10/2018, 16:00. FINDINGS: Image quality: There is artifact associated with the metallic hardware. Alignment and Curvature: There is normal bony alignment. Bone Marrow: Marrow is of normal overall signal. No acute vertebral body compression fractures. Spinal Cord: Conus medullaris terminates at the is T12 level. Visualized cord demonstrates normal signal and size. Paraspinous Soft Tissues: No paravertebral masses. T12-L1: Normal appearance. L1-L2: Normal appearance. L2-L3: Bilateral pedicle screws and vertical fixation rods are seen. There is a disc spacer seen at this level. There is associated susceptibility artifact. No significant neural foraminal or central canal narrowing can be seen. Stable from the prior study. L3-L4: An annular fissure can be seen posteriorly, as on series 2, image 12. Stable from the prior study. L4-L5: The disc height is well-preserved. Loss of disc signal is seen at this level. There is a focal annular fissure seen posteriorly. Mild generalized disc bulge is seen. Mild to moderate facet hypertrophy is seen at this level. Mild to moderate bilateral neural foraminal narrowing can be seen. Mild central canal narrowing is seen. When comparison is made with the prior examination, these findings are similar. L5-S1: The disc height is well-preserved. Loss of disc signal is seen at this level. Mild generalized disc bulge is seen. Moderate facet joint hypertrophy is seen. There is minimal to mild left-sided and no right-sided neural foraminal narrowing seen. No significant central canal narrowing is seen. When comparison is made with the prior examination, these findings are similar. IMPRESSION: Stable study demonstrating L2-L3 fusion change. Annular fissures are noted posteriorly at L2-L3 and L3-L4, as before. Dictated by: Humberto Umaña M.D. on 06/30/2020 at 8:57 Approved by: Humberto Umaña M.D. on 06/30/2020 at 9:06
== END ==
PROVIDERS: PCP Student in an Organized Health Care Education/Training Program; Referring Provider Physical Medicine & Rehabilitation; Visit Provider Physical Medicine & Rehabilitation
DX: M51.16 Intervertebral disc disorders with radiculopathy, lumbar region (principal); M51.17 Intervertebral disc disorders with radiculopathy, lumbosacral region; M47.26 Other spondylosis with radiculopathy, lumbar region; M47.27 Other spondylosis with radiculopathy, lumbosacral region; M48.061 Spinal stenosis, lumbar region without neurogenic claudication; M48.07 Spinal stenosis, lumbosacral region; Z98.1 Arthrodesis status
CPT/HCPCS: 72148

== ENCOUNTER → 2020-08-11 08:23 | Outpatient (CLI) | payer MEDICARE, SELFPAY ==
[2020-06-23 15:08] VITALS: BMI 31.8
[2020-08-11 09:43] LABS: Hemoglobin A1C% w Est Avg Glu 6.5 % (4.0-6.0)
[2020-08-11 09:49] LABS: Alanine Aminotransferase 27 IU/L (<50); Albumin 4.5 g/dL (3.5-5.0); Albumin Globulin Ratio 1.6 (1.0-2.8); Alkaline Phosphatase 38 U/L (38-126); Aspartate Aminotransferase 32 IU/L (17-59); Bilirubin Total 0.3 mg/dL (0.2-1.3); Bilirubin Unconjugated 0.2 mg/dL (0.0-1.1); Globulin 2.8 g/dL (1.7-4.1); HEMOLYSIS 25 (0-50); Total Protein 7.3 g/dL (6.3-8.2)
[2020-08-11 09:52] LABS: Microalbumin Urine Random < 0.6 mg/dL (0-1.6)
== END ==
PROVIDERS: PCP Student in an Organized Health Care Education/Training Program; Referring Provider Student in an Organized Health Care Education/Training Program; Visit Provider Student in an Organized Health Care Education/Training Program
DX: E11.9 Type 2 diabetes mellitus without complications (principal); I10 Essential (primary) hypertension; T39.1X1A Poisoning by 4-Aminophenol derivatives, accidental (unintentional), initial encounter
CPT/HCPCS: 36415; 80076; 82043; 82570; 83036

== ENCOUNTER → 2020-11-27 09:27 | Outpatient (CLI) | payer MEDICARE, SELFPAY ==
[2020-11-03 11:10] VITALS: BMI 31.8
[2020-11-27 11:04] LABS: Hemoglobin A1C% w Est Avg Glu 6.1 % (4.0-6.0)
== END ==
PROVIDERS: PCP Student in an Organized Health Care Education/Training Program; Referring Provider Student in an Organized Health Care Education/Training Program; Visit Provider Student in an Organized Health Care Education/Training Program
DX: E11.9 Type 2 diabetes mellitus without complications (principal)
CPT/HCPCS: 36415; 83036

== ENCOUNTER 2021-03-22 17:29 | Emergency (ER) | payer MEDICARE, SELFPAY ==
[2020-11-03 11:10] VITALS: BMI 31.8
[2021-03-22 17:31] VITALS: BP 182/107; PULSE 67; RESP 18; TEMP 36.6; O2SAT 98; BMI 29.7
--- NOTE | 2021-03-22 18:44 | PC.NURSE ---
Hives resolving, lungs clear, breathing even, unlabored.
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
[2021-03-22 19:21] VITALS: BP 141/93; PULSE 65; O2SAT 96
== END 2021-03-22 19:28 | disposition home or self-care (01) ==
PROVIDERS: Emergency Provider Physician Assistant; PCP Student in an Organized Health Care Education/Training Program
DX: R21 Rash and other nonspecific skin eruption (principal); R07.0 Pain in throat; T50.905A Adverse effect of unspecified drugs, medicaments and biological substances, initial encounter
CPT/HCPCS: 99281

== ENCOUNTER → 2021-04-13 10:19 | Outpatient (CLI) | payer MEDICARE, SELFPAY ==
[2020-11-03 11:10] VITALS: BMI 31.8
== END ==
PROVIDERS: PCP Student in an Organized Health Care Education/Training Program; Visit Provider Nurse Practitioner Family
DX: R30.0 Dysuria (principal)
CPT/HCPCS: 87086

== ENCOUNTER → 2021-04-24 14:41 | Outpatient (CLI) | payer MEDICARE, SELFPAY ==
[2020-11-03 11:10] VITALS: BMI 31.8
--- NOTE | 2021-04-24 14:46 | DI.CT.S_ITS ---
PROCEDURE: CT SINUS SCREEN WO CON INDICATIONS: Chronic pansinusitis TECHNIQUE: Noncontrast 3.0 mm axial images acquired from the frontal sinuses to the mid-sella, with coronal and sagittal reformats. For radiation dose reduction, the following was used: automated exposure control, adjustment of mA and/or kV according to patient size. COMPARISON: [facility], CT, CT SINUS SCREEN WO CON, 06/05/2020, 7:58. FINDINGS: Image quality: Excellent. Sinuses: There is near complete occlusion of the maxillary sinuses bilaterally, right greater than left, extending to the ethmoid air cells, markedly worse when compared to 06/05/2020. Minimal mucosal thickening is present within the frontal and sphenoid sinuses. Ostiomeatal Complexes: Ostiomeatal complexes are occluded bilaterally, new compared to prior exam. Miscellaneous: Visualized intra-orbital contents are normal. There are bilateral middle paradoxical turbinate curvature. There is aeration of the vertical dann bilaterally within the middle turbinates. Mild left nasal septal deviation with spurring. IMPRESSION: 1. Marked interval progression of near complete occlusion of the maxillary and ethmoid sinuses bilaterally as well as the ostiomeatal complexes. Dictated by: Eva Carr M.D. on 04/24/2021 at 16:02 Approved by: Eva Carr M.D. on 04/24/2021 at 16:05
== END ==
PROVIDERS: PCP Student in an Organized Health Care Education/Training Program; Referring Provider Otolaryngology; Visit Provider Otolaryngology
DX: J32.4 Chronic pansinusitis (principal)
CPT/HCPCS: 70486

== ENCOUNTER → 2021-06-07 06:59 | Outpatient (CLI) | payer MEDICARE, SELFPAY ==
[2020-11-03 11:10] VITALS: BMI 31.8
[2021-06-07 08:40] LABS: Hemoglobin A1C% w Est Avg Glu 8.4 % (4.0-6.0)
[2021-06-07 08:53] LABS: BUN Creatinine Ratio 18.5 (6-22); Blood Urea Nitrogen 15 mg/dL (9-20); Calcium 9.8 mg/dL (8.4-10.2); Carbon Dioxide 24 mmol/L (22-32); Chloride 103 mmol/L (98-107); Cholesterol 218 mg/dL (140-199); Estimated Glomerular Filt Rate > 60.0 mL/min (>60); Glucose 256 mg/dL (70-100); HDL Cholesterol 30 mg/dL (40-60); HEMOLYSIS < 15 (0-50); Potassium 4.5 mmol/L (3.4-5.1); Sodium 138 mmol/L (137-145)
[2021-06-07 08:53] LABS: Creatinine Urine Random 153.8 mg/dL
[2021-06-07 08:56] LABS: Microalbumi Creatinin Ratio Ur 8.4 ug/mg CR (<30); Microalbumin Urine Random 1.3 mg/dL (0-1.6)
[2021-06-07 09:15] LABS: Triglycerides 1496 mg/dL (35-150)
== END ==
PROVIDERS: PCP Student in an Organized Health Care Education/Training Program; Referring Provider Student in an Organized Health Care Education/Training Program; Visit Provider Student in an Organized Health Care Education/Training Program
DX: E11.9 Type 2 diabetes mellitus without complications (principal); E78.1 Pure hyperglyceridemia; Z51.81 Encounter for therapeutic drug level monitoring
CPT/HCPCS: 36415; 80048; 80061; 82043; 82570; 83036

== ENCOUNTER → 2021-06-28 11:42 | Outpatient (CLI) | payer MEDICARE, SELFPAY ==
[2020-11-03 11:10] VITALS: BMI 31.8
--- NOTE | 2021-06-28 | DI.CT.S_ITS ---
PROCEDURE: CT SINUS SCREEN WO CON INDICATIONS: Chronic pansinusitis TECHNIQUE: Noncontrast 3.0 mm axial images acquired from the frontal sinuses to the mid-sella, with coronal and sagittal reformats. For radiation dose reduction, the following was used: automated exposure control, adjustment of mA and/or kV according to patient size. COMPARISON: [facility], CT, CT SINUS SCREEN WO CON, 04/24/2021, 15:04. [facility], CT, CT SINUS SCREEN WO CON, 06/05/2020, 7:58. FINDINGS: Image quality: Excellent. Maxillary Sinuses: There is subtotal opacification seen involving the maxillary sinuses. The medial matute of the maxillary sinuses are demineralized. Ethmoid Air Cells: Moderate mucosal thickening is seen involving the anterior ethmoid air cells, left worse than right. Areas bony demineralization can be seen. Sphenoid Sinuses: No bony remodeling or destruction. Sinuses are clear. Frontal Sinuses: There is at least moderate left frontal sinus mucosal thickening. No significant right-sided frontal sinus mucosal thickening is seen. No definite bony remodeling changes are seen. Ostiomeatal Complexes: The ostiomeatal complexes are completely occluded by soft tissue thickening. The ostiomeatal complexes are demineralized. Miscellaneous: Visualized intra-orbital contents are normal. There are bilateral dann bullosa seen. Mild leftward nasal septal deviation is seen. IMPRESSION: Paranasal sinus disease is seen, which is overall improved compared to the 04/24/2021 examination. The paranasal sinus involvement is worst within the maxillary sinuses. Areas of bony demineralization are seen, which are consistent with chronic sinusitis. The ostiomeatal complexes are completely occluded by soft tissue thickening and are demineralized. Dictated by: Humberto Umaña M.D. on 06/28/2021 at 11:25 Approved by: Humberto Umaña M.D. on 06/28/2021 at 11:28
== END ==
PROVIDERS: PCP Student in an Organized Health Care Education/Training Program; Referring Provider Otolaryngology; Visit Provider Otolaryngology
DX: J01.01 Acute recurrent maxillary sinusitis (principal); J32.4 Chronic pansinusitis; J34.89 Other specified disorders of nose and nasal sinuses
CPT/HCPCS: 70486

== ENCOUNTER → 2021-07-19 08:10 | Outpatient (CLI) | payer MEDICARE, SELFPAY ==
[2021-07-12 10:16] VITALS: BMI 31.8
[2021-07-19 09:24] LABS: Lipase 235 U/L (23-300); Triglycerides 460 mg/dL (35-150)
[2021-07-20 07:36] LABS: Fructosamine 293 umol/L (0-285)
== END ==
PROVIDERS: PCP Student in an Organized Health Care Education/Training Program; Referring Provider Student in an Organized Health Care Education/Training Program; Visit Provider Student in an Organized Health Care Education/Training Program
DX: E11.9 Type 2 diabetes mellitus without complications (principal); E78.1 Pure hyperglyceridemia
CPT/HCPCS: 36415; 82985; 83690; 84478

== ENCOUNTER → 2021-08-01 14:28 | Outpatient (CLI) | payer MEDICARE, SELFPAY ==
[2021-07-12 10:16] VITALS: BMI 31.8
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
== END ==
PROVIDERS: PCP Student in an Organized Health Care Education/Training Program; Referring Provider Physician Assistant; Visit Provider Physician Assistant
DX: S29.9XXA Unspecified injury of thorax, initial encounter (principal); X58.XXXA Exposure to other specified factors, initial encounter
CPT/HCPCS: 71101

== ENCOUNTER → 2021-09-27 10:11 | Outpatient (CLI) | payer MEDICARE, SELFPAY ==
[2021-07-12 10:16] VITALS: BMI 31.8
== END ==
PROVIDERS: PCP Student in an Organized Health Care Education/Training Program; Visit Provider Physician Assistant
DX: R10.9 Unspecified abdominal pain (principal)
CPT/HCPCS: 87086

== ENCOUNTER → 2021-10-10 09:55 | Outpatient (CLI) | payer MEDICARE, SELFPAY ==
[2021-07-12 10:16] VITALS: BMI 31.8
[2021-10-10 13:15] LABS: COVID19 -Nasal RAPID Negative (Negative)
== END ==
PROVIDERS: PCP Student in an Organized Health Care Education/Training Program; Visit Provider Family Medicine Sleep Medicine
DX: Z20.822 Contact with and (suspected) exposure to COVID-19 (principal)
CPT/HCPCS: 87635; C9803

== ENCOUNTER 2021-10-11 11:38 | Day surgery (SDC) | payer MEDICARE, SELFPAY ==
[2021-07-12 10:16] VITALS: BMI 31.8
[2021-10-04 07:54] VITALS: BMI 31.1
[2021-10-11] VITALS (9 sets, daily range): BP systolic 85–123; BP diastolic 41–84; PULSE 52–68; RESP 12–20; TEMP 36.3–36.7; O2SAT 88–98; BMI 31.1
[2021-10-11] MEDS: LACTATED RINGERS 1,000 ML 42 ML IV (13:20)
[2021-10-11] MEDS: OXYMETAZOLINE NASAL SPRAY 15 ML 2 SPRAYS NASAL ×2 (13:20→15:54)
--- NOTE | 2021-10-11 15:13 | PM.PREOP ---
Pre-operative Note Interval Note History & Physical reviewed/Exam performed by Physician: Yes Changes to H&P: No
--- NOTE | 2021-10-11 15:14 | P.OP_ITS ---
Operative Date/Time/Diagnoses Date of procedure: 10/11/21 Time of procedure: 17:12 Pre-op diagnosis: Chronic rhinosinusitis, acute recurrent maxillary sinusitis, nasal airway obstruction, inferior turbinate hypertrophy, dann bullosa Post-op diagnosis: same Procedure & Clinicians Procedure: 1. Bilateral endoscopic maxillary antrostomy with tissue removal 2. Bilateral endoscopic ANTERIOR ethmoidectomy 3. Bilateral dann bullosa resection 4. Bilateral inferior turbinate reduction via intramural cautery Same procedure as scheduled: Yes Indications: 50-year-old male with the above diagnoses incompletely managed with medical therapy presents for the above procedures. Following discussion of the material risks benefits complications and alternatives he elected to proceed. He is currently taking Bactrim begun 10/02 for acute exacerbation of chronic rhinosinusitis, will be using budesonide irrigations postoperatively. Surgeon: Davidson Turpin Click Yes if Unassisted: Yes Anesthesia Type: General and Local Operative Notes Findings: Right greater than left adnn bullosa of the middle turbinate, significant mucosal edema that decongested moderately well, primarily of the inferior turbinates. Muco purulence filling the left maxillary sinus, culture taken, hypertrophic mucosa. Anterior ethmoids essentially clear, however. Specimen(s): other (Cx LEFT maxillary) Estimated Blood Loss (mL): 100 Procedure in detail: Following identification and confirmation of consent, the patient was brought to the operating room suite and placed in the supine position. General endotracheal anesthesia was administered. Cotton with 4% lidocaine and Afrin on pledgets was placed into the nose bilaterally for several minutes. Following sterile prep and drape, the packing was removed. Unfortunately, decongestion was very poor, therefore I placed small pledgets with 1-1000 epinephrine in the nose for nearly 10 minutes. Under endoscopic guidance I infiltrated the posterior and anterior superior insertion of each middle turbinate. The left middle turbinate was slightly medialized and the backbiting forceps performed uncinectomy along with the microdebrider. The dann bullosa of the left middle turbinate was resected with the microdebrider. Maxillary antrostomy was created by extending the natural os posteriorly and inferiorly and additional inflamed mucosa was resected from within the maxillary sinus with curved forceps and the microdebrider. The ethmoid bulla was resected with the microdebrider. Hemostasis with Afrin and lidocaine on cotton was performed, eventually some localized suction electrocautery to the exposed areas of the middle turbinates. The identical procedure was performed on the right side beginning with medialization of the middle turbinate, resection of the lateral portion of the dnan bullosa to improve access. Uncinectomy, followed by maxillary antrostom y, and endoscopic microdebrider resection of some intra sinus inflamed mucosa although no aleena purulence on the right side. Ethmoid bulla was resected with the microdebrider. The head of each inferior turbinate had been previously infiltrated with local anesthetic. The 22 gauge spinal needle was used to impale the length of the turbinate and monopolar cautery on a setting of 15 was activated on slow withdrawal over 2 passes. Both inferior turbinates were treated. Turbinates were then outfractured with the Boies elevator. Small sponge counts were correct and he was extubated in the operating room and taken to recovery room in stable condition without no complication. Complications: none Post-operative Condition: stable Disposition: same day surgery Plan for aftercare: Nasal saline every hour while awake, begin irrigations t.i.d. tomorrow. Tylenol alternating with Advil for pain control, oxycodone for breakthrough pain. Elevate head of bed, no nose blowing, no straining for 2 weeks. Follow- up in 1 week
[2021-10-11] MEDS: LIDOCAINE 1% W/EPI 20 ML INJ (15:56)
[2021-10-11] MEDS: LIDOCAINE 4% SOLN 50 ML 20 ML TOP (15:57)
[2021-10-11] MEDS: BACITRACIN OINT 0.9 GM PCKT 1 APPLIC TOP (15:58)
--- NOTE | 2021-10-11 16:19 | SUR.OPER ---
Supine on padded OR bed, head on gel donut, arms padded and tucked at sides, legs uncrossed, safety belt at thigh, tape over blanket over lower legs . Gel pad under bilateral heels.
[2021-10-11] MEDS: ALBUTEROL/IPRATROPIUM 3 ML AMPUL INH (17:47)
== END 2021-10-11 18:28 | disposition home or self-care (01) ==
PROVIDERS: PCP Student in an Organized Health Care Education/Training Program; Referring Provider Otolaryngology; Visit Provider Otolaryngology
PROC: (CPT 31231; principal; 2021-10-11 13:15)
DX: J01.01 Acute recurrent maxillary sinusitis (principal); J32.4 Chronic pansinusitis; J34.89 Other specified disorders of nose and nasal sinuses; J34.3 Hypertrophy of nasal turbinates; B95.61 Methicillin susceptible Staphylococcus aureus infection as the cause of diseases classified elsewhere; I10 Essential (primary) hypertension; E11.9 Type 2 diabetes mellitus without complications; E78.5 Hyperlipidemia, unspecified; Z79.84 Long term (current) use of oral hypoglycemic drugs
CPT/HCPCS: 31254; 31267; 30802; 31240; 87070; 87075; 87077; 87147; 87186; 87205; A9270; J1100; J2405; J2704; J3010

== ENCOUNTER → 2021-10-24 09:43 | Outpatient (CLI) | payer MEDICARE, SELFPAY ==
[2021-07-12 10:16] VITALS: BMI 31.8
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
== END ==
PROVIDERS: PCP Student in an Organized Health Care Education/Training Program; Referring Provider Student in an Organized Health Care Education/Training Program; Visit Provider Student in an Organized Health Care Education/Training Program
DX: E11.9 Type 2 diabetes mellitus without complications (principal); Z71.3 Dietary counseling and surveillance; Z79.84 Long term (current) use of oral hypoglycemic drugs
CPT/HCPCS: 97802

== ENCOUNTER → 2021-11-27 09:23 | Outpatient (CLI) | payer MEDICARE, SELFPAY ==
[2021-07-12 10:16] VITALS: BMI 31.8
--- NOTE | 2021-11-27 15:58 | DIAB.FU ---
Diabetes Education Class Series: Diabetes and Nutrition Name: Sav Rush Date: 11/27/21 Time: [id number] Sav reports he has been working on more sleep and physical activity. States he is normally great about walking daily but was recently sick which impacted exercise. Class topics covered: ? Debunk nutrition myths and discuss how to sustain healthy eating long-term through moderation and variety ? Define macronutrients and determine their impact on blood sugars ? Discuss macronutrient pairing, Plate Method, and carb counting ? Review general recommendations for carbohydrates ? Practice label reading ? Discuss the role of fiber in diabetes and provide examples of sources ? Review heart health nutrition: fats, fiber, and sodium ? Determine recommendations for grocery shopping and eating out ? Discuss alcohol recommendations ? Review the role of substitute sugars in diabetes management ? Set SMART goals Goal Set: Walk 30 min 5 x per week ; reduce sodium intake to 2000 mg per day by reading food labels. Follow-up: Diabetes Physiology and Medication Class in one week Leilani Brown RDN, [facility] Certified Diabetes Care and Paving Machine Operator P: [phone] Thank you for this referral
== END ==
PROVIDERS: PCP Student in an Organized Health Care Education/Training Program; Referring Provider Student in an Organized Health Care Education/Training Program; Visit Provider Student in an Organized Health Care Education/Training Program
DX: E11.9 Type 2 diabetes mellitus without complications (principal); Z71.3 Dietary counseling and surveillance
CPT/HCPCS: G0109

== ENCOUNTER → 2021-12-04 09:25 | Outpatient (CLI) | payer MEDICARE, SELFPAY ==
[2021-07-12 10:16] VITALS: BMI 31.8
--- NOTE | 2021-12-05 17:14 | DIAB.FU ---
Diabetes Education Class Series: Diabetes Physiology and Medications Name: Sav Rush Date: 12/04/21 Time: [id number] Reports he has been tracking his physical activity successfully. Continues to work on dm management Class topics covered: ? Diabetes pathophysiology ? Discuss different types of diabetes ? Review criteria for diagnosing diabetes ? Review HgA1c measurement and associated blood sugars ? Review blood sugar monitoring safety, technique, and goals ? Discuss ways to reduce complications associated with diabetes, includes microvascular and macrovascular complications ? Review diabetes medications types, action, and side effects ? Health care visits recommended for people with T2DM ? Immunization recommended for people with T2DM ? SMART goals review Follow-up: Diabetes Lifestyle and Ongoing Support Class next week Leilani Brown RDN, [facility] Certified Diabetes Care and Commercial Credit Head P: [phone] Thank you for this referral
== END ==
PROVIDERS: PCP Student in an Organized Health Care Education/Training Program; Referring Provider Student in an Organized Health Care Education/Training Program; Visit Provider Student in an Organized Health Care Education/Training Program
DX: E11.9 Type 2 diabetes mellitus without complications (principal); Z71.3 Dietary counseling and surveillance
CPT/HCPCS: G0109

== ENCOUNTER → 2021-12-11 09:24 | Outpatient (CLI) | payer MEDICARE, SELFPAY ==
[2021-07-12 10:16] VITALS: BMI 31.8
--- NOTE | 2021-12-13 14:36 | DIAB.FU ---
Diabetes Education Class Series: Diabetes Lifestyle Change and Ongoing Support Name: Sav Rush Date: 12/11/21 Time: [id number] Sav reports nutrition continues to go well with premade meals, though is trying to be more conscious of Na intake. States he has been really consistent with physical activity, walking. Class topics covered: ? Discuss the difference between physical activity and exercise ? Determine physical activity benefits and impact on diabetes ? Review physical activity recommendations and safety ? Discuss emergency preparedness ? Discuss diabetes and emotions (diabetes burnout/distress) ? Review and practice stress management techniques ? Review support groups and community resources ? Discuss the role of family support in diabetes care ? What is going well? Challenges of diabetes? ? Set SMART goals Follow-up: 1:1 visit follow-up Leilani Brown RDN, [facility] Certified Diabetes Care and K [address] Principal P: [phone] Thank you for this referral
== END ==
PROVIDERS: PCP Student in an Organized Health Care Education/Training Program; Referring Provider Student in an Organized Health Care Education/Training Program; Visit Provider Student in an Organized Health Care Education/Training Program
DX: E11.9 Type 2 diabetes mellitus without complications (principal); Z71.3 Dietary counseling and surveillance
CPT/HCPCS: G0109

== ENCOUNTER → 2021-12-31 15:38 | Outpatient (CLI) | payer MEDICARE, SELFPAY ==
[2021-07-12 10:16] VITALS: BMI 31.8
[2021-12-31 16:13] LABS: Hemoglobin A1C% w Est Avg Glu 6.1 % (4.0-6.0)
[2021-12-31 17:21] LABS: Cholesterol 183 mg/dL (140-199); HDL Cholesterol 39 mg/dL (40-60); LDL Cholesterol Calculated 92 mg/dL (<100); Triglycerides 258 mg/dL (35-150)
[2021-12-31 17:46] LABS: TSH w/ Reflex to FT4 0.68 uIU/mL (0.47-4.68)
== END ==
PROVIDERS: PCP Student in an Organized Health Care Education/Training Program; Referring Provider Student in an Organized Health Care Education/Training Program; Visit Provider Student in an Organized Health Care Education/Training Program
DX: E11.9 Type 2 diabetes mellitus without complications (principal); E78.1 Pure hyperglyceridemia; F41.0 Panic disorder [episodic paroxysmal anxiety]
CPT/HCPCS: 36415; 80061; 83036; 84443

== ENCOUNTER → 2022-01-22 12:03 | Outpatient (CLI) | payer MEDICARE, SELFPAY ==
[2021-07-12 10:16] VITALS: BMI 31.8
--- NOTE | 2022-01-22 12:04 | DI.US.S_ITS ---
PROCEDURE: US PERIP VENOUS LOW EXTREM RT INDICATIONS: Swelling in LE TECHNIQUE: Real-time imaging, as well as color and pulse Doppler interrogation, were performed of the lower extremity deep veins from the inguinal ligament to the popliteal fossa. COMPARISON: [facility], , [facility] VENOUS LOW EXTREM RT, 04/02/2018, 16:23. FINDINGS: The common femoral, femoral and popliteal veins are normally compressible, and free of intraluminal thrombus. Color and pulse Doppler demonstrate normal phasic intraluminal flow. There is normal augmentation response to distal compression maneuver. IMPRESSION: No evidence of DVT in visualized right lower extremity veins. Dictated by: Manny Gaspar M.D. on 01/22/2022 at 13:37 Approved by: Manny Gaspar M.D. on 01/22/2022 at 13:37
== END ==
PROVIDERS: PCP Student in an Organized Health Care Education/Training Program; Referring Provider Student in an Organized Health Care Education/Training Program; Visit Provider Student in an Organized Health Care Education/Training Program
DX: R60.0 Localized edema (principal)
CPT/HCPCS: 93971

== ENCOUNTER → 2022-06-13 08:21 | Outpatient (CLI) | payer MEDICARE, SELFPAY ==
[2021-07-12 10:16] VITALS: BMI 31.8
[2022-06-13 08:56] LABS: BUN Creatinine Ratio 12.4 (6-22); Blood Urea Nitrogen 14 mg/dL (9-20); Calcium 10.6 mg/dL (8.4-10.2); Carbon Dioxide 27 mmol/L (22-32); Chloride 101 mmol/L (98-107); Estimated Glomerular Filt Rate > 60 mL/min (>60); Glucose 148 mg/dL (70-100); HEMOLYSIS < 15 (0-50); Potassium 5.1 mmol/L (3.4-5.1); Sodium 138 mmol/L (137-145)
[2022-06-13 09:38] LABS: Creatinine Urine Random 65.9 mg/dL
[2022-06-13 09:43] LABS: Microalbumin Urine Random < 0.6 mg/dL (0-1.6)
[2022-06-18 17:38] LABS: Cystatin C 0.91 mg/L (0.67-1.14)
== END ==
PROVIDERS: PCP Student in an Organized Health Care Education/Training Program; Referring Provider Student in an Organized Health Care Education/Training Program; Visit Provider Student in an Organized Health Care Education/Training Program
DX: E11.9 Type 2 diabetes mellitus without complications (principal); I10 Essential (primary) hypertension
CPT/HCPCS: 36415; 80048; 82043; 82570; 82610; 83036

== ENCOUNTER → 2023-01-22 10:16 | Outpatient (CLI) | payer MEDICARE, SELFPAY ==
[2021-07-12 10:16] VITALS: BMI 31.8
[2023-01-22 12:37] LABS: Add Manual Diff / Slide Review NO; Basophils Absolute Auto 0 /uL (0-100); Basophils Percent Auto 0.6 % (0-2); Eosinophils Absolute Auto 100 /uL (0-450); Eosinophils Percent Auto 1.4 % (2-4); Hematocrit 42.9 % (41-53); Hemoglobin 14.6 g/dL (13.5-17.5); Lymphocytes Absolute Auto 1200 /uL (1100-4500); Lymphocytes Percent Auto 27.3 % (25-40); Mean Corpuscular HGB Conc 34.1 % (30-36); Mean Corpuscular Hemoglobin 30.7 PG (26-34); Monocytes Absolute Auto 400 /uL (0-900); Monocytes Percent Auto 9.3 % (3-14); Neutrophils Absolute Auto 2700 /uL (1500-7000); Neutrophils Percent Auto 61.4 % (50-75); Platelet Count 207 X10^3/uL (150-400); Red Blood Cell Count 4.76 X10^6/uL (4.5-5.9); White Blood Cell Count 4.4 X10^3/uL (4.5-11.0)
[2023-01-22 12:43] LABS: Appearance Urine UA CLEAR; Bilirubin Urine UA NEGATIVE (NEGATIVE); Color Urine UA YELLOW; Glucose Urine UA NEGATIVE (Negative); Ketones Urine UA TRACE (NEGATIVE); Leukocyte Esterase Urine UA NEGATIVE (NEGATIVE); Nitrite Urine UA NEGATIVE (Negative); Occult Blood Urine UA NEGATIVE (Negative); Protein Urine UA NEGATIVE (Negative); Specific Gravity Urine UA 1.015 (1.000-1.035); Urobilinogen Urine UA 0.2 E.U./dL (0.2); pH Urine UA 6.5 (4.5-8.0)
[2023-01-22 13:01] LABS: Bacteria Urine None Seen; Culture Indicated Urine Cult Not Indicated; RBC Urine 0-1/HPF (0-5/HPF); Squamous Epithelial Cell Urine 0-1 /HPF (0-5/HPF); WBC Urine 0-1/HPF (0-5/HPF)
[2023-01-22 13:06] LABS: Alanine Aminotransferase 31 IU/L (<50); Albumin 4.6 g/dL (3.5-5.0); Albumin Globulin Ratio 1.6 (1.0-2.8); Alkaline Phosphatase 43 U/L (38-126); Aspartate Aminotransferase 39 IU/L (17-59); Bilirubin Total 0.8 mg/dL (0.2-1.3); Blood Urea Nitrogen 18 mg/dL (9-20); Calcium 9.6 mg/dL (8.4-10.2); Carbon Dioxide 24 mmol/L (22-32); Chloride 101 mmol/L (98-107); Cholesterol 217 mg/dL (140-199); Estimated Glomerular Filt Rate > 60 mL/min (>60); Globulin 2.9 g/dL (1.7-4.1); Glucose 178 mg/dL (70-100); HDL Cholesterol 34 mg/dL (40-60); HEMOLYSIS < 15 (0-50); Potassium 4.7 mmol/L (3.4-5.1); Sodium 137 mmol/L (137-145); Total Protein 7.5 g/dL (6.3-8.2); Triglycerides 486 mg/dL (35-150)
[2023-01-22 13:16] LABS: Hemoglobin A1C% w Est Avg Glu 7.1 % (4.0-6.0)
[2023-01-22 13:37] LABS: Prostate Specific Antigen Scrn 1.65 ng/mL (0.1-4.0)
== END ==
PROVIDERS: PCP Pediatrics; Referring Provider Pediatrics; Visit Provider Pediatrics
DX: E11.9 Type 2 diabetes mellitus without complications (principal); Z12.5 Encounter for screening for malignant neoplasm of prostate; E78.1 Pure hyperglyceridemia; F43.10 Post-traumatic stress disorder, unspecified; G62.9 Polyneuropathy, unspecified; G89.29 Other chronic pain; I10 Essential (primary) hypertension; M54.50 Low back pain, unspecified
CPT/HCPCS: 36415; 80053; 80061; 81001; 83036; 85025; G0103

== ENCOUNTER → 2023-07-30 07:49 | Outpatient (CLI) | payer MEDICARE, SELFPAY ==
[2021-07-12 10:16] VITALS: BMI 31.8
--- NOTE | 2023-07-30 07:52 | DI.RAD.S_ITS ---
PROCEDURE: XR SHOULDER RT MIN 2V INDICATIONS: RIGHT SHOULDER PAIN TECHNIQUE: Three views of the shoulder were acquired. COMPARISON: None. FINDINGS: Bones: No fractures or dislocations. Mild degenerative change at the AC joint. No suspicious bony lesions. Visualized ribs appear intact. Soft tissues: No suspicious soft tissue calcifications. IMPRESSION: Mild degenerative changes. Otherwise normal shoulder. Dictated by: Ana Martinez M.D. on 07/30/2023 at 10:11 Approved by: Ana Martinez M.D. on 07/30/2023 at 10:12
== END ==
PROVIDERS: PCP Student in an Organized Health Care Education/Training Program; Referring Provider Anesthesiology; Visit Provider Anesthesiology
DX: M25.511 Pain in right shoulder (principal)
CPT/HCPCS: 73030

== ENCOUNTER → 2024-08-19 15:11 | Outpatient (CLI) | payer MEDICARE, SELFPAY ==
[2021-07-12 10:16] VITALS: BMI 31.8
--- NOTE | 2024-08-19 15:12 | DI.RAD.S_ITS ---
PROCEDURE: XR KNEE RT 1TO2V INDICATIONS: pain TECHNIQUE: 2 views of the knee were acquired. COMPARISON: None. FINDINGS: Bones: No fractures or dislocations. No suspicious bony lesions. Soft tissues: No joint effusion. No suspicious soft tissue calcifications. IMPRESSION: No acute bony abnormality or significant effusion. If symptoms persist with conservative management, consider cross-sectional imaging such as CT or MRI. Approved by: Darya Stroud M.D.,Ph.D. on 08/23/2024 at 8:41
== END ==
PROVIDERS: PCP Student in an Organized Health Care Education/Training Program; Referring Provider Student in an Organized Health Care Education/Training Program; Visit Provider Student in an Organized Health Care Education/Training Program
DX: M25.561 Pain in right knee (principal)
CPT/HCPCS: 73560

== ENCOUNTER → 2024-09-08 13:46 | Outpatient (CLI) | payer MEDICARE, SELFPAY ==
[2021-07-12 10:16] VITALS: BMI 31.8
--- NOTE | 2024-09-08 13:47 | DI.MRI.S_ITS ---
PROCEDURE: MR KNEE RT WO CON INDICATIONS: right knee pain. mRI without contarst TECHNIQUE: Noncontrast sagittal PD fast spin echo and T2 fast spin echo with fat saturation, sagittal 3-D FLASH with fat saturation; coronal T1 spin echo and PD fast spin echo with fat saturation, and axial PD fast spin echo with fat saturation through the knee. COMPARISON: [facility], CR, XR KNEE RT 1TO2V, 08/19/2024, 15:11. FINDINGS: Image quality: Diagnostic Menisci: Medial: Complex tear of the posterior body and posterior horn of the medial meniscus, mostly involving the free edge. Lateral: Intact. Meniscopopliteal fascicles maintained. Cruciate ligaments: Intact Medial structures: MCL: Intact Pes anserine tendons: Intact Semimembranosus: Mild insertional tendinopathy Lateral structures: LCL: Mild proximal edema Biceps femoris: Intact IT band: Intact Popliteus tendon: Mild insertional tendinopathy Anterior structures: Extensor mechanism: Intact Fat pads: There is significant edema and fluid within the prepatellar bursa, with intra-articular bodies. The largest pocket measures 1.1 cm in thickness and 3.7 cm in length. Medial retinaculum: Intact. Trochlea: Unremarkable morphology. Bone and joint: Bones: No fracture, dislocation, or suspicious edema Cartilage: Focal full-thickness fissure and subchondral edema in the posterior weight-bearing surface of the medial femoral condyle. Focal full-thickness fissure and subchondral edema also seen along the medial patellar facet. Mild to moderate chondral heterogeneity is seen elsewhere. Joint space: Small joint effusion Ambrocio's cyst: [id number] Ambrocio's cyst Soft tissues: No significant vascular or other soft tissue pathology. IMPRESSION: Complex medial meniscal posterior body and posterior horn tears mostly involving the free edge. Mild sprain of the LCL. Intact cruciate ligaments. Mild semimembranosus and popliteus insertional tendinopathy. Significant fluid and edema within the prepatellar bursa measuring up to 3.7 cm in length. Bursal loose bodies are present. Small joint effusion. 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 Overall [id number] arthrosis, with focal full-thickness fissures and mild subchondral edema along the posterior weight-bearing surface of the medial femoral condyle and patellar medial facet. Dictated by: Yvan Talavera M.D. on 09/09/2024 at 12:34 Approved by: Yvan Talavera M.D. on 09/09/2024 at 12:38
== END ==
LOC: MRI 13:47
PROVIDERS: PCP Student in an Organized Health Care Education/Training Program; Referring Provider Student in an Organized Health Care Education/Training Program; Visit Provider Student in an Organized Health Care Education/Training Program
DX: S83.231A Complex tear of medial meniscus, current injury, right knee, initial encounter (principal); S83.421A Sprain of lateral collateral ligament of right knee, initial encounter; M25.461 Effusion, right knee; M71.21 Synovial cyst of popliteal space [Baker], right knee; M17.11 Unilateral primary osteoarthritis, right knee; M25.561 Pain in right knee
CPT/HCPCS: 73721